=== PATIENT | male | born 1970 | race African-American/Black ===

== ENCOUNTER 2017-06-23 01:40 | Inpatient (IN) | payer MEDICAID ==
[~2017-06-23] VITALS: Ht 193 cm; Wt 122.5 kg
[~2017-06-23 01:40] MED LIST: ASPI-1160 PO; COR3 PO; DILT240C91 PO; FERR-63 PO; FURO40TA5 PO; GLYB2.5T4 PO; HYDR100T26 PO; INSULIN; LIP40 PO; LOSA100T3 PO
[2017-06-23] MEDS ORDERED: ASPIRIN 81MG TABLET PO STA (02:54)
[2017-06-23] MEDS ORDERED: MORPHINE SULFATE 4 MG/ML CPJ (NOT FOR IM USE) IV STA (02:54)
[2017-06-23] MEDS ORDERED: FUROSEMIDE 40MG/4ML VIAL IV STA (02:54)
[2017-06-23 03:28] LABS: BASOPHILS % 1.3 % (0.0-2.0); HEMATOCRIT. 25.1 % (42.0-52.0); LYMPHOCYTES % 25.7 % (20.0-50.0); MEAN CORPUSCULAR HEMOGLOBIN 28.1 pg (28.0-32.0); MEAN PLATELET VOLUME 7.7 fl (7.4-10.4); MONOCYTES % 7.6 % (2.0-8.0); NEUTROPHILS % 62.4 % (40.0-76.0); PLATELET 372 x1000/uL (130-400); RED BLOOD CELL COUNT 2.85 mill/uL (4.7-6.1); RED CELL DISTRIBUTION WIDTH 14.3 % (11.6-14.6)
[2017-06-23 03:33] LABS: PARTIAL THROMBOPLASTIN TIME 31.3 sec (23.4-31.0); PROTHROMBIN TIME 10.1 sec (9.4-11.6)
[2017-06-23 03:43] LABS: CARBON DIOXIDE 23 mEq/L (21-32); CHLORIDE 111 mEq/L (98-107); TROPONIN I 0.04 ng/mL (0.00-0.04)
[2017-06-23 08:59] VITALS: BP 164/90
[2017-06-23 11:24] VITALS: BP 179/109
[2017-06-23 12:36] VITALS: BP 164/90
[2017-06-23] MEDS ORDERED: DEXTROSE 50% WATER 50ML SYRINGE IV PRN (13:15)
[2017-06-23] MEDS ORDERED: CLONIDINE 0.1MG TABLET PO PRN (13:15)
[2017-06-23] MEDS ORDERED: ASPIRIN 81MG TABLET PO SCH (13:15)
[2017-06-23] MEDS ORDERED: LORAZEPAM 1MG TABLET PO PRN (13:15)
[2017-06-23] MEDS ORDERED: HYDROCODONE/ACETAMINOPHEN 10/325MG TABLET PO PRN (13:15)
[2017-06-23] MEDS ORDERED: FUROSEMIDE 40MG TABLET PO SCH (13:15)
[2017-06-23] MEDS: FERROUS SULFATE 325MG TABLET PO SCH (14:49)
[2017-06-23] MEDS: LOSARTAN POTASSIUM 100 MG TABLET PO SCH (14:49)
[2017-06-23] MEDS: GLYBURIDE 5MG TABLET PO SCH (14:50)
[2017-06-23] MEDS: ENOXAPARIN 40MG/0.4ML SYR SUBCUT SCH (14:52)
[2017-06-23] MEDS ORDERED: FUROSEMIDE 40MG/4ML VIAL IVP SCH ×2 (15:30→21:00)
[2017-06-23 15:35] VITALS: BP 174/95
[2017-06-23 16:28] LABS: TROPONIN I 0.04 ng/mL (0.00-0.04)
[2017-06-23] MEDS: BLOOD SUGAR DIAGNOSTIC STRIP TEST SCH ×2 (17:20→21:00)
[2017-06-23] MEDS: INSULIN LISPRO 100 UNITS/ML SUBCUT SCH ×2 (18:41→21:00)
[2017-06-23 20:00] VITALS: BP 173/89
[2017-06-23] MEDS: FUROSEMIDE 40MG/4ML VIAL IVP SCH (20:52)
[2017-06-23] MEDS: CARVEDILOL 6.25 MG TABLET PO SCH (20:59)
[2017-06-23] MEDS ORDERED: CARVEDILOL 3.125 MG TABLET PO SCH (21:00)
[2017-06-23] MEDS: ATORVASTATIN CALCIUM 40MG TABLET PO SCH (21:00)
[2017-06-23] MEDS: HYDRALAZINE HCL 100MG TABLET PO SCH (21:00)
[2017-06-23] MEDS: DILTIAZEM HCL 240MG ER (24HR) PO SCH (21:00)
[2017-06-23 22:48] LABS: CLARITY URINE CLEAR (CLEAR); COLOR URINE YELLOW (YELLOW); KETONES URINE NEGATIVE (NEGATIVE); LEUKOCYTE ESTERASE URINE NEGATIVE (NEGATIVE); NITRITE URINE NEGATIVE (NEGATIVE); OCCULT BLOOD URINE TRACE (NEGATIVE); PROTEIN URINE 3+ (NEGATIVE); SPECIFIC GRAVITY URINE 1.014 (1.005-1.030); UROBILINOGEN URINE 0.2 E.U./dL (0.2-1.0)
[2017-06-23 23:00] LABS: *AMPHETAMINES SCREEN URINE NEGATIVE (NEGATIVE); *BARBITURATES SCREEN URINE NEGATIVE (NEGATIVE); *BENZODIAZEPINES SCREEN URINE NEGATIVE (NEGATIVE); *COCAINE SCREEN URINE NEGATIVE (NEGATIVE); CANNABINOID URINE SCREEN NEGATIVE (NEGATIVE); METHADONE URINE SCREEN NEGATIVE (NEGATIVE); OPIATES URINE SCREEN NEGATIVE (NEGATIVE); PHENCYCLIDINE URINE SCREEN NEGATIVE (NEGATIVE)
[2017-06-23 23:50] LABS: TROPONIN I 0.04 ng/mL (0.00-0.04)
[2017-06-24] VITALS: BP 170/106
[2017-06-24] MEDS: IPRATROPIUM/ALBUTEROL 0.5-3(2.5)MG/3ML NEB INH PRN ×2 (01:54→17:49)
[2017-06-24 04:00] VITALS: BP 134/83
[2017-06-24] MEDS: BLOOD SUGAR DIAGNOSTIC STRIP TEST SCH ×4 (06:14→21:07)
[2017-06-24] MEDS: FUROSEMIDE 40MG/4ML VIAL IVP SCH ×2 (06:14→17:48)
[2017-06-24] MEDS: INSULIN LISPRO 100 UNITS/ML SUBCUT SCH ×4 (07:50→21:00)
[2017-06-24 07:59] LABS: BASOPHILS % 1.6 % (0.0-2.0); EOSINOPHILS % 4.1 % (0.0-5.0); HEMATOCRIT. 22.8 % (42.0-52.0); HEMOGLOBIN. 7.5 g/dL (14.0-18.0); LYMPHOCYTES % 32.5 % (20.0-50.0); MEAN CORPUSCULAR HEMOGLOBIN 29.1 pg (28.0-32.0); MEAN CORPUSCULAR VOLUME 88.2 fL (80.0-94.0); MEAN PLATELET VOLUME 7.8 fl (7.4-10.4); MONOCYTES % 10.1 % (2.0-8.0); NEUTROPHILS % 51.7 % (40.0-76.0); PLATELET 328 x1000/uL (130-400); RED BLOOD CELL COUNT 2.58 mill/uL (4.7-6.1); RED CELL DISTRIBUTION WIDTH 14.6 % (11.6-14.6)
[2017-06-24 08:00] VITALS: BP 140/80
[2017-06-24 08:26] LABS: CARBON DIOXIDE 24 mEq/L (21-32); CHLORIDE 109 mEq/L (98-107); HDL CHOLESTEROL 44 mg/dL (40-59); LDL CHOLESTEROL 114 mg/dL (5-100)
[2017-06-24 08:53] LABS: PHOSPHORUS 5.4 mg/dL (2.5-4.9)
[2017-06-24] MEDS ORDERED: METOLAZONE 5MG TABLET PO SCH (09:00)
[2017-06-24] MEDS: FERROUS SULFATE 325MG TABLET PO SCH (09:31)
[2017-06-24] MEDS: LOSARTAN POTASSIUM 100 MG TABLET PO SCH (09:32)
[2017-06-24] MEDS: GLYBURIDE 5MG TABLET PO SCH (09:32)
[2017-06-24] MEDS: CARVEDILOL 6.25 MG TABLET PO SCH ×2 (09:34→21:02)
[2017-06-24] MEDS: DILTIAZEM HCL 240MG ER (24HR) PO SCH ×2 (09:40→21:02)
[2017-06-24] MEDS: ASPIRIN 81MG TABLET PO SCH (09:41)
[2017-06-24] MEDS: HYDRALAZINE HCL 100MG TABLET PO SCH ×2 (09:48→21:03)
[2017-06-24 10:19] LABS: BG BASE EXCESS -1.5 mmol/L (-2.0-2.0); BG CARBOXYHEMOGLOBIN 0.7 % (0.5-1.5); BG DEOXYHEMOGLOBIN 3.7 % (0.0-5.0); BG FRACTION INSPIRED OXYGEN 21; BG HCO3 ACT 22.6 mmol/L (22.0-26.0); BG METHEMOGLOBIN 0.1 % (0.0-1.5); BG OXYGEN SATURATION 96.3 % (92.0-98.5); BG OXYHEMOGLOBIN 95.5 % (94.0-97.0); BG PH 7.428 (7.350-7.450); BG PO2 90.2 mmHg (75.0-100.0); BG SAMPLE SITE LEFT RADIAL; BG TOTAL HEMOGLOBIN 7.4 g/dL (12.0-18.0); BG VENT MODE ROOM AIR
[2017-06-24 11:03] VITALS: BP 126/71
[2017-06-24] MEDS: ENOXAPARIN 40MG/0.4ML SYR SUBCUT SCH (15:23)
[2017-06-24 15:42] VITALS: BP 122/77
[2017-06-24] MEDS: SEVELAMER CARBONATE 800 MG TABLET PO SCH (18:26)
[2017-06-24 18:47] LABS: HEPATITIS B SURFACE ANTIGEN NEGATIVE
[2017-06-24 19:15] LABS: HEPATITIS B CORE AB IGM NEGATIVE
[2017-06-24 20:00] VITALS: BP 128/80
[2017-06-24] MEDS: EPOETIN ALFA 10000UNITS/ML VIAL SUBCUT SCH (21:03)
[2017-06-24] MEDS: ATORVASTATIN CALCIUM 40MG TABLET PO SCH (21:03)
[2017-06-25 00:10] VITALS: BP 141/77
[2017-06-25 04:00] VITALS: BP 151/80
[2017-06-25] MEDS: BLOOD SUGAR DIAGNOSTIC STRIP TEST SCH ×4 (06:44→21:05)
[2017-06-25 07:18] LABS: BASOPHILS % 1.1 % (0.0-2.0); HEMATOCRIT. 22.1 % (42.0-52.0); HEMOGLOBIN. 7.4 g/dL (14.0-18.0); LYMPHOCYTES % 25.5 % (20.0-50.0); MEAN CORPUSCULAR HEMOGLOBIN 29.3 pg (28.0-32.0); MEAN CORPUSCULAR VOLUME 87.6 fL (80.0-94.0); MEAN PLATELET VOLUME 7.9 fl (7.4-10.4); MONOCYTES % 9.6 % (2.0-8.0); NEUTROPHILS % 60.8 % (40.0-76.0); PLATELET 330 x1000/uL (130-400); RED BLOOD CELL COUNT 2.53 mill/uL (4.7-6.1); RED CELL DISTRIBUTION WIDTH 14.3 % (11.6-14.6)
[2017-06-25] MEDS: INSULIN LISPRO 100 UNITS/ML SUBCUT SCH ×4 (07:50→21:00)
[2017-06-25 08:05] VITALS: BP 140/84
[2017-06-25] MEDS: FUROSEMIDE 40MG/4ML VIAL IVP SCH ×2 (09:13→17:15)
[2017-06-25] MEDS: SEVELAMER CARBONATE 800 MG TABLET PO SCH ×3 (09:13→17:21)
[2017-06-25] MEDS: GLYBURIDE 5MG TABLET PO SCH (09:14)
[2017-06-25] MEDS: LOSARTAN POTASSIUM 100 MG TABLET PO SCH (09:16)
[2017-06-25] MEDS: DILTIAZEM HCL 240MG ER (24HR) PO SCH ×2 (09:16→21:02)
[2017-06-25] MEDS: FERROUS SULFATE 325MG TABLET PO SCH (09:17)
[2017-06-25] MEDS: CALCITRIOL 0.25MCG CAPSULE PO SCH (09:17)
[2017-06-25] MEDS: HYDRALAZINE HCL 100MG TABLET PO SCH ×2 (09:17→21:03)
[2017-06-25] MEDS: ASPIRIN 81MG TABLET PO SCH (09:17)
[2017-06-25] MEDS: CARVEDILOL 6.25 MG TABLET PO SCH (09:17)
[2017-06-25] MEDS: METOLAZONE 5MG TABLET PO SCH (09:23)
[2017-06-25] MEDS: FOLIC ACID/VITAMIN B COMP W-C TABLET PO SCH (12:45)
[2017-06-25] MEDS ORDERED: SODIUM BICARBONATE 4% (2.4MEQ) 5ML VIAL IV ONE (13:18)
[2017-06-25] MEDS ORDERED: LIDOCAINE HCL 1% 20ML VIAL (Pyxis) INJ ONE (13:18)
[2017-06-25] MEDS: ENOXAPARIN 40MG/0.4ML SYR SUBCUT SCH (14:00)
[2017-06-25 16:46] VITALS: BP 160/85
[2017-06-25 20:27] VITALS: BP 165/87
[2017-06-25] MEDS: ATORVASTATIN CALCIUM 40MG TABLET PO SCH (21:03)
[2017-06-25] MEDS: CARVEDILOL 12.5MG TABLET PO SCH (21:04)
[2017-06-26 00:49] VITALS: BP 155/83
[2017-06-26 05:49] VITALS: BP 142/75
[2017-06-26] MEDS: FUROSEMIDE 40MG/4ML VIAL IVP SCH ×2 (06:15→17:59)
[2017-06-26] MEDS: BLOOD SUGAR DIAGNOSTIC STRIP TEST SCH ×4 (06:27→21:00)
[2017-06-26] MEDS: INSULIN LISPRO 100 UNITS/ML SUBCUT SCH ×4 (07:39→23:06)
[2017-06-26 07:55] LABS: HEMOGLOBIN 7.8 g/dL (14.0-18.0); MEAN CORPUSCULAR HEMOGLOBIN 29.6 pg (28.0-32.0); MEAN CORPUSCULAR VOLUME 87.1 fL (80.0-94.0); PLATELET 330 x1000/uL (130-400); RED BLOOD CELL COUNT 2.64 mill/uL (4.7-6.1); RED CELL DISTRIBUTION WIDTH 14.5 % (11.6-14.6)
[2017-06-26 08:00] VITALS: BP 156/84
[2017-06-26] MEDS: HYDRALAZINE HCL 100MG TABLET PO SCH ×2 (09:29→23:01)
[2017-06-26] MEDS: FERROUS SULFATE 325MG TABLET PO SCH (09:29)
[2017-06-26] MEDS: ASPIRIN 81MG TABLET PO SCH (09:30)
[2017-06-26] MEDS: CALCITRIOL 0.25MCG CAPSULE PO SCH (09:30)
[2017-06-26] MEDS: SEVELAMER CARBONATE 800 MG TABLET PO SCH ×3 (09:30→19:01)
[2017-06-26] MEDS: CARVEDILOL 12.5MG TABLET PO SCH ×2 (09:30→22:55)
[2017-06-26] MEDS: DILTIAZEM HCL 240MG ER (24HR) PO SCH ×2 (09:30→23:04)
[2017-06-26] MEDS: FOLIC ACID/VITAMIN B COMP W-C TABLET PO SCH (09:30)
[2017-06-26] MEDS: GLYBURIDE 5MG TABLET PO SCH (09:30)
[2017-06-26] MEDS: METOLAZONE 5MG TABLET PO SCH (09:30)
[2017-06-26] MEDS: LOSARTAN POTASSIUM 100 MG TABLET PO SCH (10:04)
[2017-06-26] MEDS: ENOXAPARIN 40MG/0.4ML SYR SUBCUT SCH (14:00)
[2017-06-26] MEDS ORDERED: HEPARIN SODIUM 1,000 UNIT/1ML VIAL IV NR (15:15)
[2017-06-26 17:00] VITALS: BP 142/74
[2017-06-26 20:00] VITALS: BP 115/98
[2017-06-26 20:13] VITALS: BP 115/98
[2017-06-26] MEDS: EPOETIN ALFA 10000UNITS/ML VIAL SUBCUT SCH (21:00)
[2017-06-26] MEDS: ATORVASTATIN CALCIUM 40MG TABLET PO SCH (22:56)
[2017-06-27] VITALS: BP 172/94
[2017-06-27 04:00] VITALS: BP 135/84
[2017-06-27] MEDS: FUROSEMIDE 40MG/4ML VIAL IVP SCH ×3 (07:04→22:41)
[2017-06-27] MEDS: BLOOD SUGAR DIAGNOSTIC STRIP TEST SCH ×4 (07:20→21:49)
[2017-06-27 08:00] VITALS: BP 145/85
[2017-06-27] MEDS: DILTIAZEM HCL 240MG ER (24HR) PO SCH ×2 (09:00→20:10)
[2017-06-27] MEDS: LOSARTAN POTASSIUM 100 MG TABLET PO SCH (09:37)
[2017-06-27] MEDS: METOLAZONE 5MG TABLET PO SCH (09:37)
[2017-06-27] MEDS: SEVELAMER CARBONATE 800 MG TABLET PO SCH ×3 (09:38→18:37)
[2017-06-27] MEDS: FOLIC ACID/VITAMIN B COMP W-C TABLET PO SCH (09:38)
[2017-06-27] MEDS: ASPIRIN 81MG TABLET PO SCH (09:39)
[2017-06-27] MEDS: FERROUS SULFATE 325MG TABLET PO SCH (09:40)
[2017-06-27] MEDS: HYDRALAZINE HCL 100MG TABLET PO SCH ×2 (09:40→21:49)
[2017-06-27] MEDS: CARVEDILOL 12.5MG TABLET PO SCH ×2 (09:41→21:49)
[2017-06-27] MEDS: GLYBURIDE 5MG TABLET PO SCH (09:41)
[2017-06-27] MEDS: CALCITRIOL 0.25MCG CAPSULE PO SCH (09:42)
[2017-06-27 12:00] VITALS: BP 149/87
[2017-06-27] MEDS: INSULIN LISPRO 100 UNITS/ML SUBCUT SCH ×3 (13:06→21:00)
[2017-06-27] MEDS: ENOXAPARIN 40MG/0.4ML SYR SUBCUT SCH (14:41)
[2017-06-27 16:00] VITALS: BP 155/86
[2017-06-27 20:03] VITALS: BP 144/77
[2017-06-27] MEDS: ATORVASTATIN CALCIUM 40MG TABLET PO SCH (20:10)
[2017-06-27] MEDS: ACETAMINOPHEN 325MG TABLET PO PRN (20:11)
[2017-06-28] VITALS: BP 129/70
[2017-06-28 04:00] VITALS: BP 144/77
[2017-06-28 05:56] LABS: HEMOGLOBIN 7.4 g/dL (14.0-18.0); MEAN CORPUSCULAR HEMOGLOBIN 29.4 pg (28.0-32.0); MEAN CORPUSCULAR VOLUME 87.6 fL (80.0-94.0); PLATELET 300 x1000/uL (130-400); RED BLOOD CELL COUNT 2.52 mill/uL (4.7-6.1); RED CELL DISTRIBUTION WIDTH 14.2 % (11.6-14.6)
[2017-06-28] MEDS: BLOOD SUGAR DIAGNOSTIC STRIP TEST SCH ×4 (06:26→21:00)
[2017-06-28] MEDS: FUROSEMIDE 40MG/4ML VIAL IVP SCH ×2 (06:38→17:29)
[2017-06-28] MEDS: INSULIN LISPRO 100 UNITS/ML SUBCUT SCH ×4 (07:50→21:00)
[2017-06-28 08:20] VITALS: BP 155/73
[2017-06-28] MEDS: LOSARTAN POTASSIUM 100 MG TABLET PO SCH (08:28)
[2017-06-28] MEDS: GLYBURIDE 5MG TABLET PO SCH (08:28)
[2017-06-28] MEDS: FERROUS SULFATE 325MG TABLET PO SCH (08:28)
[2017-06-28] MEDS: SEVELAMER CARBONATE 800 MG TABLET PO SCH ×3 (08:28→17:29)
[2017-06-28] MEDS: DILTIAZEM HCL 240MG ER (24HR) PO SCH ×2 (08:28→22:24)
[2017-06-28] MEDS: METOLAZONE 5MG TABLET PO SCH (08:29)
[2017-06-28] MEDS: ASPIRIN 81MG TABLET PO SCH (08:29)
[2017-06-28] MEDS: CALCITRIOL 0.25MCG CAPSULE PO SCH (08:29)
[2017-06-28] MEDS: FOLIC ACID/VITAMIN B COMP W-C TABLET PO SCH (08:29)
[2017-06-28] MEDS: HYDRALAZINE HCL 100MG TABLET PO SCH ×2 (08:29→22:24)
[2017-06-28] MEDS: CARVEDILOL 12.5MG TABLET PO SCH ×2 (08:36→22:24)
[2017-06-28 12:28] VITALS: BP 115/63
[2017-06-28] MEDS: ENOXAPARIN 40MG/0.4ML SYR SUBCUT SCH (13:00)
[2017-06-28 16:00] VITALS: BP 100/70
[2017-06-28 20:00] VITALS: BP 139/74
[2017-06-28] MEDS: ATORVASTATIN CALCIUM 40MG TABLET PO SCH (22:24)
[2017-06-29] VITALS: BP 135/72
[2017-06-29 04:00] VITALS: BP 137/73
[2017-06-29] MEDS: BLOOD SUGAR DIAGNOSTIC STRIP TEST SCH ×4 (06:40→21:42)
[2017-06-29] MEDS: FUROSEMIDE 40MG/4ML VIAL IVP SCH ×2 (06:40→19:57)
[2017-06-29] MEDS: INSULIN LISPRO 100 UNITS/ML SUBCUT SCH ×5 (07:50→22:00)
[2017-06-29 07:54] VITALS: BP 140/77
[2017-06-29] MEDS: CARVEDILOL 12.5MG TABLET PO SCH ×2 (10:20→21:44)
[2017-06-29] MEDS: FOLIC ACID/VITAMIN B COMP W-C TABLET PO SCH (10:20)
[2017-06-29] MEDS: METOLAZONE 5MG TABLET PO SCH (10:20)
[2017-06-29] MEDS: FERROUS SULFATE 325MG TABLET PO SCH (10:20)
[2017-06-29] MEDS: SEVELAMER CARBONATE 800 MG TABLET PO SCH ×3 (10:21→19:56)
[2017-06-29] MEDS: DILTIAZEM HCL 240MG ER (24HR) PO SCH ×2 (10:21→21:42)
[2017-06-29] MEDS: CALCITRIOL 0.25MCG CAPSULE PO SCH (10:21)
[2017-06-29] MEDS: HYDRALAZINE HCL 100MG TABLET PO SCH ×2 (10:21→21:43)
[2017-06-29] MEDS: GLYBURIDE 5MG TABLET PO SCH (10:22)
[2017-06-29 12:22] VITALS: BP 135/69
[2017-06-29 13:28] LABS: HEMATOCRIT. 22.1 % (42.0-52.0); HEMOGLOBIN. 7.2 g/dL (14.0-18.0); MEAN CORPUSCULAR HEMOGLOBIN 28.5 pg (28.0-32.0); MEAN CORPUSCULAR VOLUME 87.4 fL (80.0-94.0); MEAN PLATELET VOLUME 7.9 fl (7.4-10.4); PLATELET 315 x1000/uL (130-400); RED BLOOD CELL COUNT 2.53 mill/uL (4.7-6.1); RED CELL DISTRIBUTION WIDTH 14.5 % (11.6-14.6)
[2017-06-29 13:54] LABS: PLATELET ESTIMATE NORMAL
[2017-06-29] MEDS: LOSARTAN POTASSIUM 100 MG TABLET PO SCH (13:56)
[2017-06-29] MEDS: ASPIRIN 81MG TABLET PO SCH (13:56)
[2017-06-29 16:17] VITALS: BP 120/61
[2017-06-29] MEDS: ENOXAPARIN 40MG/0.4ML SYR SUBCUT SCH (19:56)
[2017-06-29 20:00] VITALS: BP 133/71
[2017-06-29] MEDS: ATORVASTATIN CALCIUM 40MG TABLET PO SCH (21:43)
[2017-06-29] MEDS: EPOETIN ALFA 10000UNITS/ML VIAL SUBCUT SCH (21:47)
[2017-06-30] VITALS: BP 108/70
[2017-06-30 03:48] VITALS: BP 140/67
[2017-06-30] MEDS: INSULIN LISPRO 100 UNITS/ML SUBCUT SCH ×4 (06:27→21:00)
[2017-06-30] MEDS: BLOOD SUGAR DIAGNOSTIC STRIP TEST SCH ×4 (06:27→21:26)
[2017-06-30] MEDS: FUROSEMIDE 40MG/4ML VIAL IVP SCH ×2 (06:29→17:39)
[2017-06-30 08:00] VITALS: BP 142/69
[2017-06-30] MEDS: SEVELAMER CARBONATE 800 MG TABLET PO SCH ×4 (09:24→17:45)
[2017-06-30] MEDS: GLYBURIDE 5MG TABLET PO SCH (09:24)
[2017-06-30] MEDS: CALCITRIOL 0.25MCG CAPSULE PO SCH (09:24)
[2017-06-30] MEDS: FERROUS SULFATE 325MG TABLET PO SCH (09:24)
[2017-06-30] MEDS: ASPIRIN 81MG TABLET PO SCH (09:25)
[2017-06-30] MEDS: LOSARTAN POTASSIUM 100 MG TABLET PO SCH (09:25)
[2017-06-30] MEDS: FOLIC ACID/VITAMIN B COMP W-C TABLET PO SCH (09:25)
[2017-06-30] MEDS: HYDRALAZINE HCL 100MG TABLET PO SCH ×2 (09:25→21:21)
[2017-06-30] MEDS: CARVEDILOL 12.5MG TABLET PO SCH ×2 (09:25→21:20)
[2017-06-30] MEDS: METOLAZONE 5MG TABLET PO SCH (09:26)
[2017-06-30] MEDS: DILTIAZEM HCL 240MG ER (24HR) PO SCH ×2 (09:28→21:19)
[2017-06-30 13:00] VITALS: BP 114/54
[2017-06-30] MEDS ORDERED: FURO80TA87 PO (13:32)
[2017-06-30 17:00] VITALS: BP 124/61
[2017-06-30] MEDS: ENOXAPARIN 40MG/0.4ML SYR SUBCUT SCH (17:39)
[2017-06-30 20:00] VITALS: BP 134/76
[2017-06-30] MEDS: ATORVASTATIN CALCIUM 40MG TABLET PO SCH (21:21)
[2017-07-01] VITALS (11 sets, daily range): BP systolic 110–166; BP diastolic 56–87
[2017-07-01] MEDS: FUROSEMIDE 40MG/4ML VIAL IVP SCH ×2 (06:09→17:57)
[2017-07-01] MEDS: BLOOD SUGAR DIAGNOSTIC STRIP TEST SCH ×4 (06:10→21:00)
[2017-07-01] MEDS: INSULIN LISPRO 100 UNITS/ML SUBCUT SCH ×4 (06:12→21:00)
[2017-07-01 07:08] LABS: HEMATOCRIT 22.7 % (42.0-52.0); HEMOGLOBIN 7.6 g/dL (14.0-18.0); MEAN CORPUSCULAR HEMOGLOBIN 29.1 pg (28.0-32.0); MEAN CORPUSCULAR VOLUME 87.2 fL (80.0-94.0); PLATELET 332 x1000/uL (130-400); RED CELL DISTRIBUTION WIDTH 14.1 % (11.6-14.6)
[2017-07-01] MEDS: SEVELAMER CARBONATE 800 MG TABLET PO SCH ×3 (07:50→18:00)
[2017-07-01] MEDS: LOSARTAN POTASSIUM 100 MG TABLET PO SCH (09:00)
[2017-07-01] MEDS: METOLAZONE 5MG TABLET PO SCH (09:00)
[2017-07-01] MEDS: FOLIC ACID/VITAMIN B COMP W-C TABLET PO SCH (09:00)
[2017-07-01] MEDS: HYDRALAZINE HCL 100MG TABLET PO SCH ×3 (09:00→21:19)
[2017-07-01] MEDS: DILTIAZEM HCL 240MG ER (24HR) PO SCH ×3 (10:49→21:19)
[2017-07-01] MEDS: GLYBURIDE 5MG TABLET PO SCH (10:50)
[2017-07-01] MEDS: ASPIRIN 81MG TABLET PO SCH (10:50)
[2017-07-01] MEDS: CALCITRIOL 0.25MCG CAPSULE PO SCH (10:50)
[2017-07-01] MEDS: CARVEDILOL 12.5MG TABLET PO SCH ×2 (10:50→21:19)
[2017-07-01] MEDS: FERROUS SULFATE 325MG TABLET PO SCH (10:51)
[2017-07-01] MEDS: ENOXAPARIN 40MG/0.4ML SYR SUBCUT SCH (16:15)
[2017-07-01] MEDS: ATORVASTATIN CALCIUM 40MG TABLET PO SCH (21:19)
[2017-07-02] VITALS (14 sets, daily range): BP systolic 119–151; BP diastolic 63–85
[2017-07-02] MEDS: BLOOD SUGAR DIAGNOSTIC STRIP TEST SCH ×4 (06:35→21:00)
[2017-07-02] MEDS: INSULIN LISPRO 100 UNITS/ML SUBCUT SCH ×4 (06:36→21:00)
[2017-07-02] MEDS: FUROSEMIDE 40MG/4ML VIAL IVP SCH ×2 (07:04→17:51)
[2017-07-02] MEDS ORDERED: LIDOCAINE HCL 1% 20ML VIAL (Pyxis) INJ ONE (09:34)
[2017-07-02] MEDS ORDERED: SODIUM BICARBONATE 4% (2.4MEQ) 5ML VIAL IV ONE (09:34)
[2017-07-02] MEDS ORDERED: CEFAZOLIN 1000MG PREMIX 50 ML IV SCH (10:20)
[2017-07-02] MEDS ORDERED: FENTANYL CITRATE/PF 50MCG/ML 2ML VIAL ONE (10:20)
[2017-07-02] MEDS ORDERED: CEFAZOLIN 1000MG PREMIX 50 ML IV ONE (10:20)
[2017-07-02] MEDS ORDERED: FENTANYL CITRATE/PF 50MCG/ML 2ML VIAL IV ONE (10:30)
[2017-07-02] MEDS: CALCITRIOL 0.25MCG CAPSULE PO SCH (14:02)
[2017-07-02] MEDS: FOLIC ACID/VITAMIN B COMP W-C TABLET PO SCH (14:02)
[2017-07-02] MEDS: SEVELAMER CARBONATE 800 MG TABLET PO SCH ×2 (14:02→17:50)
[2017-07-02] MEDS: GLYBURIDE 5MG TABLET PO SCH (14:03)
[2017-07-02] MEDS: LOSARTAN POTASSIUM 100 MG TABLET PO SCH (14:03)
[2017-07-02] MEDS: ASPIRIN 81MG TABLET PO SCH (14:03)
[2017-07-02] MEDS: CARVEDILOL 12.5MG TABLET PO SCH (14:03)
[2017-07-02] MEDS: FERROUS SULFATE 325MG TABLET PO SCH (14:04)
[2017-07-02] MEDS: HYDRALAZINE HCL 100MG TABLET PO SCH (14:04)
[2017-07-02] MEDS: METOLAZONE 10MG TABLET PO SCH (14:05)
[2017-07-02] MEDS: DILTIAZEM HCL 240MG ER (24HR) PO SCH (14:05)
[2017-07-02] MEDS: ENOXAPARIN 40MG/0.4ML SYR SUBCUT SCH (14:09)
[2017-07-02] MEDS: ACETAMINOPHEN 325MG TABLET PO PRN (17:50)
[2017-07-02] MEDS ORDERED: EPOETIN ALFA 10000UNITS/ML VIAL SUBCUT SCH (21:00)
[2017-07-02] MEDS: ATORVASTATIN CALCIUM 40MG TABLET PO SCH (21:05)
[2017-07-02] MEDS: CARVEDILOL 25MG TABLET PO SCH (21:05)
[2017-07-03] VITALS: BP 145/82
[2017-07-03] MEDS: ACETAMINOPHEN 325MG TABLET PO PRN ×2 (00:32→08:56)
[2017-07-03 04:00] VITALS: BP 135/75
[2017-07-03 06:37] LABS: BASOPHILS % 0.7 % (0.0-2.0); EOSINOPHILS % 2.6 % (0.0-5.0); HEMOGLOBIN. 9.5 g/dL (14.0-18.0); LYMPHOCYTES % 25.7 % (20.0-50.0); MEAN CORPUSCULAR HEMOGLOBIN 29.2 pg (28.0-32.0); MEAN CORPUSCULAR VOLUME 86.5 fL (80.0-94.0); MEAN PLATELET VOLUME 7.8 fl (7.4-10.4); MONOCYTES % 14.4 % (2.0-8.0); NEUTROPHILS % 56.6 % (40.0-76.0); PLATELET 354 x1000/uL (130-400); RED BLOOD CELL COUNT 3.24 mill/uL (4.7-6.1); RED CELL DISTRIBUTION WIDTH 14.2 % (11.6-14.6)
[2017-07-03] MEDS: FUROSEMIDE 40MG/4ML VIAL IVP SCH ×2 (07:01→18:28)
[2017-07-03] MEDS: BLOOD SUGAR DIAGNOSTIC STRIP TEST SCH ×3 (07:20→17:20)
[2017-07-03 07:46] VITALS: BP 138/65
[2017-07-03] MEDS: INSULIN LISPRO 100 UNITS/ML SUBCUT SCH ×3 (07:50→17:38)
[2017-07-03] MEDS: SEVELAMER CARBONATE 800 MG TABLET PO SCH ×3 (08:24→18:28)
[2017-07-03] MEDS: HYDRALAZINE HCL 100MG TABLET PO SCH (08:54)
[2017-07-03] MEDS: GLYBURIDE 5MG TABLET PO SCH (08:54)
[2017-07-03] MEDS: ASPIRIN 81MG TABLET PO SCH (08:54)
[2017-07-03] MEDS: FERROUS SULFATE 325MG TABLET PO SCH (08:55)
[2017-07-03] MEDS: LOSARTAN POTASSIUM 100 MG TABLET PO SCH (08:55)
[2017-07-03] MEDS: FOLIC ACID/VITAMIN B COMP W-C TABLET PO SCH (08:55)
[2017-07-03] MEDS: CARVEDILOL 25MG TABLET PO SCH (08:55)
[2017-07-03] MEDS: CALCITRIOL 0.25MCG CAPSULE PO SCH (08:55)
[2017-07-03] MEDS: METOLAZONE 10MG TABLET PO SCH (08:55)
[2017-07-03] MEDS: DILTIAZEM HCL 240MG ER (24HR) PO SCH (08:56)
[2017-07-03 11:44] VITALS: BP 125/70
[2017-07-03] MEDS: ENOXAPARIN 40MG/0.4ML SYR SUBCUT SCH (13:36)
[2017-07-03 16:00] VITALS: BP 116/64
[2017-07-03 17:58] VITALS: BP 126/65
== END 2017-07-03 19:10 | disposition home or self-care (01) | DRG 133 ==
LOC: ER 01:40 → 6WST 05:22 → EDBEDREQ 05:26 → EDBEDREQTM 05:26 → ENRESERV 07:13
PROVIDERS: ADMIT Internal Medicine; ATTEND Internal Medicine
PROC: 02HV33Z Insertion of Infusion Device into Superior Vena Cava, Percutaneous Approach (ICD-10-PCS; principal; 2017-06-25)
PROC: B548ZZA Ultrasonography of Superior Vena Cava, Guidance (ICD-10-PCS; 2017-06-25)
PROC: 5A1D70Z Performance of Urinary Filtration, Intermittent, Less than 6 Hours Per Day (ICD-10-PCS; 2017-06-26)
PROC: 5A1D70Z Performance of Urinary Filtration, Intermittent, Less than 6 Hours Per Day (ICD-10-PCS; 2017-06-29)
PROC: 30233N1 Transfusion of Nonautologous Red Blood Cells into Peripheral Vein, Percutaneous Approach (ICD-10-PCS; 2017-07-01)
PROC: 5A1D70Z Performance of Urinary Filtration, Intermittent, Less than 6 Hours Per Day (ICD-10-PCS; 2017-07-01)
PROC: 02PYX3Z Removal of Infusion Device from Great Vessel, External Approach (ICD-10-PCS; 2017-07-02)
PROC: 02HV33Z Insertion of Infusion Device into Superior Vena Cava, Percutaneous Approach (ICD-10-PCS; 2017-07-02)
PROC: B548ZZA Ultrasonography of Superior Vena Cava, Guidance (ICD-10-PCS; 2017-07-02)
PROC: 0JH63XZ Insertion of Tunneled Vascular Access Device into Chest Subcutaneous Tissue and Fascia, Percutaneous Approach (ICD-10-PCS; 2017-07-02)
PROC: 5A1D70Z Performance of Urinary Filtration, Intermittent, Less than 6 Hours Per Day (ICD-10-PCS; 2017-07-03)
DX: J96.00 Acute respiratory failure, unspecified whether with hypoxia or hypercapnia (principal); E43 Unspecified severe protein-calorie malnutrition; I50.43 Acute on chronic combined systolic (congestive) and diastolic (congestive) heart failure; N17.9 Acute kidney failure, unspecified; I43 Cardiomyopathy in diseases classified elsewhere; E11.22 Type 2 diabetes mellitus with diabetic chronic kidney disease; N18.6 End stage renal disease; E11.51 Type 2 diabetes mellitus with diabetic peripheral angiopathy without gangrene; I13.2 Hypertensive heart and chronic kidney disease with heart failure and with stage 5 chronic kidney disease, or end stage renal disease; E66.01 Morbid (severe) obesity due to excess calories; E11.319 Type 2 diabetes mellitus with unspecified diabetic retinopathy without macular edema; I16.0 Hypertensive urgency; D63.1 Anemia in chronic kidney disease; I89.0 Lymphedema, not elsewhere classified; D50.9 Iron deficiency anemia, unspecified; E11.622 Type 2 diabetes mellitus with other skin ulcer; E78.00 Pure hypercholesterolemia, unspecified; E78.5 Hyperlipidemia, unspecified; I83.019 Varicose veins of right lower extremity with ulcer of unspecified site; I83.029 Varicose veins of left lower extremity with ulcer of unspecified site; L97.919 Non-pressure chronic ulcer of unspecified part of right lower leg with unspecified severity; L97.929 Non-pressure chronic ulcer of unspecified part of left lower leg with unspecified severity; N04.9 Nephrotic syndrome with unspecified morphologic changes; Z91.018 Allergy to other foods; Z79.84 Long term (current) use of oral hypoglycemic drugs; Z79.899 Other long term (current) drug therapy; Z79.82 Long term (current) use of aspirin; Z68.32 Body mass index [BMI] 32.0-32.9, adult
CPT/HCPCS: 36415; 36556; 36558; 36589; 36600; 71010; 76937; 77001; 80048; 80053; 80061; 80305; 81001; 82270; 82375; 82550; 82575; 82728; 82805; 82962; 83540; 83550; 83690; 83735; 83880; 83970; 84100; 84156; 84443; 84484; 85025; 85027; 85610; 85730; 86705; 86803; 86850; 86900; 86920; 87040; 87340; 93005; 93306; 93970; 94640; 94664; 96374; 96375; 97162; 99285; C1750; C1752; C1769; J0690; J0885; J1642; J1644; J1650; J1815; J1940; J2270; J3010; J3490; J7030; J7620; P9016

== ENCOUNTER 2017-10-03 13:23 | Emergency (ER) | payer MEDICAID ==
[~2017-10-03] VITALS: Ht 180.3 cm; Wt 123.6 kg
[~2017-10-03 13:23] MED LIST changes: -FURO40TA5 PO; -INSULIN
[2017-10-03] MEDS ORDERED: LABETALOL 5MG/ML SYR 20 MG/4 ML SYRINGE IV ONE ×2 (14:00)
[2017-10-03 14:10] LABS: BASOPHILS % 0.6 % (0.0-2.0); EOSINOPHILS % 0.9 % (0.0-5.0); HEMATOCRIT. 36.5 % (42.0-52.0); HEMOGLOBIN. 12.6 g/dL (14.0-18.0); LYMPHOCYTES % 19.5 % (20.0-50.0); MEAN CORPUSCULAR VOLUME 84.1 fL (80.0-94.0); MONOCYTES % 9.7 % (2.0-8.0); NEUTROPHILS % 69.3 % (40.0-76.0); PLATELET 287 x1000/uL (130-400); RED BLOOD CELL COUNT 4.34 mill/uL (4.7-6.1); RED CELL DISTRIBUTION WIDTH 14.9 % (11.6-14.6)
[2017-10-03 14:19] LABS: PARTIAL THROMBOPLASTIN TIME 29.6 sec (23.4-31.0)
[2017-10-03 14:20] LABS: CHLORIDE 97 mEq/L (98-107); ETHANOL BLOOD < 10 mg/dL
[2017-10-03] MEDS ORDERED: ALTEPLASE 100MG/VIAL IV STA (14:25)
[2017-10-03] MEDS ORDERED: ALTEPLASE 81 MG in BAG 1 EACH IV STA (14:25)
[2017-10-03 14:26] LABS: CREATINE KINASE 457 IU/L (39-308); LDL CHOLESTEROL 122 mg/dL (5-100)
[2017-10-03 14:30] LABS: CREATINE KINASE MB FRACTION 5.1 ng/mL (0.5-3.6)
[2017-10-03] MEDS ORDERED: NICARDIPINE 40MG/200ML PREMIX 200 ML IV SCH (14:30)
[2017-10-03] MEDS ORDERED: HYDRALAZINE 20MG/ML VIAL IV ONE (14:30)
[2017-10-03] MEDS ORDERED: MORPHINE SULFATE 10 MG/ML CPJ IV ONE (14:30)
[2017-10-03] MEDS ORDERED: ONDANSETRON HCL 4MG/2ML VIAL IV ONE (14:30)
[2017-10-03] MEDS ORDERED: NICARDIPINE 50 MG in SODIUM CHLORIDE 0.9% 230 ML IV PRN (14:30)
[2017-10-03 16:00] VITALS: BP 132/77
== END 2017-10-03 16:59 | disposition short-term general hospital (02) ==
LOC: ER 13:36
DX: I63.9 Cerebral infarction, unspecified (principal); N17.9 Acute kidney failure, unspecified; R26.89 Other abnormalities of gait and mobility; E11.22 Type 2 diabetes mellitus with diabetic chronic kidney disease; I12.0 Hypertensive chronic kidney disease with stage 5 chronic kidney disease or end stage renal disease; N18.6 End stage renal disease; W01.0XXA Fall on same level from slipping, tripping and stumbling without subsequent striking against object, initial encounter; Y93.89 Activity, other specified; Y99.8 Other external cause status; Y92.89 Other specified places as the place of occurrence of the external cause; Z79.82 Long term (current) use of aspirin; Z99.2 Dependence on renal dialysis; Z91.018 Allergy to other foods
CPT/HCPCS: 36415; 37195; 70450; 71045; 80053; 82550; 82553; 83721; 83880; 84484; 85025; 85610; 85730; 93005; 96365; 96375; 99291; G0482; J0360; J2270; J2405; J2997; J3490; J7050

== ENCOUNTER 2017-11-09 18:24 | Emergency (ER) | payer MEDICAID ==
[~2017-11-09] VITALS: Ht 172.7 cm; Wt 120.0 kg
[2017-11-09] MEDS ORDERED: CLONIDINE 0.1MG TABLET PO ONE (19:00)
[2017-11-09 19:11] LABS: BASOPHILS % 1.2 % (0.0-2.0); EOSINOPHILS % 0.6 % (0.0-5.0); HEMATOCRIT. 32.8 % (42.0-52.0); HEMOGLOBIN. 10.8 g/dL (14.0-18.0); LYMPHOCYTES % 15.3 % (20.0-50.0); MEAN CORPUSCULAR HEMOGLOBIN 29.8 pg (28.0-32.0); MEAN PLATELET VOLUME 6.9 fl (7.4-10.4); MONOCYTES % 9.5 % (2.0-8.0); NEUTROPHILS % 73.4 % (40.0-76.0); PLATELET 391 x1000/uL (130-400); RED BLOOD CELL COUNT 3.64 mill/uL (4.7-6.1); RED CELL DISTRIBUTION WIDTH 15.6 % (11.6-14.6)
[2017-11-09 19:16] LABS: CHLORIDE 111 mEq/L (98-107)
[2017-11-09 19:18] LABS: PROTHROMBIN TIME 10.2 sec (9.4-11.6)
[2017-11-09 20:54] VITALS: BP 165/88
== END 2017-11-09 20:56 | disposition home or self-care (01) ==
LOC: ER 18:24
DX: T82.49XA Other complication of vascular dialysis catheter, initial encounter (principal); I13.2 Hypertensive heart and chronic kidney disease with heart failure and with stage 5 chronic kidney disease, or end stage renal disease; E11.22 Type 2 diabetes mellitus with diabetic chronic kidney disease; N18.6 End stage renal disease; I50.9 Heart failure, unspecified; Z99.2 Dependence on renal dialysis; Y84.1 Kidney dialysis as the cause of abnormal reaction of the patient, or of later complication, without mention of misadventure at the time of the procedure; Y92.018 Other place in single-family (private) house as the place of occurrence of the external cause
CPT/HCPCS: 36415; 80053; 85025; 85610; 99284

== ENCOUNTER 2017-11-10 08:36 | Emergency (ER) | payer MEDICAID ==
[~2017-11-10] VITALS: Ht 172.7 cm; Wt 120.0 kg
[2017-11-10 09:37] LABS: BASOPHILS % 1.2 % (0.0-2.0); EOSINOPHILS % 1.6 % (0.0-5.0); HEMATOCRIT. 30.7 % (42.0-52.0); HEMOGLOBIN. 10.1 g/dL (14.0-18.0); LYMPHOCYTES % 20.9 % (20.0-50.0); MEAN CORPUSCULAR HEMOGLOBIN 29.5 pg (28.0-32.0); MEAN CORPUSCULAR VOLUME 89.6 fL (80.0-94.0); MEAN PLATELET VOLUME 6.8 fl (7.4-10.4); NEUTROPHILS % 62.3 % (40.0-76.0); PLATELET 344 x1000/uL (130-400); RED BLOOD CELL COUNT 3.42 mill/uL (4.7-6.1); RED CELL DISTRIBUTION WIDTH 15.5 % (11.6-14.6)
[2017-11-10 09:46] LABS: CHLORIDE 111 mEq/L (98-107)
[2017-11-10 09:49] LABS: PROTHROMBIN TIME 10.2 sec (9.4-11.6)
[2017-11-10] MEDS ORDERED: LIDOCAINE HCL/PF 1% 10 MG/ML 5ML VIAL ONE (10:32)
[2017-11-10] MEDS ORDERED: SODIUM BICARBONATE 4% (2.4MEQ) 5ML VIAL IV ONE (10:32)
[2017-11-10] MEDS ORDERED: IOHEXOL-300 50 ML BOTTLE IV ONE (10:57)
[2017-11-10 11:54] VITALS: BP 185/96
== END 2017-11-10 12:03 | disposition home or self-care (01) ==
LOC: ER 09:13
DX: T82.41XA Breakdown (mechanical) of vascular dialysis catheter, initial encounter (principal); Y84.1 Kidney dialysis as the cause of abnormal reaction of the patient, or of later complication, without mention of misadventure at the time of the procedure; Y92.9 Unspecified place or not applicable; I12.0 Hypertensive chronic kidney disease with stage 5 chronic kidney disease or end stage renal disease; E11.22 Type 2 diabetes mellitus with diabetic chronic kidney disease; N18.6 End stage renal disease; D64.9 Anemia, unspecified; Z99.2 Dependence on renal dialysis; Z79.82 Long term (current) use of aspirin
CPT/HCPCS: 36415; 36581; 75827; 77001; 80053; 85025; 85610; 99285; C1725; C1750; C1769; J1642; J3490; Q9967

== ENCOUNTER 2018-08-13 05:30 | Inpatient (IN) | payer MEDICAID ==
[~2018-08-13] VITALS: Ht 193 cm; Wt 121.1 kg
[2018-08-13] VITALS (8 sets, daily range): BP systolic 136–153; BP diastolic 65–80
[~2018-08-13 05:30] MED LIST changes: -FERR-63 PO; +FERR325T23 PO; +INSLIS SUBCUT; +LANTUSUD SUBCUT; +LISI-604 PO; +MULT-1204 PO
[2018-08-13] MEDS ORDERED: ONDANSETRON HCL 4MG/2ML INJ IV STA (07:45)
[2018-08-13 08:42] LABS: BASOPHILS % 0.7 % (0.0-2.0); LYMPHOCYTES % 19.9 % (20.0-50.0); MEAN CORPUSCULAR HEMOGLOBIN 29.6 pg (28.0-32.0); MEAN CORPUSCULAR VOLUME 90.5 fL (80.0-94.0); MEAN PLATELET VOLUME 7.5 fl (7.4-10.4); MONOCYTES % 7.5 % (2.0-8.0); NEUTROPHILS % 70.9 % (40.0-76.0); PLATELET 391 x1000/uL (130-400); RED BLOOD CELL COUNT 1.76 mill/uL (4.7-6.1)
[2018-08-13 08:43] LABS: CHLORIDE 99 mEq/L (98-107)
[2018-08-13 08:44] LABS: PROTHROMBIN TIME 9.8 sec (9.1-11.1)
[2018-08-13 08:49] LABS: ETHANOL BLOOD < 10 mg/dL
[2018-08-13 08:54] LABS: HEMATOCRIT. 15.9 % (42.0-52.0); HEMOGLOBIN. 5.2 g/dL (14.0-18.0)
[2018-08-13] MEDS ORDERED: ACETAMINOPHEN 325MG TABLET PO PRN ×2 (11:15→14:00)
[2018-08-13] MEDS ORDERED: SODIUM CHLORIDE 0.9% 1,000 ML IV SCH (13:47)
[2018-08-13] MEDS ORDERED: LORAZEPAM 0.5MG TABLET PO PRN (14:00)
[2018-08-13] MEDS ORDERED: DIPHENHYDRAMINE 50MG/ML VIAL IV PRN (14:00)
[2018-08-13] MEDS ORDERED: ONDANSETRON HCL 4MG/2ML INJ IV PRN (14:00)
[2018-08-13] MEDS ORDERED: CALCIUM ACETATE 667MG CAPSULE PO NR (14:30)
[2018-08-13] MEDS ORDERED: DEXTROSE 50% WATER 50ML SYRINGE IV PRN (17:15)
[2018-08-13] MEDS: BLOOD SUGAR DIAGNOSTIC STRIP TEST SCH ×2 (17:20→21:00)
[2018-08-13] MEDS: SEVELAMER CARBONATE 800 MG TABLET PO SCH (18:20)
[2018-08-13] MEDS: FERROUS SULFATE 325MG TABLET PO SCH (18:20)
[2018-08-13] MEDS: INSULIN LISPRO 100 UNITS/ML SUBCUT SCH ×2 (18:25→21:28)
[2018-08-13] MEDS: CARVEDILOL 3.125 MG TABLET PO SCH (21:26)
[2018-08-13] MEDS: ATORVASTATIN CALCIUM 40MG TABLET PO SCH (21:26)
[2018-08-13] MEDS: INSULIN GLARGINE UD 100 UNITS/ML SYR SUBCUT SCH (21:28)
[2018-08-13] MEDS: HYDRALAZINE HCL 50MG TABLET PO SCH (21:28)
[2018-08-13 22:52] LABS: CLARITY URINE CLEAR (CLEAR); COLOR URINE YELLOW (YELLOW); KETONES URINE NEGATIVE (NEGATIVE); LEUKOCYTE ESTERASE URINE NEGATIVE (NEGATIVE); NITRITE URINE NEGATIVE (NEGATIVE); OCCULT BLOOD URINE NEGATIVE (NEGATIVE); PROTEIN URINE 3+ (NEGATIVE); SPECIFIC GRAVITY URINE 1.017 (1.005-1.030); UROBILINOGEN URINE 0.2 E.U./dL (0.2-1.0)
[2018-08-14] VITALS (16 sets, daily range): BP systolic 137–188; BP diastolic 68–93
[2018-08-14] MEDS: HYDRALAZINE HCL 50MG TABLET PO SCH ×3 (06:04→20:32)
[2018-08-14] MEDS: BLOOD SUGAR DIAGNOSTIC STRIP TEST SCH ×4 (06:04→20:33)
[2018-08-14 07:11] LABS: BASOPHILS % 0.6 % (0.0-2.0); LYMPHOCYTES % 27.4 % (20.0-50.0); MEAN CORPUSCULAR HEMOGLOBIN 29.8 pg (28.0-32.0); MEAN CORPUSCULAR VOLUME 88.6 fL (80.0-94.0); MEAN PLATELET VOLUME 7.4 fl (7.4-10.4); MONOCYTES % 9.8 % (2.0-8.0); NEUTROPHILS % 60.2 % (40.0-76.0); PLATELET 305 x1000/uL (130-400); RED BLOOD CELL COUNT 2.14 mill/uL (4.7-6.1); RED CELL DISTRIBUTION WIDTH 14.6 % (11.6-14.6)
[2018-08-14] MEDS: INSULIN LISPRO 100 UNITS/ML SUBCUT SCH ×4 (07:50→21:00)
[2018-08-14 08:16] LABS: HEMOGLOBIN. 6.4 g/dL (14.0-18.0)
[2018-08-14] MEDS: SEVELAMER CARBONATE 800 MG TABLET PO SCH ×3 (08:19→18:25)
[2018-08-14] MEDS: FOLIC ACID/VITAMIN B COMP W-C TABLET PO SCH (08:19)
[2018-08-14] MEDS: DILTIAZEM HCL 120MG CAPSULE CD 24HR PO SCH (08:20)
[2018-08-14] MEDS: CARVEDILOL 3.125 MG TABLET PO SCH ×2 (08:21→20:32)
[2018-08-14] MEDS: FERROUS SULFATE 325MG TABLET PO SCH ×3 (08:21→18:24)
[2018-08-14] MEDS ORDERED: ASPIRIN 81MG TABLET PO SCH (09:00)
[2018-08-14] MEDS ORDERED: GLYBURIDE 2.5MG TABLET PO SCH (09:00)
[2018-08-14] MEDS ORDERED: POTASSIUM CHLORIDE 20MEQ TABLET SR PO NR (11:15)
[2018-08-14 12:30] LABS: TOTAL IRON BINDING CAPACITY 217 ug/dL (250-450)
[2018-08-14] MEDS: OMEPRAZOLE 20MG CAPSULE EXTENDED RELEASE PO SCH (13:19)
[2018-08-14] MEDS: ATORVASTATIN CALCIUM 40MG TABLET PO SCH (20:32)
[2018-08-14] MEDS ORDERED: EPOETIN ALFA 10000UNITS/ML VIAL SUBCUT SCH (21:00)
[2018-08-14] MEDS: INSULIN GLARGINE UD 100 UNITS/ML SYR SUBCUT SCH (22:28)
[2018-08-14] MEDS: CLONIDINE 0.1MG TABLET PO PRN (23:49)
[2018-08-15 00:43] LABS: HEMATOCRIT 25.2 % (42.0-52.0); HEMOGLOBIN 8.6 g/dL (14.0-18.0)
[2018-08-15 01:07] VITALS: BP 180/90
[2018-08-15 01:20] LABS: PROTHROMBIN TIME 9.7 sec (9.1-11.1)
[2018-08-15 04:00] VITALS: BP 161/85
[2018-08-15] MEDS: HYDRALAZINE HCL 50MG TABLET PO SCH ×3 (06:21→22:02)
[2018-08-15] MEDS: CLONIDINE 0.1MG TABLET PO PRN (06:21)
[2018-08-15 06:27] LABS: BASOPHILS % 0.4 % (0.0-2.0); EOSINOPHILS % 2.1 % (0.0-5.0); HEMOGLOBIN. 8.2 g/dL (14.0-18.0); LYMPHOCYTES % 19.9 % (20.0-50.0); MEAN CORPUSCULAR HEMOGLOBIN 30.3 pg (28.0-32.0); MEAN CORPUSCULAR VOLUME 88.2 fL (80.0-94.0); MEAN PLATELET VOLUME 7.4 fl (7.4-10.4); NEUTROPHILS % 68.6 % (40.0-76.0); PLATELET 330 x1000/uL (130-400); RED BLOOD CELL COUNT 2.72 mill/uL (4.7-6.1); RED CELL DISTRIBUTION WIDTH 14.5 % (11.6-14.6)
[2018-08-15 06:51] LABS: PHOSPHORUS 4.4 mg/dL (2.5-4.9)
[2018-08-15] MEDS: BLOOD SUGAR DIAGNOSTIC STRIP TEST SCH ×4 (07:20→20:13)
[2018-08-15 08:00] VITALS: BP 143/65
[2018-08-15] MEDS: INSULIN LISPRO 100 UNITS/ML SUBCUT SCH ×4 (08:01→20:34)
[2018-08-15] MEDS: OMEPRAZOLE 20MG CAPSULE EXTENDED RELEASE PO SCH (09:11)
[2018-08-15] MEDS: SEVELAMER CARBONATE 800 MG TABLET PO SCH ×3 (09:11→18:25)
[2018-08-15] MEDS: CARVEDILOL 3.125 MG TABLET PO SCH ×2 (09:11→20:32)
[2018-08-15] MEDS: FOLIC ACID/VITAMIN B COMP W-C TABLET PO SCH (09:11)
[2018-08-15] MEDS: FERROUS SULFATE 325MG TABLET PO SCH ×3 (09:12→18:25)
[2018-08-15] MEDS: DILTIAZEM HCL 120MG CAPSULE CD 24HR PO SCH (09:12)
[2018-08-15 12:00] VITALS: BP 148/81
[2018-08-15 16:00] VITALS: BP 139/66
[2018-08-15] MEDS ORDERED: METOCLOPRAMIDE HCL 10MG/2ML VIAL IV NR (19:29)
[2018-08-15] MEDS ORDERED: BISACODYL 5MG TABLET PO NR (19:34)
[2018-08-15 20:00] VITALS: BP 144/76
[2018-08-15] MEDS ORDERED: SORBITOL 70% SOLN 30ML PO SCH (20:00)
[2018-08-15] MEDS: ATORVASTATIN CALCIUM 40MG TABLET PO SCH (20:33)
[2018-08-15] MEDS: INSULIN GLARGINE UD 100 UNITS/ML SYR SUBCUT SCH (22:03)
[2018-08-15] MEDS ORDERED: METOCLOPRAMIDE HCL 10MG/2ML VIAL IV SCH (23:00)
[2018-08-15] MEDS ORDERED: BISACODYL 5MG TABLET PO SCH (23:00)
[2018-08-15] MEDS: DOCUSATE SODIUM 100MG CAPSULE PO PRN ×2 (23:01→23:02)
[2018-08-16 01:21] LABS: HEMATOCRIT 28.5 % (42.0-52.0); HEMOGLOBIN 9.5 g/dL (14.0-18.0)
[2018-08-16 01:38] LABS: FOLIC ACID (FOLATE) SERUM 13.5 ng/mL (>5.38)
[2018-08-16 04:00] VITALS: BP 164/83
[2018-08-16] MEDS ORDERED: BISACODYL 5MG TABLET PO SCH (04:00)
[2018-08-16] MEDS ORDERED: METOCLOPRAMIDE HCL 10MG/2ML VIAL IV SCH (04:00)
[2018-08-16] MEDS ORDERED: SORBITOL 70% SOLN 30ML PO SCH ×2 (05:00)
[2018-08-16] MEDS: BLOOD SUGAR DIAGNOSTIC STRIP TEST SCH ×4 (06:22→21:00)
[2018-08-16] MEDS: HYDRALAZINE HCL 50MG TABLET PO SCH ×3 (06:34→23:07)
[2018-08-16] MEDS: OMEPRAZOLE 20MG CAPSULE EXTENDED RELEASE PO SCH (06:34)
[2018-08-16] MEDS: INSULIN LISPRO 100 UNITS/ML SUBCUT SCH ×4 (07:36→21:00)
[2018-08-16] MEDS: SEVELAMER CARBONATE 800 MG TABLET PO SCH ×3 (07:50→17:50)
[2018-08-16 08:16] VITALS: BP 157/83
[2018-08-16] MEDS: CARVEDILOL 3.125 MG TABLET PO SCH ×2 (09:00→23:06)
[2018-08-16] MEDS: DILTIAZEM HCL 120MG CAPSULE CD 24HR PO SCH (09:00)
[2018-08-16 09:31] LABS: BASOPHILS % 0.5 % (0.0-2.0); EOSINOPHILS % 2.1 % (0.0-5.0); HEMATOCRIT. 26.5 % (42.0-52.0); HEMOGLOBIN. 9.1 g/dL (14.0-18.0); LYMPHOCYTES % 16.5 % (20.0-50.0); MEAN CORPUSCULAR HEMOGLOBIN 30.6 pg (28.0-32.0); MEAN PLATELET VOLUME 6.7 fl (7.4-10.4); MONOCYTES % 8.5 % (2.0-8.0); NEUTROPHILS % 72.4 % (40.0-76.0); PLATELET 380 x1000/uL (130-400); RED BLOOD CELL COUNT 2.98 mill/uL (4.7-6.1); RED CELL DISTRIBUTION WIDTH 14.8 % (11.6-14.6)
[2018-08-16 09:39] LABS: PARTIAL THROMBOPLASTIN TIME 28.2 sec (23.4-31.0); PROTHROMBIN TIME 9.9 sec (9.1-11.1)
[2018-08-16 09:42] LABS: CHLORIDE 108 mEq/L (98-107)
[2018-08-16] MEDS: FOLIC ACID/VITAMIN B COMP W-C TABLET PO SCH (10:35)
[2018-08-16] MEDS: FERROUS SULFATE 325MG TABLET PO SCH ×3 (10:48→17:50)
[2018-08-16] MEDS ORDERED: METOCLOPRAMIDE HCL 10MG/2ML VIAL IV NR (11:00)
[2018-08-16] MEDS ORDERED: SORBITOL 70% SOLN 30ML PO NR (11:00)
[2018-08-16] MEDS ORDERED: BISACODYL 5MG TABLET PO NR (11:00)
[2018-08-16 12:18] VITALS: BP 145/91
[2018-08-16] MEDS ORDERED: SIMETHICONE 40 MG/0.6 ML 30ML ONE (15:49)
[2018-08-16] MEDS ORDERED: MIDAZOLAM HCL 5 MG/5 ML VIAL ONE ×2 (15:49→17:33)
[2018-08-16] MEDS ORDERED: FENTANYL CITRATE/PF 50MCG/ML 2ML VIAL ONE (15:49)
[2018-08-16] MEDS ORDERED: DIPHENHYDRAMINE 50MG/ML VIAL ONE (15:50)
[2018-08-16] MEDS ORDERED: HYDRALAZINE 20MG/ML VIAL IV NR (16:00)
[2018-08-16] MEDS ORDERED: DIAZEPAM 5 MG/ML 2ML CPJ IV NR (16:00)
[2018-08-16] MEDS ORDERED: HYDRALAZINE 20MG/ML VIAL ONE (16:01)
[2018-08-16] MEDS ORDERED: MIDAZOLAM HCL 5 MG/5 ML VIAL IV PRN (16:06)
[2018-08-16] MEDS ORDERED: FENTANYL CITRATE/PF 50MCG/ML 2ML VIAL IV PRN (16:07)
[2018-08-16 20:00] VITALS: BP 161/87
[2018-08-16] MEDS: ATORVASTATIN CALCIUM 40MG TABLET PO SCH (23:06)
[2018-08-16] MEDS: INSULIN GLARGINE UD 100 UNITS/ML SYR SUBCUT SCH (23:08)
[2018-08-17] VITALS: BP 181/93
[2018-08-17 04:00] VITALS: BP 133/79
[2018-08-17] MEDS: HYDRALAZINE HCL 50MG TABLET PO SCH (06:26)
[2018-08-17] MEDS: OMEPRAZOLE 20MG CAPSULE EXTENDED RELEASE PO SCH (06:26)
[2018-08-17] MEDS: BLOOD SUGAR DIAGNOSTIC STRIP TEST SCH ×2 (06:26→12:39)
[2018-08-17] MEDS: INSULIN LISPRO 100 UNITS/ML SUBCUT SCH ×2 (07:50→12:50)
[2018-08-17 08:00] VITALS: BP 128/60
[2018-08-17] MEDS: CARVEDILOL 3.125 MG TABLET PO SCH (08:36)
[2018-08-17] MEDS: SEVELAMER CARBONATE 800 MG TABLET PO SCH ×2 (08:36→13:04)
[2018-08-17] MEDS: DILTIAZEM HCL 120MG CAPSULE CD 24HR PO SCH (08:36)
[2018-08-17] MEDS: FOLIC ACID/VITAMIN B COMP W-C TABLET PO SCH (08:37)
[2018-08-17] MEDS: FERROUS SULFATE 325MG TABLET PO SCH ×2 (08:37→13:04)
[2018-08-17 12:00] VITALS: BP 128/60
[2018-08-17] MEDS ORDERED: PROT40 MT (12:01)
[2018-08-17 12:32] VITALS: BP 151/87
[2018-08-17] MEDS ORDERED: SODIUM CHLORIDE 0.9% 10ML VIAL ONE (13:00)
[2018-08-17 13:47] VITALS: BP 151/87
[2018-08-17] MEDS ORDERED: EPINEPHRINE 0.1MG/ML (1:10,000) 10ML SYR ONE (15:39)
== END 2018-08-17 14:40 | disposition home or self-care (01) | DRG 241 ==
LOC: ER 05:30 → 6WST 11:07 → ENRESERV 11:49
PROVIDERS: ADMIT Family Medicine; ATTEND Family Medicine
PROC: 30233N1 Transfusion of Nonautologous Red Blood Cells into Peripheral Vein, Percutaneous Approach (ICD-10-PCS; principal; 2018-08-13)
PROC: 5A1D70Z Performance of Urinary Filtration, Intermittent, Less than 6 Hours Per Day (ICD-10-PCS; 2018-08-13)
PROC: 0DBM8ZZ Excision of Descending Colon, Via Natural or Artificial Opening Endoscopic (ICD-10-PCS; 2018-08-16)
PROC: 0DBL8ZZ Excision of Transverse Colon, Via Natural or Artificial Opening Endoscopic (ICD-10-PCS; 2018-08-16)
PROC: 0DBN8ZZ Excision of Sigmoid Colon, Via Natural or Artificial Opening Endoscopic (ICD-10-PCS; 2018-08-16)
PROC: 0DB98ZX Excision of Duodenum, Via Natural or Artificial Opening Endoscopic, Diagnostic (ICD-10-PCS; 2018-08-16)
PROC: 0DB78ZX Excision of Stomach, Pylorus, Via Natural or Artificial Opening Endoscopic, Diagnostic (ICD-10-PCS; 2018-08-16)
PROC: 0DB68ZX Excision of Stomach, Via Natural or Artificial Opening Endoscopic, Diagnostic (ICD-10-PCS; 2018-08-16)
DX: K29.71 Gastritis, unspecified, with bleeding (principal); I13.2 Hypertensive heart and chronic kidney disease with heart failure and with stage 5 chronic kidney disease, or end stage renal disease; E11.40 Type 2 diabetes mellitus with diabetic neuropathy, unspecified; E11.21 Type 2 diabetes mellitus with diabetic nephropathy; E46 Unspecified protein-calorie malnutrition; E11.22 Type 2 diabetes mellitus with diabetic chronic kidney disease; D62 Acute posthemorrhagic anemia; E66.01 Morbid (severe) obesity due to excess calories; I43 Cardiomyopathy in diseases classified elsewhere; N18.6 End stage renal disease; K25.4 Chronic or unspecified gastric ulcer with hemorrhage; I50.42 Chronic combined systolic (congestive) and diastolic (congestive) heart failure; D12.3 Benign neoplasm of transverse colon; D12.5 Benign neoplasm of sigmoid colon; D12.4 Benign neoplasm of descending colon; F17.200 Nicotine dependence, unspecified, uncomplicated; I87.8 Other specified disorders of veins; N25.81 Secondary hyperparathyroidism of renal origin; E78.5 Hyperlipidemia, unspecified; E87.6 Hypokalemia; I89.0 Lymphedema, not elsewhere classified; Z68.32 Body mass index [BMI] 32.0-32.9, adult; Z96.659 Presence of unspecified artificial knee joint; Z87.441 Personal history of nephrotic syndrome; Z99.2 Dependence on renal dialysis; Z82.49 Family history of ischemic heart disease and other diseases of the circulatory system; Z91.018 Allergy to other foods; Z79.899 Other long term (current) drug therapy; Z79.84 Long term (current) use of oral hypoglycemic drugs; Z79.82 Long term (current) use of aspirin
CPT/HCPCS: 36415; 36430; 71045; 76700; 78278; 80048; 80076; 82248; 82270; 82607; 82728; 82746; 82962; 83540; 83550; 83735; 84100; 84484; 85014; 85018; 85044; 85049; 85384; 86850; 86900; 86920; 88305; 88313; 93005; 96374; 99152; 99153; 99285; A9560; J0360; J0885; J1200; J1815; J2250; J2405; J2765; J3010; J3490; J7030; J7040; J7050; P9016; G0500

== ENCOUNTER 2019-08-17 11:42 | Emergency (ER) | payer MEDICAID ==
[~2019-08-17] VITALS: Ht 193 cm; Wt 119.6 kg
[~2019-08-17 11:42] MED LIST changes: +PROT40 MT
[2019-08-17] MEDS ORDERED: MORPHINE SULFATE 10 MG/ML CPJ IM ONE (13:15)
[2019-08-17 15:55] VITALS: BP 210/111
== END 2019-08-17 15:59 | disposition home or self-care (01) ==
LOC: ER 11:42
DX: M25.551 Pain in right hip (principal); E11.22 Type 2 diabetes mellitus with diabetic chronic kidney disease; N18.6 End stage renal disease; R03.0 Elevated blood-pressure reading, without diagnosis of hypertension; Z99.2 Dependence on renal dialysis; Z79.4 Long term (current) use of insulin; Z79.84 Long term (current) use of oral hypoglycemic drugs
CPT/HCPCS: 73502; 96372; 99283; J2270

== ENCOUNTER 2020-07-26 10:49 | Emergency (ER) | payer MEDICAID ==
[~2020-07-26] VITALS: Ht 193 cm; Wt 117.0 kg
[2020-07-26 13:03] VITALS: BP 153/81
== END 2020-07-26 13:30 | disposition home or self-care (01) ==
LOC: ER 10:49
DX: S89.82XA Other specified injuries of left lower leg, initial encounter (principal); W01.0XXA Fall on same level from slipping, tripping and stumbling without subsequent striking against object, initial encounter; Y93.01 Activity, walking, marching and hiking; I11.0 Hypertensive heart disease with heart failure; Y92.89 Other specified places as the place of occurrence of the external cause; E11.9 Type 2 diabetes mellitus without complications; I50.9 Heart failure, unspecified; Z79.899 Other long term (current) drug therapy; Z79.4 Long term (current) use of insulin
CPT/HCPCS: 73562; 99283; L1830; Z7610

== ENCOUNTER 2020-10-19 07:33 | Inpatient (IN) | payer MEDICAID ==
[~2020-10-19] VITALS: Ht 193 cm; Wt 110.0 kg
[2020-10-19] VITALS (7 sets, daily range): BP systolic 129–159; BP diastolic 56–77
[~2020-10-19 07:33] MED LIST changes: -LISI-604 PO; +LISI20TA31 PO
[2020-10-19 08:52] LABS: HEMATOCRIT. 23.9 % (42.0-52.0); HEMOGLOBIN. 7.8 g/dL (14.0-18.0); MEAN CORPUSCULAR HEMOGLOBIN 29.8 pg (28.0-32.0); MEAN CORPUSCULAR VOLUME 90.7 fL (80.0-94.0); MEAN PLATELET VOLUME 6.7 fl (7.4-10.4); PLATELET 519 x1000/uL (130-400); RED BLOOD CELL COUNT 2.63 mill/uL (4.7-6.1); RED CELL DISTRIBUTION WIDTH 14.7 % (11.6-14.6)
[2020-10-19 09:00] LABS: CHLORIDE 99 mEq/L (98-107)
[2020-10-19 09:03] LABS: INR 1.2; PARTIAL THROMBOPLASTIN TIME 39.6 sec (23.4-31.0); PROTHROMBIN TIME 12.4 sec (9.6-11.0)
[2020-10-19 09:04] LABS: ETHANOL BLOOD < 10 mg/dL
[2020-10-19 09:07] LABS: LDL CHOLESTEROL 77 mg/dL (5-100)
[2020-10-19] MEDS ORDERED: IOHEXOL-350 100 ML BOTTLE ONE (09:47)
[2020-10-19 12:23] LABS: PLATELET ESTIMATE INCREASED
[2020-10-19] MEDS ORDERED: IPRATROPIUM/ALBUTEROL 0.5-3(2.5)MG/3ML NEB HHN PRN (13:45)
[2020-10-19] MEDS ORDERED: DOCUSATE SODIUM 100MG CAPSULE PO PRN (13:45)
[2020-10-19] MEDS ORDERED: HYDROCODONE/ACETAMINOPHEN 5/325MG TABLET PO PRN (13:45)
[2020-10-19] MEDS ORDERED: ONDANSETRON HCL 4MG/2ML INJ IV PRN (13:45)
[2020-10-19] MEDS ORDERED: ACETAMINOPHEN 325MG TABLET PO PRN ×2 (13:45)
[2020-10-19] MEDS: MORPHINE SULFATE 2 MG/ML CPJ (NOT FOR IM USE) IV PRN (15:01)
[2020-10-19] MEDS ORDERED: CEFTRIAXONE 2 G PREMIX 50 ML IV SCH (17:30)
[2020-10-19] MEDS: CEFTRIAXONE 2 G in DEXTROSE 5% WATER 50 ML IV SCH (17:36)
[2020-10-19] MEDS ORDERED: VANCOMYCIN 1500MG in DEXTROSE 5% WATER 250ML IV NR (18:00)
[2020-10-19] MEDS: MULTIVITAMINS,THER W-MINERALS TABLET PO SCH (18:27)
[2020-10-19] MEDS: ASPIRIN 81MG TABLET PO SCH (18:27)
[2020-10-19] MEDS: DILTIAZEM HCL 60MG TABLET PO SCH (18:27)
[2020-10-19] MEDS: PANTOPRAZOLE 40MG DR TABLET PO SCH (18:27)
[2020-10-19] MEDS: CARVEDILOL 3.125 MG TABLET PO SCH (20:40)
[2020-10-19] MEDS: ATORVASTATIN CALCIUM 40MG TABLET PO SCH (20:40)
[2020-10-19] MEDS: DIPHENHYDRAMINE 25MG CAPSULE PO PRN (20:40)
[2020-10-19] MEDS: HYDRALAZINE HCL 100MG TABLET PO SCH (20:41)
[2020-10-19] MEDS: INSULIN GLARGINE UD 100 UNITS/ML SYR SUBCUT SCH (21:02)
[2020-10-20] VITALS (15 sets, daily range): BP systolic 104–147; BP diastolic 51–70
[2020-10-20] MEDS: MORPHINE SULFATE 2 MG/ML CPJ (NOT FOR IM USE) IV PRN ×2 (04:59→20:31)
[2020-10-20] MEDS: DILTIAZEM HCL 60MG TABLET PO SCH ×5 (05:31→23:42)
[2020-10-20 06:54] LABS: HEMATOCRIT. 23.2 % (42.0-52.0); HEMOGLOBIN. 7.6 g/dL (14.0-18.0); MEAN CORPUSCULAR HEMOGLOBIN 30.2 pg (28.0-32.0); MEAN CORPUSCULAR VOLUME 92.6 fL (80.0-94.0); MEAN PLATELET VOLUME 6.7 fl (7.4-10.4); PLATELET 510 x1000/uL (130-400); RED BLOOD CELL COUNT 2.51 mill/uL (4.7-6.1)
[2020-10-20 07:16] LABS: FOLIC ACID (FOLATE) SERUM 7.7 ng/mL (>5.38)
[2020-10-20] MEDS: CARVEDILOL 3.125 MG TABLET PO SCH ×2 (08:39→20:31)
[2020-10-20] MEDS: ASPIRIN 81MG TABLET PO SCH (08:39)
[2020-10-20] MEDS: HYDRALAZINE HCL 100MG TABLET PO SCH ×2 (08:39→20:31)
[2020-10-20] MEDS: PANTOPRAZOLE 40MG DR TABLET PO SCH (08:49)
[2020-10-20] MEDS: MULTIVITAMINS,THER W-MINERALS TABLET PO SCH (08:49)
[2020-10-20] MEDS ORDERED: DIPHENHYDRAMINE 50MG/ML VIAL IV SCH (10:00)
[2020-10-20] MEDS: SEVELAMER CARBONATE 800 MG TABLET PO SCH ×2 (12:15→17:34)
[2020-10-20 13:55] LABS: PLATELET ESTIMATE INCREASED
[2020-10-20] MEDS: DIPHENHYDRAMINE 25MG CAPSULE PO PRN (14:47)
[2020-10-20] MEDS: CEFTRIAXONE 2 G in DEXTROSE 5% WATER 50 ML IV SCH (17:34)
[2020-10-20] MEDS: ATORVASTATIN CALCIUM 40MG TABLET PO SCH (20:31)
[2020-10-20] MEDS: EPOETIN ALFA-EPBX 4,000 UNIT/ML VIAL SUBCUT SCH (20:46)
[2020-10-20] MEDS: INSULIN GLARGINE UD 100 UNITS/ML SYR SUBCUT SCH (21:44)
[2020-10-20] MEDS: LORAZEPAM 0.5MG TABLET PO PRN (23:43)
[2020-10-21] VITALS (13 sets, daily range): BP systolic 130–154; BP diastolic 56–86
[2020-10-21] MEDS: DILTIAZEM HCL 60MG TABLET PO SCH ×4 (05:06→23:04)
[2020-10-21 06:11] LABS: HEMATOCRIT. 22.8 % (42.0-52.0); HEMOGLOBIN. 7.5 g/dL (14.0-18.0); MEAN CORPUSCULAR VOLUME 91.4 fL (80.0-94.0); MEAN PLATELET VOLUME 6.6 fl (7.4-10.4); PLATELET 532 x1000/uL (130-400); RED BLOOD CELL COUNT 2.49 mill/uL (4.7-6.1)
[2020-10-21] MEDS: ASPIRIN 81MG TABLET PO SCH (09:02)
[2020-10-21] MEDS: LORAZEPAM 0.5MG TABLET PO PRN ×2 (09:02→23:04)
[2020-10-21] MEDS: PANTOPRAZOLE 40MG DR TABLET PO SCH (09:02)
[2020-10-21] MEDS: MULTIVITAMINS,THER W-MINERALS TABLET PO SCH (09:02)
[2020-10-21] MEDS: SEVELAMER CARBONATE 800 MG TABLET PO SCH ×3 (09:02→17:55)
[2020-10-21] MEDS: CARVEDILOL 3.125 MG TABLET PO SCH ×2 (09:03→20:27)
[2020-10-21] MEDS: HYDRALAZINE HCL 100MG TABLET PO SCH ×2 (09:04→20:27)
[2020-10-21 13:20] LABS: PLATELET ESTIMATE INCREASED
[2020-10-21] MEDS: CEFTRIAXONE 2 G in DEXTROSE 5% WATER 50 ML IV SCH (17:56)
[2020-10-21] MEDS: DIPHENHYDRAMINE 25MG CAPSULE PO PRN (18:21)
[2020-10-21] MEDS: ATORVASTATIN CALCIUM 40MG TABLET PO SCH (20:27)
[2020-10-21] MEDS: MORPHINE SULFATE 2 MG/ML CPJ (NOT FOR IM USE) IV PRN (20:28)
[2020-10-21] MEDS: INSULIN GLARGINE UD 100 UNITS/ML SYR SUBCUT SCH (21:30)
[2020-10-22] VITALS (15 sets, daily range): BP systolic 141–178; BP diastolic 64–84
[2020-10-22] MEDS: DILTIAZEM HCL 60MG TABLET PO SCH ×3 (05:07→17:59)
[2020-10-22] MEDS: DIPHENHYDRAMINE 25MG CAPSULE PO PRN ×2 (05:43→08:40)
[2020-10-22 06:21] LABS: HEMATOCRIT. 23.6 % (42.0-52.0); HEMOGLOBIN. 7.7 g/dL (14.0-18.0); MEAN CORPUSCULAR VOLUME 91.1 fL (80.0-94.0); MEAN PLATELET VOLUME 6.7 fl (7.4-10.4); PLATELET 551 x1000/uL (130-400); RED BLOOD CELL COUNT 2.58 mill/uL (4.7-6.1); RED CELL DISTRIBUTION WIDTH 14.9 % (11.6-14.6)
[2020-10-22] MEDS: SEVELAMER CARBONATE 800 MG TABLET PO SCH ×3 (08:04→17:57)
[2020-10-22 09:35] LABS: PLATELET ESTIMATE INCREASED
[2020-10-22] MEDS ORDERED: DIPHENHYDRAMINE 50MG CAPSULE PO PRN (09:45)
[2020-10-22] MEDS: ASPIRIN 81MG TABLET PO SCH (11:36)
[2020-10-22] MEDS: HYDRALAZINE HCL 100MG TABLET PO SCH ×2 (11:37→20:51)
[2020-10-22] MEDS: PANTOPRAZOLE 40MG DR TABLET PO SCH (11:38)
[2020-10-22] MEDS: MULTIVITAMINS,THER W-MINERALS TABLET PO SCH (11:38)
[2020-10-22] MEDS: CARVEDILOL 3.125 MG TABLET PO SCH ×2 (11:38→20:55)
[2020-10-22] MEDS: CEFTRIAXONE 2 G in DEXTROSE 5% WATER 50 ML IV SCH (17:57)
[2020-10-22] MEDS: DIPHENHYDRAMINE 50MG/ML VIAL IV PRN (17:59)
[2020-10-22] MEDS: ATORVASTATIN CALCIUM 40MG TABLET PO SCH (20:51)
[2020-10-22] MEDS: MORPHINE SULFATE 2 MG/ML CPJ (NOT FOR IM USE) IV PRN (20:52)
[2020-10-22] MEDS: INSULIN GLARGINE UD 100 UNITS/ML SYR SUBCUT SCH (22:21)
[2020-10-23] VITALS (13 sets, daily range): BP systolic 157–183; BP diastolic 69–122
[2020-10-23] MEDS: DILTIAZEM HCL 60MG TABLET PO SCH ×4 (00:23→17:56)
[2020-10-23] MEDS: DIPHENHYDRAMINE 50MG/ML VIAL IV PRN ×4 (00:23→22:11)
[2020-10-23] MEDS: LORAZEPAM 0.5MG TABLET PO PRN ×2 (00:34→13:15)
[2020-10-23 01:59] LABS: CLARITY URINE TURBID (CLEAR); COLOR URINE ORANGE (YELLOW); KETONES URINE NEGATIVE (NEGATIVE); LEUKOCYTE ESTERASE URINE 1+ (NEGATIVE); NITRITE URINE POSITIVE (NEGATIVE); OCCULT BLOOD URINE 2+ (NEGATIVE); PROTEIN URINE 2+ (NEGATIVE); SPECIFIC GRAVITY URINE 1.018 (1.005-1.030); UROBILINOGEN URINE 0.2 E.U./dL (0.2-1.0)
[2020-10-23 06:35] LABS: BASOPHILS % 1.1 % (0.0-2.0); EOSINOPHILS % 3.4 % (0.0-5.0); HEMOGLOBIN. 7.9 g/dL (14.0-18.0); LYMPHOCYTES % 15.6 % (20.0-50.0); MEAN CORPUSCULAR HEMOGLOBIN 29.6 pg (28.0-32.0); MEAN CORPUSCULAR VOLUME 90.6 fL (80.0-94.0); MEAN PLATELET VOLUME 6.8 fl (7.4-10.4); MONOCYTES % 14.4 % (2.0-8.0); NEUTROPHILS % 65.5 % (40.0-76.0); PLATELET 543 x1000/uL (130-400); RED BLOOD CELL COUNT 2.65 mill/uL (4.7-6.1); RED CELL DISTRIBUTION WIDTH 14.8 % (11.6-14.6)
[2020-10-23] MEDS: SEVELAMER CARBONATE 800 MG TABLET PO SCH ×3 (08:00→16:28)
[2020-10-23] MEDS: MULTIVITAMINS,THER W-MINERALS TABLET PO SCH (09:00)
[2020-10-23] MEDS: CARVEDILOL 3.125 MG TABLET PO SCH ×2 (09:00→22:07)
[2020-10-23] MEDS: HYDRALAZINE HCL 100MG TABLET PO SCH ×2 (09:00→22:12)
[2020-10-23] MEDS: ASPIRIN 81MG TABLET PO SCH (09:00)
[2020-10-23] MEDS: PANTOPRAZOLE 40MG DR TABLET PO SCH (12:54)
[2020-10-23] MEDS: CLONIDINE 0.1MG TABLET PO PRN (16:31)
[2020-10-23] MEDS: CEFTRIAXONE 2 G in DEXTROSE 5% WATER 50 ML IV SCH (16:38)
[2020-10-23] MEDS: ATORVASTATIN CALCIUM 40MG TABLET PO SCH (22:07)
[2020-10-23] MEDS: EPOETIN ALFA-EPBX 4,000 UNIT/ML VIAL SUBCUT SCH (22:08)
[2020-10-23] MEDS: INSULIN GLARGINE UD 100 UNITS/ML SYR SUBCUT SCH (22:08)
[2020-10-23 23:56] LABS: CLARITY URINE TURBID (CLEAR); COLOR URINE RED (YELLOW); KETONES URINE 2+ (NEGATIVE); LEUKOCYTE ESTERASE URINE 3+ (NEGATIVE); NITRITE URINE POSITIVE (NEGATIVE); OCCULT BLOOD URINE 3+ (NEGATIVE); PROTEIN URINE 3+ (NEGATIVE); SPECIFIC GRAVITY URINE 1.014 (1.005-1.030)
[2020-10-24] VITALS (11 sets, daily range): BP systolic 136–188; BP diastolic 60–84
[2020-10-24] MEDS: MORPHINE SULFATE 2 MG/ML CPJ (NOT FOR IM USE) IV PRN (00:08)
[2020-10-24] MEDS: DILTIAZEM HCL 60MG TABLET PO SCH ×5 (00:08→23:40)
[2020-10-24] MEDS: SEVELAMER CARBONATE 800 MG TABLET PO SCH ×3 (06:23→17:20)
[2020-10-24] MEDS ORDERED: IODIXANOL 320MG/ML 100 ML BOTTLE IV ONE (06:34)
[2020-10-24] MEDS ORDERED: LIDOCAINE HCL 1% 20ML VIAL (Pyxis) INJ ONE (06:34)
[2020-10-24] MEDS ORDERED: MIDAZOLAM HCL 2 MG/2 ML VIAL ONE (06:42)
[2020-10-24] MEDS ORDERED: FENTANYL CITRATE/PF 50MCG/ML 2ML VIAL ONE (06:43)
[2020-10-24] MEDS ORDERED: NITROGLYCERIN 50MCG/ML 10ML VIAL (CATH LAB) IV ONE (07:38)
[2020-10-24] MEDS ORDERED: NICARDIPINE 100MCG/ML 10ML VIAL (CATH LAB) IV ONE (07:38)
[2020-10-24] MEDS ORDERED: HEPARIN SODIUM 1,000 UNIT/1ML VIAL IV ONE (07:38)
[2020-10-24] MEDS ORDERED: ATROPINE SULFATE 1MG/10ML SYR IV PRN (08:30)
[2020-10-24] MEDS ORDERED: ACETAMINOPHEN 325MG TABLET PO PRN (08:30)
[2020-10-24] MEDS: MULTIVITAMINS,THER W-MINERALS TABLET PO SCH (09:00)
[2020-10-24] MEDS: CARVEDILOL 3.125 MG TABLET PO SCH ×2 (09:00→20:05)
[2020-10-24] MEDS: ASPIRIN 81MG TABLET PO SCH (09:00)
[2020-10-24] MEDS: HYDRALAZINE HCL 100MG TABLET PO SCH ×2 (09:00→20:05)
[2020-10-24 10:35] LABS: BASOPHILS % 1.2 % (0.0-2.0); EOSINOPHILS % 3.2 % (0.0-5.0); HEMATOCRIT. 22.4 % (42.0-52.0); HEMOGLOBIN. 7.5 g/dL (14.0-18.0); LYMPHOCYTES % 17.9 % (20.0-50.0); MEAN CORPUSCULAR HEMOGLOBIN 30.7 pg (28.0-32.0); MEAN CORPUSCULAR VOLUME 91.5 fL (80.0-94.0); MEAN PLATELET VOLUME 6.4 fl (7.4-10.4); MONOCYTES % 13.7 % (2.0-8.0); PLATELET 457 x1000/uL (130-400); RED BLOOD CELL COUNT 2.45 mill/uL (4.7-6.1); RED CELL DISTRIBUTION WIDTH 15.1 % (11.6-14.6)
[2020-10-24 11:19] LABS: PHOSPHORUS 5.9 mg/dL (2.5-4.9)
[2020-10-24] MEDS: DIPHENHYDRAMINE 50MG/ML VIAL IV PRN ×2 (13:17→20:05)
[2020-10-24] MEDS: CEFTRIAXONE 2 G in DEXTROSE 5% WATER 50 ML IV SCH (18:34)
[2020-10-24] MEDS: ATORVASTATIN CALCIUM 40MG TABLET PO SCH (20:05)
[2020-10-24] MEDS: CLONIDINE 0.1MG TABLET PO PRN (21:35)
[2020-10-24] MEDS: INSULIN GLARGINE UD 100 UNITS/ML SYR SUBCUT SCH (21:36)
[2020-10-25] VITALS (11 sets, daily range): BP systolic 147–166; BP diastolic 62–81
[2020-10-25] MEDS: DIPHENHYDRAMINE 50MG/ML VIAL IV PRN ×3 (02:13→20:56)
[2020-10-25] MEDS: HYDROCODONE/ACETAMINOPHEN 5/325MG TABLET PO PRN (02:14)
[2020-10-25] MEDS: DILTIAZEM HCL 60MG TABLET PO SCH ×3 (05:49→17:54)
[2020-10-25 06:42] LABS: HEMATOCRIT. 23.2 % (42.0-52.0); HEMOGLOBIN. 7.8 g/dL (14.0-18.0); MEAN CORPUSCULAR HEMOGLOBIN 30.6 pg (28.0-32.0); MEAN PLATELET VOLUME 6.7 fl (7.4-10.4); PLATELET 493 x1000/uL (130-400); RED BLOOD CELL COUNT 2.55 mill/uL (4.7-6.1); RED CELL DISTRIBUTION WIDTH 14.9 % (11.6-14.6)
[2020-10-25] MEDS ORDERED: FAMOTIDINE 20MG TABLET PO SCH (09:00)
[2020-10-25] MEDS: HYDRALAZINE HCL 100MG TABLET PO SCH ×2 (09:38→20:56)
[2020-10-25] MEDS: ASPIRIN 81MG TABLET PO SCH (09:38)
[2020-10-25] MEDS: MULTIVITAMINS,THER W-MINERALS TABLET PO SCH (09:39)
[2020-10-25] MEDS: CARVEDILOL 3.125 MG TABLET PO SCH ×2 (09:39→20:56)
[2020-10-25] MEDS: SEVELAMER CARBONATE 800 MG TABLET PO SCH ×3 (09:39→17:54)
[2020-10-25] MEDS ORDERED: VANCOMYCIN 500 MG PREMIX 100 ML IV NR (11:30)
[2020-10-25 16:55] LABS: PLATELET ESTIMATE SLIGHTLY INCREASED
[2020-10-25] MEDS: CEFTRIAXONE 2 G in DEXTROSE 5% WATER 50 ML IV SCH (17:54)
[2020-10-25] MEDS ORDERED: ACETAMINOPHEN 325MG TABLET PO PRN (18:00)
[2020-10-25] MEDS ORDERED: NITROGLYCERIN 0.4MG TABLET SL SL PRN (18:00)
[2020-10-25 20:47] LABS: INR 1.1; PROTHROMBIN TIME 11.5 sec (9.6-11.0)
[2020-10-25] MEDS: EPOETIN ALFA-EPBX 4,000 UNIT/ML VIAL SUBCUT SCH (20:55)
[2020-10-25] MEDS: SENNOSIDES/DOCUSATE SOD 8.6/50MG TABLET PO SCH (20:55)
[2020-10-25] MEDS: ATORVASTATIN CALCIUM 40MG TABLET PO SCH (20:56)
[2020-10-25] MEDS: INSULIN GLARGINE UD 100 UNITS/ML SYR SUBCUT SCH (21:10)
[2020-10-26] VITALS (20 sets, daily range): BP systolic 141–197; BP diastolic 65–87
[2020-10-26] MEDS: DILTIAZEM HCL 60MG TABLET PO SCH ×5 (00:01→23:45)
[2020-10-26] MEDS: CLONIDINE 0.1MG TABLET PO PRN ×2 (00:45→23:44)
[2020-10-26] MEDS: DIPHENHYDRAMINE 50MG/ML VIAL IV PRN ×3 (03:38→21:09)
[2020-10-26] MEDS: HYDRALAZINE 20MG/ML VIAL IV PRN ×2 (04:13→18:15)
[2020-10-26] MEDS: OMEPRAZOLE 20MG CAPSULE EXTENDED RELEASE PO SCH (06:12)
[2020-10-26 06:33] LABS: EOSINOPHILS % 2.2 % (0.0-5.0); HEMATOCRIT. 24.4 % (42.0-52.0); HEMOGLOBIN. 7.9 g/dL (14.0-18.0); MEAN CORPUSCULAR HEMOGLOBIN 29.4 pg (28.0-32.0); MEAN CORPUSCULAR VOLUME 90.5 fL (80.0-94.0); MEAN PLATELET VOLUME 6.6 fl (7.4-10.4); MONOCYTES % 14.7 % (2.0-8.0); NEUTROPHILS % 65.1 % (40.0-76.0); PLATELET 504 x1000/uL (130-400); RED CELL DISTRIBUTION WIDTH 14.9 % (11.6-14.6)
[2020-10-26 06:40] LABS: PHOSPHORUS 5.4 mg/dL (2.5-4.9)
[2020-10-26] MEDS: MULTIVITAMINS,THER W-MINERALS TABLET PO SCH (09:00)
[2020-10-26] MEDS: ASPIRIN 81MG TABLET PO SCH (09:39)
[2020-10-26] MEDS: SEVELAMER CARBONATE 800 MG TABLET PO SCH ×3 (09:39→17:55)
[2020-10-26] MEDS: DOCUSATE SODIUM 100MG CAPSULE PO SCH ×2 (09:39→17:00)
[2020-10-26] MEDS: CARVEDILOL 3.125 MG TABLET PO SCH ×2 (09:40→21:09)
[2020-10-26] MEDS: HYDRALAZINE HCL 100MG TABLET PO SCH ×2 (10:25→21:08)
[2020-10-26] MEDS ORDERED: EPOETIN ALFA-EPBX 10,000 UNIT/ML VIAL SUBCUT NR (12:00)
[2020-10-26] MEDS: CEFTRIAXONE 2 G in DEXTROSE 5% WATER 50 ML IV SCH (17:54)
[2020-10-26] MEDS: SENNOSIDES/DOCUSATE SOD 8.6/50MG TABLET PO SCH (21:08)
[2020-10-26] MEDS: ATORVASTATIN CALCIUM 40MG TABLET PO SCH (21:09)
[2020-10-26] MEDS: INSULIN GLARGINE UD 100 UNITS/ML SYR SUBCUT SCH (21:17)
[2020-10-26] MEDS: HYDROCODONE/ACETAMINOPHEN 5/325MG TABLET PO PRN (23:44)
[2020-10-27] VITALS (15 sets, daily range): BP systolic 129–187; BP diastolic 64–83
[2020-10-27] MEDS ORDERED: VANCOMYCIN 500 MG PREMIX 100 ML IV NR
[2020-10-27] MEDS: HYDRALAZINE 20MG/ML VIAL IV PRN (03:00)
[2020-10-27] MEDS: DIPHENHYDRAMINE 50MG/ML VIAL IV PRN ×4 (03:06→23:56)
[2020-10-27] MEDS: OMEPRAZOLE 20MG CAPSULE EXTENDED RELEASE PO SCH (06:40)
[2020-10-27] MEDS: DILTIAZEM HCL 60MG TABLET PO SCH ×4 (06:40→23:59)
[2020-10-27] MEDS: CLONIDINE 0.1MG TABLET PO PRN (06:40)
[2020-10-27] MEDS: ASPIRIN 81MG TABLET PO SCH (08:16)
[2020-10-27] MEDS: SEVELAMER CARBONATE 800 MG TABLET PO SCH ×3 (08:16→17:28)
[2020-10-27] MEDS: CARVEDILOL 3.125 MG TABLET PO SCH ×2 (08:17→21:09)
[2020-10-27] MEDS: HYDRALAZINE HCL 100MG TABLET PO SCH ×3 (08:17→22:21)
[2020-10-27] MEDS: MULTIVITAMINS,THER W-MINERALS TABLET PO SCH (08:17)
[2020-10-27] MEDS: DOCUSATE SODIUM 100MG CAPSULE PO SCH ×2 (08:18→17:29)
[2020-10-27 08:24] LABS: BASOPHILS % 0.9 % (0.0-2.0); EOSINOPHILS % 1.4 % (0.0-5.0); HEMATOCRIT. 27.9 % (42.0-52.0); HEMOGLOBIN. 9.2 g/dL (14.0-18.0); LYMPHOCYTES % 13.5 % (20.0-50.0); MEAN CORPUSCULAR HEMOGLOBIN 29.5 pg (28.0-32.0); MEAN CORPUSCULAR VOLUME 89.6 fL (80.0-94.0); MEAN PLATELET VOLUME 6.7 fl (7.4-10.4); MONOCYTES % 14.8 % (2.0-8.0); NEUTROPHILS % 69.4 % (40.0-76.0); PLATELET 457 x1000/uL (130-400); RED BLOOD CELL COUNT 3.11 mill/uL (4.7-6.1)
[2020-10-27] MEDS ORDERED: LORAZEPAM 2MG/ML CPJ IV NR (10:00)
[2020-10-27] MEDS ORDERED: CLONIDINE 0.1MG TABLET PO NR (10:00)
[2020-10-27] MEDS: CEFTRIAXONE 2 G in DEXTROSE 5% WATER 50 ML IV SCH (17:27)
[2020-10-27] MEDS: ATORVASTATIN CALCIUM 40MG TABLET PO SCH (21:09)
[2020-10-27] MEDS: CLONIDINE 0.1MG TABLET PO SCH (21:09)
[2020-10-27] MEDS: SENNOSIDES/DOCUSATE SOD 8.6/50MG TABLET PO SCH (21:09)
[2020-10-27] MEDS: ZOLPIDEM TARTRATE 5MG TABLET PO PRN (21:35)
[2020-10-27] MEDS: INSULIN GLARGINE UD 100 UNITS/ML SYR SUBCUT SCH (22:00)
[2020-10-28] VITALS (14 sets, daily range): BP systolic 131–177; BP diastolic 54–78
[2020-10-28] MEDS: HYDRALAZINE 20MG/ML VIAL IV PRN (02:20)
[2020-10-28] MEDS: HYDRALAZINE HCL 100MG TABLET PO SCH ×3 (05:57→21:03)
[2020-10-28] MEDS: OMEPRAZOLE 20MG CAPSULE EXTENDED RELEASE PO SCH (05:57)
[2020-10-28] MEDS: DIPHENHYDRAMINE 50MG/ML VIAL IV PRN ×3 (05:57→20:45)
[2020-10-28] MEDS: DILTIAZEM HCL 60MG TABLET PO SCH ×4 (05:57→23:10)
[2020-10-28 06:06] LABS: HEMATOCRIT. 28.1 % (42.0-52.0); HEMOGLOBIN. 9.2 g/dL (14.0-18.0); MEAN CORPUSCULAR HEMOGLOBIN 29.3 pg (28.0-32.0); MEAN CORPUSCULAR VOLUME 89.3 fL (80.0-94.0); MEAN PLATELET VOLUME 6.9 fl (7.4-10.4); PLATELET 448 x1000/uL (130-400); RED BLOOD CELL COUNT 3.14 mill/uL (4.7-6.1); RED CELL DISTRIBUTION WIDTH 14.8 % (11.6-14.6)
[2020-10-28] MEDS: SEVELAMER CARBONATE 800 MG TABLET PO SCH ×3 (07:44→17:20)
[2020-10-28] MEDS: DOCUSATE SODIUM 100MG CAPSULE PO SCH (07:54)
[2020-10-28] MEDS: MULTIVITAMINS,THER W-MINERALS TABLET PO SCH (07:54)
[2020-10-28] MEDS: ASPIRIN 81MG TABLET PO SCH (07:54)
[2020-10-28] MEDS: CARVEDILOL 3.125 MG TABLET PO SCH ×2 (07:54→20:45)
[2020-10-28] MEDS: CLONIDINE 0.1MG TABLET PO SCH ×2 (07:55→20:46)
[2020-10-28] MEDS: ALPRAZOLAM 0.25 MG TABLET PO PRN (08:06)
[2020-10-28 15:15] LABS: PLATELET ESTIMATE SLIGHTLY INCREASED
[2020-10-28] MEDS: CEFTRIAXONE 2 G in DEXTROSE 5% WATER 50 ML IV SCH (17:20)
[2020-10-28] MEDS: ALLOPURINOL 300 MG TABLET PO SCH (20:45)
[2020-10-28] MEDS: SENNOSIDES/DOCUSATE SOD 8.6/50MG TABLET PO SCH (20:45)
[2020-10-28] MEDS: ATORVASTATIN CALCIUM 40MG TABLET PO SCH (20:45)
[2020-10-28] MEDS ORDERED: ASCORBIC ACID 500 MG TABLET PO SCH (21:00)
[2020-10-28] MEDS ORDERED: CHLORHEXIDINE GLUCONATE 4% EXTERNAL USE TOP SCH (21:00)
[2020-10-28] MEDS ORDERED: DIPHENHYDRAMINE 25MG CAPSULE PO PRN (21:00)
[2020-10-28] MEDS ORDERED: DOCUSATE SODIUM 100MG CAPSULE PO SCH (21:00)
[2020-10-28] MEDS: INSULIN GLARGINE UD 100 UNITS/ML SYR SUBCUT SCH (22:00)
[2020-10-28] MEDS: LORAZEPAM 2MG/ML CPJ IV PRN (23:39)
[2020-10-29] VITALS (18 sets, daily range): BP systolic 83–168; BP diastolic 35–78
[2020-10-29] MEDS ORDERED: BLOOD SUGAR DIAGNOSTIC STRIP TEST NR (04:00)
[2020-10-29] MEDS: ALPRAZOLAM 0.25 MG TABLET PO PRN ×2 (04:00→08:41)
[2020-10-29] MEDS ORDERED: SKIN ADHESIVE 0.7 GM EA TOP ONE (05:24)
[2020-10-29] MEDS ORDERED: THROMBIN (BOVINE) 5000 UNITS/VIAL TOP ONE (05:25)
[2020-10-29] MEDS ORDERED: POLYMYXIN B SULFATE 500000 UNITS/VIAL ONE (05:25)
[2020-10-29] MEDS: CHLORHEXIDINE GLUCONATE 4% EXTERNAL USE TOP SCH ×2 (05:26→09:15)
[2020-10-29] MEDS: HYDRALAZINE HCL 100MG TABLET PO SCH ×3 (05:26→22:00)
[2020-10-29] MEDS: ALLOPURINOL 300 MG TABLET PO SCH (05:27)
[2020-10-29] MEDS: DILTIAZEM HCL 60MG TABLET PO SCH ×3 (05:27→20:00)
[2020-10-29] MEDS ORDERED: ACETAMINOPHEN 500MG TABLET ONE (05:39)
[2020-10-29] MEDS ORDERED: HEPARIN 1000 UNITS/ML 10ML ONE ×2 (05:51→17:28)
[2020-10-29] MEDS ORDERED: VANCOMYCIN 1G PREMIX 200ML IV SCH (06:00)
[2020-10-29] MEDS ORDERED: NOREPINEPHRINE 8 MG in DEXT 5% WATER 242 ML IV SCH (06:00)
[2020-10-29] MEDS ORDERED: DEL NIDO ELECTROLYTE-S(PH 7.4) 1,000 ML IV SCH ×3 (06:00→19:15)
[2020-10-29] MEDS ORDERED: NICARDIPINE 50 MG in NS 230 ML IV SCH (06:00)
[2020-10-29] MEDS ORDERED: EPINEPHRINE 5 MG in DEXT 5% WATER 245 ML IV SCH (06:00)
[2020-10-29] MEDS ORDERED: VANCOMYCIN 1 G PREMIX 200 ML IV NR (06:00)
[2020-10-29] MEDS ORDERED: AMINOCAPROIC ACID 5,000 MG in SODIUM CHLORIDE 0.9% 230 ML IV SCH (06:00)
[2020-10-29] MEDS ORDERED: INSULIN REGULAR (DRIP) 100 UNITS in SODIUM CHLORIDE 0.9% 99 ML IV SCH ×2 (06:00→11:30)
[2020-10-29] MEDS: OMEPRAZOLE 20MG CAPSULE EXTENDED RELEASE PO SCH (06:06)
[2020-10-29] MEDS ORDERED: DOPAMINE 400MG/250ML PREMIX 250 ML IV ONE (06:12)
[2020-10-29] MEDS: DIPHENHYDRAMINE 50MG/ML VIAL IV PRN ×2 (06:35→12:26)
[2020-10-29 06:38] LABS: HEMATOCRIT. 30.4 % (42.0-52.0); HEMOGLOBIN. 10.1 g/dL (14.0-18.0); MEAN CORPUSCULAR HEMOGLOBIN 29.8 pg (28.0-32.0); MEAN CORPUSCULAR VOLUME 89.4 fL (80.0-94.0); MEAN PLATELET VOLUME 6.8 fl (7.4-10.4); PLATELET 449 x1000/uL (130-400); RED BLOOD CELL COUNT 3.39 mill/uL (4.7-6.1); RED CELL DISTRIBUTION WIDTH 15.5 % (11.6-14.6)
[2020-10-29] MEDS: SEVELAMER CARBONATE 800 MG TABLET PO SCH ×3 (07:20→21:00)
[2020-10-29] MEDS: ASPIRIN 81MG TABLET PO SCH (08:41)
[2020-10-29] MEDS: CARVEDILOL 3.125 MG TABLET PO SCH ×2 (08:41→21:00)
[2020-10-29] MEDS: MULTIVITAMINS,THER W-MINERALS TABLET PO SCH (08:42)
[2020-10-29] MEDS: CLONIDINE 0.1MG TABLET PO SCH ×2 (08:42→21:00)
[2020-10-29] MEDS ORDERED: KCL 10MEQ/50ML PREMIX 150 ML IV PRN (11:30)
[2020-10-29] MEDS ORDERED: KCL 10MEQ/50ML PREMIX 200 ML IV PRN (11:30)
[2020-10-29] MEDS ORDERED: KCL 10MEQ/50ML PREMIX 100 ML IV PRN (11:30)
[2020-10-29] MEDS ORDERED: DEXTROSE 50% WATER 50ML SYRINGE IV PRN ×2 (11:30)
[2020-10-29 14:03] LABS: PLATELET ESTIMATE INCREASED
[2020-10-29] MEDS ORDERED: ROCURONIUM BROMIDE 10MG/ML VIAL 5ML IV ONE ×2 (16:02→17:39)
[2020-10-29] MEDS ORDERED: HYDROMORPHONE HCL/PF 2MG/ML (OR) ONE (16:02)
[2020-10-29] MEDS ORDERED: DEXAMETHASONE 4MG/ML 1ML VIAL ONE (16:03)
[2020-10-29] MEDS ORDERED: AMINOCAPROIC ACID 250 MG/ML 20ML VIAL ONE (16:49)
[2020-10-29] MEDS ORDERED: PROPOFOL 200MG/20ML VIAL IV ONE (17:28)
[2020-10-29] MEDS ORDERED: VECURONIUM BROMIDE 10 MG/VIAL IV ONE (18:24)
[2020-10-29] MEDS: CEFTRIAXONE 2 G in DEXTROSE 5% WATER 50 ML IV SCH (20:00)
[2020-10-29] MEDS ORDERED: CALCIUM CHLORIDE 1GM/10ML SYR IV ONE (20:29)
[2020-10-29] MEDS ORDERED: PROTAMINE SULFATE 10MG/ML VIAL 25ML IV ONE (20:29)
[2020-10-29] MEDS: SENNOSIDES/DOCUSATE SOD 8.6/50MG TABLET PO SCH (21:00)
[2020-10-29] MEDS ORDERED: KETOROLAC 30MG/ML VIAL ONE (21:17)
[2020-10-29] MEDS ORDERED: NEOSTIGMINE METHYLSULFATE 1MG/ML 10 ML VIAL ONE (21:18)
[2020-10-29] MEDS ORDERED: MORPHINE SULFATE 2 MG/ML CPJ (NOT FOR IM USE) IV PRN (21:30)
[2020-10-29] MEDS ORDERED: KETOROLAC 30MG/ML VIAL IV PRN (21:30)
[2020-10-29] MEDS ORDERED: ACETAMINOPHEN 325MG TABLET PO PRN (21:30)
[2020-10-29] MEDS ORDERED: SODIUM CHLORIDE 0.9% 500 ML IV PRN (21:30)
[2020-10-29] MEDS ORDERED: MAGNESIUM 1 G PREMIX 100 ML IV PRN (21:30)
[2020-10-29] MEDS ORDERED: ALBUMIN HUMAN 25GM/100ML (25%) IV PRN (21:30)
[2020-10-29] MEDS ORDERED: MAGNESIUM SULFATE 3 GM in DEXT 5% WATER 100 ML IV PRN (21:30)
[2020-10-29] MEDS ORDERED: OXYCODONE HCL/ACETAMINOPHEN 5/325MG TABLET PO PRN (21:30)
[2020-10-29] MEDS ORDERED: NALOXONE HCL 0.4 MG/ML 1ML VIAL ONE (21:32)
[2020-10-29] MEDS: BACITRACIN 15GM TUBE TOP SCH (22:00)
[2020-10-29] MEDS: INSULIN GLARGINE UD 100 UNITS/ML SYR SUBCUT SCH (22:00)
[2020-10-29] MEDS: ATORVASTATIN CALCIUM 40MG TABLET PO SCH (22:00)
[2020-10-29 22:16] LABS: BG CARBOXYHEMOGLOBIN 0.9 % (0.5-1.5); BG DEOXYHEMOGLOBIN 4.7 % (0.0-5.0); BG HCO3 ACT 23.8 mmol/L (22.0-26.0); BG METHEMOGLOBIN 0.3 % (0.0-1.5); BG OXYGEN SATURATION 95.2 % (92.0-98.5); BG OXYHEMOGLOBIN 94.1 % (94.0-97.0); BG PCO2 39.8 mmHg (35.0-45.0); BG PH 7.394 (7.350-7.450); BG SAMPLE SITE ALINE; BG TOTAL HEMOGLOBIN 10.2 g/dL (12.0-18.0); BG VENT MODE ROOM AIR
[2020-10-29 22:20] LABS: HEMATOCRIT. 27.3 % (42.0-52.0); HEMOGLOBIN. 8.9 g/dL (14.0-18.0); MEAN CORPUSCULAR HEMOGLOBIN 29.6 pg (28.0-32.0); MEAN CORPUSCULAR VOLUME 90.3 fL (80.0-94.0); MEAN PLATELET VOLUME 6.8 fl (7.4-10.4); PLATELET 323 x1000/uL (130-400); RED BLOOD CELL COUNT 3.03 mill/uL (4.7-6.1); RED CELL DISTRIBUTION WIDTH 14.8 % (11.6-14.6)
[2020-10-29 22:31] LABS: INR 1.2; PARTIAL THROMBOPLASTIN TIME 45.6 sec (23.4-31.0); PROTHROMBIN TIME 12.8 sec (9.6-11.0)
[2020-10-29 22:33] LABS: PHOSPHORUS 4.5 mg/dL (2.5-4.9)
[2020-10-29] MEDS: DOPAMINE 400MG/250ML PREMIX 250 ML IV SCH (22:49)
[2020-10-29 22:54] LABS: PLATELET ESTIMATE NORMAL
[2020-10-29] MEDS ORDERED: MAGNESIUM 2 G PREMIX 50 ML IV PRN (23:00)
[2020-10-29] MEDS: BLOOD SUGAR DIAGNOSTIC STRIP TEST SCH (23:00)
[2020-10-29] MEDS ORDERED: CALCIUM CHLORIDE 3,000 MG in DEXT 5% WATER 250 ML IV PRN (23:00)
[2020-10-29] MEDS: AMIODARONE HCL 900 MG in DEXT 5% WATER 482 ML IV PRN (23:53)
[2020-10-29] MEDS: IPRATROPIUM/ALBUTEROL 0.5-3(2.5)MG/3ML NEB HHN SCH (23:58)
[2020-10-30] VITALS (107 sets, daily range): BP systolic 0–156; BP diastolic -16–85
[2020-10-30] MEDS ORDERED: AMIODARONE HCL 150 MG in DEXT 5% WATER 100 ML IV SCH
[2020-10-30] MEDS ORDERED: ALBUMIN HUMAN 25GM/100ML (25%) IV SCH
[2020-10-30] MEDS: DEXT 5%/0.45% NACL 1000ML 1,000 ML IV SCH ×2 (00:03→23:03)
[2020-10-30] MEDS: INSULIN REGULAR (DRIP) 100 UNITS in SODIUM CHLORIDE 0.9% 99 ML IV PRN ×2 (00:24→23:01)
[2020-10-30] MEDS: OXYCODONE HCL/ACETAMINOPHEN 5/325MG TABLET PO PRN ×2 (01:11→12:19)
[2020-10-30] MEDS: BLOOD SUGAR DIAGNOSTIC STRIP TEST SCH ×23 (01:24→23:03)
[2020-10-30] MEDS: MAGNESIUM HYDROXIDE 400MG/5ML 30ML UDC PO SCH ×7 (04:00→23:03)
[2020-10-30 04:21] LABS: HEMATOCRIT. 25.8 % (42.0-52.0); HEMOGLOBIN. 8.2 g/dL (14.0-18.0); MEAN CORPUSCULAR VOLUME 91.3 fL (80.0-94.0); MEAN PLATELET VOLUME 7.5 fl (7.4-10.4); PLATELET 320 x1000/uL (130-400); RED BLOOD CELL COUNT 2.83 mill/uL (4.7-6.1); RED CELL DISTRIBUTION WIDTH 14.8 % (11.6-14.6)
[2020-10-30] MEDS: IPRATROPIUM/ALBUTEROL 0.5-3(2.5)MG/3ML NEB HHN SCH ×5 (04:23→20:12)
[2020-10-30] MEDS: DILTIAZEM HCL 60MG TABLET PO SCH ×5 (06:00→23:15)
[2020-10-30] MEDS: HYDRALAZINE HCL 100MG TABLET PO SCH ×3 (06:00→21:40)
[2020-10-30] MEDS: ONDANSETRON HCL 4MG/2ML INJ IV PRN ×4 (06:35→23:15)
[2020-10-30 07:22] LABS: NUCLEATED RED BLOOD CELLS 1 /100 WBC; PLATELET ESTIMATE NORMAL
[2020-10-30] MEDS ORDERED: EPINEPHRINE 10 MG in SODIUM CHLORIDE 0.9% 240 ML IV PRN (08:00)
[2020-10-30] MEDS: DIPHENHYDRAMINE 50MG/ML VIAL IV PRN ×3 (08:38→20:38)
[2020-10-30] MEDS: MULTIVITAMINS,THER W-MINERALS TABLET PO SCH (08:39)
[2020-10-30] MEDS: DOCUSATE SODIUM 100MG CAPSULE PO SCH ×2 (08:39→17:33)
[2020-10-30] MEDS: ASPIRIN 81MG TABLET PO SCH (08:39)
[2020-10-30] MEDS: FAMOTIDINE 20MG/2ML VIAL IV SCH (08:39)
[2020-10-30] MEDS: SEVELAMER CARBONATE 800 MG TABLET PO SCH ×3 (08:39→17:34)
[2020-10-30] MEDS: BACITRACIN 15GM TUBE TOP SCH ×4 (08:41→20:40)
[2020-10-30] MEDS: CARVEDILOL 3.125 MG TABLET PO SCH ×2 (08:42→20:39)
[2020-10-30] MEDS: CLONIDINE 0.1MG TABLET PO SCH ×2 (08:42→21:40)
[2020-10-30] MEDS: OMEPRAZOLE 20MG CAPSULE EXTENDED RELEASE PO SCH (08:44)
[2020-10-30] MEDS: DOPAMINE 400MG/250ML PREMIX 250 ML IV SCH ×2 (09:11→20:40)
[2020-10-30 12:38] LABS: CHLORIDE 101 mEq/L (98-107)
[2020-10-30 12:44] LABS: PHOSPHORUS 4.2 mg/dL (2.5-4.9)
[2020-10-30 12:46] LABS: HEMATOCRIT. 29.7 % (42.0-52.0); HEMOGLOBIN. 10.1 g/dL (14.0-18.0); MEAN CORPUSCULAR HEMOGLOBIN 30.1 pg (28.0-32.0); MEAN CORPUSCULAR VOLUME 88.6 fL (80.0-94.0); MEAN PLATELET VOLUME 7.7 fl (7.4-10.4); PLATELET 267 x1000/uL (130-400); RED BLOOD CELL COUNT 3.35 mill/uL (4.7-6.1); RED CELL DISTRIBUTION WIDTH 15.5 % (11.6-14.6)
[2020-10-30 13:34] LABS: PLATELET ESTIMATE NORMAL
[2020-10-30] MEDS ORDERED: MANNITOL 20% (20GM/100ML) BAG 500ML PREMIX IV ONE (14:30)
[2020-10-30] MEDS ORDERED: ALBUMIN HUMAN 25GM/100ML (25%) IV ONE (14:30)
[2020-10-30] MEDS ORDERED: HEPARIN 10,000 UNITS/ML VIAL ONE (14:30)
[2020-10-30] MEDS ORDERED: PHENYLEPHRINE HCL 10 MG/ML 1ML (IV VIAL) IV ONE (14:30)
[2020-10-30] MEDS ORDERED: SODIUM BICARBONATE 8.4% 1 MEQ/ML 50ML SYR IV ONE (14:30)
[2020-10-30] MEDS ORDERED: HEPARIN 1000 UNITS/ML 10ML ONE (14:30)
[2020-10-30] MEDS: CEFTRIAXONE 2 G in DEXTROSE 5% WATER 50 ML IV SCH (15:30)
[2020-10-30] MEDS: LORAZEPAM 2MG/ML CPJ IV PRN (16:04)
[2020-10-30] MEDS: SENNOSIDES/DOCUSATE SOD 8.6/50MG TABLET PO SCH (20:39)
[2020-10-30] MEDS: ATORVASTATIN CALCIUM 40MG TABLET PO SCH (20:39)
[2020-10-30] MEDS: INSULIN GLARGINE UD 100 UNITS/ML SYR SUBCUT SCH (21:11)
[2020-10-30] MEDS: ZOLPIDEM TARTRATE 5MG TABLET PO PRN (21:39)
[2020-10-31] VITALS (97 sets, daily range): BP systolic 80–155; BP diastolic 41–79
[2020-10-31] MEDS: IPRATROPIUM/ALBUTEROL 0.5-3(2.5)MG/3ML NEB HHN SCH ×7 (00:09→23:43)
[2020-10-31] MEDS: AMIODARONE HCL 900 MG in DEXT 5% WATER 482 ML IV PRN (00:24)
[2020-10-31] MEDS: BLOOD SUGAR DIAGNOSTIC STRIP TEST SCH ×8 (00:25→10:52)
[2020-10-31] MEDS: LORAZEPAM 2MG/ML CPJ IV PRN ×3 (00:57→17:43)
[2020-10-31] MEDS: MAGNESIUM HYDROXIDE 400MG/5ML 30ML UDC PO SCH ×5 (03:49→21:18)
[2020-10-31] MEDS: DIPHENHYDRAMINE 50MG/ML VIAL IV PRN ×2 (04:28→14:44)
[2020-10-31 04:31] LABS: HEMATOCRIT. 26.1 % (42.0-52.0); HEMOGLOBIN. 8.5 g/dL (14.0-18.0); MEAN CORPUSCULAR HEMOGLOBIN 29.2 pg (28.0-32.0); MEAN CORPUSCULAR VOLUME 89.3 fL (80.0-94.0); MEAN PLATELET VOLUME 7.7 fl (7.4-10.4); PLATELET 250 x1000/uL (130-400); RED BLOOD CELL COUNT 2.92 mill/uL (4.7-6.1); RED CELL DISTRIBUTION WIDTH 15.9 % (11.6-14.6)
[2020-10-31 04:47] LABS: PHOSPHORUS 5.5 mg/dL (2.5-4.9)
[2020-10-31] MEDS: HYDRALAZINE HCL 100MG TABLET PO SCH ×3 (05:46→21:21)
[2020-10-31] MEDS: DILTIAZEM HCL 60MG TABLET PO SCH ×3 (05:47→17:43)
[2020-10-31] MEDS ORDERED: WARFARIN SODIUM 2.5MG TABLET PO SCH (06:00)
[2020-10-31] MEDS: ALPRAZOLAM 0.25 MG TABLET PO PRN (07:45)
[2020-10-31] MEDS: CARVEDILOL 3.125 MG TABLET PO SCH ×2 (09:00→21:19)
[2020-10-31] MEDS: CLONIDINE 0.1MG TABLET PO SCH ×2 (09:00→21:00)
[2020-10-31] MEDS: SEVELAMER CARBONATE 800 MG TABLET PO SCH ×3 (09:35→17:43)
[2020-10-31] MEDS: ASPIRIN 81MG TABLET PO SCH (09:35)
[2020-10-31] MEDS: OMEPRAZOLE 20MG CAPSULE EXTENDED RELEASE PO SCH (09:35)
[2020-10-31] MEDS: DOCUSATE SODIUM 100MG CAPSULE PO SCH ×2 (09:35→17:42)
[2020-10-31] MEDS: AMIODARONE HCL 200 MG TABLET PO SCH ×2 (09:35→21:00)
[2020-10-31] MEDS: MULTIVITAMINS,THER W-MINERALS TABLET PO SCH (09:35)
[2020-10-31] MEDS: FAMOTIDINE 20MG/2ML VIAL IV SCH (09:36)
[2020-10-31] MEDS: BACITRACIN 15GM TUBE TOP SCH ×4 (09:37→21:21)
[2020-10-31 13:56] LABS: PLATELET ESTIMATE NORMAL
[2020-10-31] MEDS: CEFTRIAXONE 2 G in DEXTROSE 5% WATER 50 ML IV SCH (14:44)
[2020-10-31 17:06] LABS: INR 1.1; PROTHROMBIN TIME 11.7 sec (9.6-11.0)
[2020-10-31] MEDS ORDERED: VANCOMYCIN 500 MG PREMIX 100 ML IV SCH (20:00)
[2020-10-31] MEDS ORDERED: INSULIN GLARGINE UD 100 UNITS/ML SYR SUBCUT ONE (21:00)
[2020-10-31] MEDS: ATORVASTATIN CALCIUM 40MG TABLET PO SCH (21:20)
[2020-10-31] MEDS: SENNOSIDES/DOCUSATE SOD 8.6/50MG TABLET PO SCH (21:21)
[2020-10-31] MEDS ORDERED: DEXTROSE 50% WATER 50ML SYRINGE IV PRN (21:30)
[2020-10-31] MEDS: INSULIN GLARGINE UD 100 UNITS/ML SYR SUBCUT SCH (22:35)
[2020-11-01] VITALS (16 sets, daily range): BP systolic 102–134; BP diastolic 51–76
[2020-11-01] MEDS: DEXT 5%/0.45% NACL 1000ML 1,000 ML IV SCH (00:25)
[2020-11-01] MEDS: DILTIAZEM HCL 60MG TABLET PO SCH ×4 (00:26→17:09)
[2020-11-01] MEDS: MAGNESIUM HYDROXIDE 400MG/5ML 30ML UDC PO SCH ×6 (00:26→20:00)
[2020-11-01] MEDS: DIPHENHYDRAMINE 50MG/ML VIAL IV PRN ×4 (03:33→20:54)
[2020-11-01] MEDS: IPRATROPIUM/ALBUTEROL 0.5-3(2.5)MG/3ML NEB HHN SCH ×5 (04:44→20:24)
[2020-11-01 05:35] LABS: BASOPHILS % 0.5 % (0.0-2.0); EOSINOPHILS % 0.7 % (0.0-5.0); HEMATOCRIT. 25.4 % (42.0-52.0); HEMOGLOBIN. 8.2 g/dL (14.0-18.0); LYMPHOCYTES % 12.7 % (20.0-50.0); MEAN CORPUSCULAR HEMOGLOBIN 28.9 pg (28.0-32.0); MEAN CORPUSCULAR VOLUME 89.6 fL (80.0-94.0); MEAN PLATELET VOLUME 8.2 fl (7.4-10.4); MONOCYTES % 14.6 % (2.0-8.0); NEUTROPHILS % 71.5 % (40.0-76.0); PLATELET 236 x1000/uL (130-400); RED BLOOD CELL COUNT 2.83 mill/uL (4.7-6.1); RED CELL DISTRIBUTION WIDTH 15.9 % (11.6-14.6)
[2020-11-01 05:48] LABS: PHOSPHORUS 4.2 mg/dL (2.5-4.9)
[2020-11-01 05:51] LABS: INR 1.1; PROTHROMBIN TIME 11.5 sec (9.6-11.0)
[2020-11-01] MEDS ORDERED: BLOOD SUGAR DIAGNOSTIC STRIP TEST SCH ×2 (06:00→07:50)
[2020-11-01] MEDS ORDERED: INSULIN LISPRO 100 UNITS/ML SUBCUT SCH (06:00)
[2020-11-01] MEDS: HYDRALAZINE HCL 100MG TABLET PO SCH ×2 (06:00→14:00)
[2020-11-01] MEDS: BLOOD SUGAR DIAGNOSTIC STRIP TEST SCH ×4 (06:24→20:41)
[2020-11-01] MEDS ORDERED: KETOROLAC 30MG/ML VIAL ONE (07:55)
[2020-11-01] MEDS ORDERED: ONDANSETRON HCL 4MG/2ML INJ ONE (07:55)
[2020-11-01] MEDS ORDERED: MAGNESIUM SULFATE 1G IN DEXT 5% 100ML PREMIX IV ONE (07:55)
[2020-11-01] MEDS: CLONIDINE 0.1MG TABLET PO SCH ×2 (08:54→21:10)
[2020-11-01] MEDS: CARVEDILOL 3.125 MG TABLET PO SCH ×2 (08:54→20:54)
[2020-11-01] MEDS: FAMOTIDINE 20MG/2ML VIAL IV SCH (08:58)
[2020-11-01] MEDS: MULTIVITAMINS,THER W-MINERALS TABLET PO SCH (08:59)
[2020-11-01] MEDS: BACITRACIN 15GM TUBE TOP SCH ×4 (08:59→22:18)
[2020-11-01] MEDS: ASPIRIN 81MG TABLET PO SCH (08:59)
[2020-11-01] MEDS: SEVELAMER CARBONATE 800 MG TABLET PO SCH ×3 (08:59→17:09)
[2020-11-01] MEDS: INSULIN LISPRO 100 UNITS/ML SUBCUT SCH ×4 (08:59→20:53)
[2020-11-01] MEDS: DOCUSATE SODIUM 100MG CAPSULE PO SCH ×2 (08:59→17:09)
[2020-11-01] MEDS: AMIODARONE HCL 200 MG TABLET PO SCH ×2 (08:59→20:53)
[2020-11-01 09:02] LABS: HEMATOCRIT 24.3 % (42.0-52.0); MEAN CORPUSCULAR HEMOGLOBIN 29.7 pg (28.0-32.0); MEAN CORPUSCULAR VOLUME 89.7 fL (80.0-94.0); PLATELET 238 x1000/uL (130-400); RED BLOOD CELL COUNT 2.71 mill/uL (4.7-6.1); RED CELL DISTRIBUTION WIDTH 15.6 % (11.6-14.6)
[2020-11-01 09:13] LABS: INR 1.1; PROTHROMBIN TIME 11.5 sec (9.6-11.0)
[2020-11-01] MEDS ORDERED: WARFARIN SODIUM 5MG TABLET PO NR (14:00)
[2020-11-01] MEDS: CEFTRIAXONE 2 G in DEXTROSE 5% WATER 50 ML IV SCH (15:09)
[2020-11-01] MEDS: SENNOSIDES/DOCUSATE SOD 8.6/50MG TABLET PO SCH (20:53)
[2020-11-01] MEDS: ATORVASTATIN CALCIUM 40MG TABLET PO SCH (20:53)
[2020-11-01] MEDS: INSULIN GLARGINE UD 100 UNITS/ML SYR SUBCUT SCH (21:11)
[2020-11-02] VITALS (12 sets, daily range): BP systolic 105–129; BP diastolic 44–68
[2020-11-02] MEDS: IPRATROPIUM/ALBUTEROL 0.5-3(2.5)MG/3ML NEB HHN SCH ×6 (00:12→20:35)
[2020-11-02] MEDS: DILTIAZEM HCL 60MG TABLET PO SCH ×4 (00:14→17:12)
[2020-11-02] MEDS: DEXT 5%/0.45% NACL 1000ML 1,000 ML IV SCH (00:14)
[2020-11-02] MEDS: HYDRALAZINE HCL 100MG TABLET PO SCH ×3 (00:14→13:42)
[2020-11-02] MEDS: MAGNESIUM HYDROXIDE 400MG/5ML 30ML UDC PO SCH ×6 (04:00→20:00)
[2020-11-02] MEDS: DIPHENHYDRAMINE 50MG/ML VIAL IV PRN ×3 (04:12→17:44)
[2020-11-02] MEDS: BLOOD SUGAR DIAGNOSTIC STRIP TEST SCH ×4 (06:14→21:01)
[2020-11-02] MEDS: INSULIN LISPRO 100 UNITS/ML SUBCUT SCH ×4 (06:35→21:00)
[2020-11-02 07:27] LABS: BASOPHILS % 0.6 % (0.0-2.0); EOSINOPHILS % 1.1 % (0.0-5.0); HEMATOCRIT. 24.6 % (42.0-52.0); HEMOGLOBIN. 8.1 g/dL (14.0-18.0); LYMPHOCYTES % 11.6 % (20.0-50.0); MEAN CORPUSCULAR HEMOGLOBIN 29.9 pg (28.0-32.0); MEAN CORPUSCULAR VOLUME 90.7 fL (80.0-94.0); MONOCYTES % 13.5 % (2.0-8.0); NEUTROPHILS % 73.2 % (40.0-76.0); PLATELET 218 x1000/uL (130-400); RED BLOOD CELL COUNT 2.71 mill/uL (4.7-6.1); RED CELL DISTRIBUTION WIDTH 15.8 % (11.6-14.6)
[2020-11-02 07:42] LABS: INR 1.1; PROTHROMBIN TIME 11.4 sec (9.6-11.0)
[2020-11-02] MEDS: SEVELAMER CARBONATE 800 MG TABLET PO SCH ×3 (08:33→16:45)
[2020-11-02] MEDS: ASPIRIN 81MG TABLET PO SCH (08:33)
[2020-11-02] MEDS: DOCUSATE SODIUM 100MG CAPSULE PO SCH ×2 (08:34→16:45)
[2020-11-02] MEDS: BACITRACIN 15GM TUBE TOP SCH ×4 (08:34→21:09)
[2020-11-02] MEDS: CARVEDILOL 3.125 MG TABLET PO SCH ×2 (08:34→21:08)
[2020-11-02] MEDS: FAMOTIDINE 20MG TABLET PO SCH (08:34)
[2020-11-02] MEDS: AMIODARONE HCL 200 MG TABLET PO SCH ×2 (08:34→21:08)
[2020-11-02] MEDS: MULTIVITAMINS,THER W-MINERALS TABLET PO SCH (08:34)
[2020-11-02] MEDS: CLONIDINE 0.1MG TABLET PO SCH ×2 (08:39→21:08)
[2020-11-02] MEDS ORDERED: VANCOMYCIN 500 MG PREMIX 100 ML IV SCH ×2 (09:00→14:00)
[2020-11-02] MEDS: CEFTRIAXONE 2 G in DEXTROSE 5% WATER 50 ML IV SCH (15:16)
[2020-11-02] MEDS ORDERED: WARFARIN SODIUM 5MG TABLET PO SCH (18:00)
[2020-11-02] MEDS: INSULIN GLARGINE UD 100 UNITS/ML SYR SUBCUT SCH (21:07)
[2020-11-02] MEDS: ATORVASTATIN CALCIUM 40MG TABLET PO SCH (21:08)
[2020-11-02] MEDS: SENNOSIDES/DOCUSATE SOD 8.6/50MG TABLET PO SCH (21:08)
[2020-11-03] VITALS (12 sets, daily range): BP systolic 108–139; BP diastolic 47–69
[2020-11-03] MEDS: DILTIAZEM HCL 60MG TABLET PO SCH ×5 (00:26→23:51)
[2020-11-03] MEDS: DEXT 5%/0.45% NACL 1000ML 1,000 ML IV SCH ×2 (00:26→23:49)
[2020-11-03] MEDS: DIPHENHYDRAMINE 50MG/ML VIAL IV PRN ×4 (00:26→21:08)
[2020-11-03] MEDS: HYDRALAZINE HCL 100MG TABLET PO SCH ×4 (00:26→23:51)
[2020-11-03] MEDS: MAGNESIUM HYDROXIDE 400MG/5ML 30ML UDC PO SCH ×7 (03:37→23:53)
[2020-11-03] MEDS: IPRATROPIUM/ALBUTEROL 0.5-3(2.5)MG/3ML NEB HHN SCH ×5 (04:43→20:00)
[2020-11-03] MEDS: BLOOD SUGAR DIAGNOSTIC STRIP TEST SCH ×4 (06:03→21:08)
[2020-11-03] MEDS: INSULIN LISPRO 100 UNITS/ML SUBCUT SCH ×4 (06:14→21:00)
[2020-11-03] MEDS: SEVELAMER CARBONATE 800 MG TABLET PO SCH ×3 (06:29→18:06)
[2020-11-03 06:43] LABS: BASOPHILS % 0.5 % (0.0-2.0); EOSINOPHILS % 1.7 % (0.0-5.0); HEMATOCRIT. 24.8 % (42.0-52.0); HEMOGLOBIN. 8.2 g/dL (14.0-18.0); LYMPHOCYTES % 12.3 % (20.0-50.0); MEAN CORPUSCULAR HEMOGLOBIN 29.9 pg (28.0-32.0); MEAN CORPUSCULAR VOLUME 90.5 fL (80.0-94.0); MEAN PLATELET VOLUME 8.2 fl (7.4-10.4); MONOCYTES % 14.4 % (2.0-8.0); NEUTROPHILS % 71.1 % (40.0-76.0); PLATELET 247 x1000/uL (130-400); RED BLOOD CELL COUNT 2.74 mill/uL (4.7-6.1); RED CELL DISTRIBUTION WIDTH 15.8 % (11.6-14.6)
[2020-11-03 06:46] LABS: INR 1.1; PROTHROMBIN TIME 12.2 sec (9.6-11.0)
[2020-11-03 07:02] LABS: PHOSPHORUS 3.5 mg/dL (2.5-4.9)
[2020-11-03] MEDS: CLONIDINE 0.1MG TABLET PO SCH ×2 (08:10→21:07)
[2020-11-03] MEDS: MULTIVITAMINS,THER W-MINERALS TABLET PO SCH (08:10)
[2020-11-03] MEDS: ASPIRIN 81MG TABLET PO SCH (08:10)
[2020-11-03] MEDS: AMIODARONE HCL 200 MG TABLET PO SCH ×2 (08:10→21:07)
[2020-11-03] MEDS: FAMOTIDINE 20MG TABLET PO SCH (08:11)
[2020-11-03] MEDS: CARVEDILOL 3.125 MG TABLET PO SCH ×2 (08:11→21:07)
[2020-11-03] MEDS: DOCUSATE SODIUM 100MG CAPSULE PO SCH ×2 (08:11→18:06)
[2020-11-03] MEDS: BACITRACIN 15GM TUBE TOP SCH ×4 (08:13→21:06)
[2020-11-03] MEDS ORDERED: MAGNESIUM HYDROXIDE 400MG/5ML 30ML UDC PO PRN (11:15)
[2020-11-03] MEDS: CEFTRIAXONE 2 G in DEXTROSE 5% WATER 50 ML IV SCH (15:06)
[2020-11-03] MEDS ORDERED: WARFARIN SODIUM 5MG TABLET PO NR (18:00)
[2020-11-03] MEDS: BISACODYL 5MG TABLET PO SCH (18:06)
[2020-11-03] MEDS: ATORVASTATIN CALCIUM 40MG TABLET PO SCH (21:07)
[2020-11-03] MEDS: SENNOSIDES/DOCUSATE SOD 8.6/50MG TABLET PO SCH (21:07)
[2020-11-03] MEDS: INSULIN GLARGINE UD 100 UNITS/ML SYR SUBCUT SCH (21:21)
[2020-11-04] VITALS (10 sets, daily range): BP systolic 100–148; BP diastolic 55–75
[2020-11-04] MEDS: IPRATROPIUM/ALBUTEROL 0.5-3(2.5)MG/3ML NEB HHN SCH ×6 (00:09→21:06)
[2020-11-04] MEDS: DIPHENHYDRAMINE 50MG/ML VIAL IV PRN ×3 (03:15→17:55)
[2020-11-04] MEDS: MAGNESIUM HYDROXIDE 400MG/5ML 30ML UDC PO SCH ×6 (03:29→23:36)
[2020-11-04] MEDS: BLOOD SUGAR DIAGNOSTIC STRIP TEST SCH ×4 (06:17→21:48)
[2020-11-04] MEDS: INSULIN LISPRO 100 UNITS/ML SUBCUT SCH ×4 (06:17→21:00)
[2020-11-04] MEDS: HYDRALAZINE HCL 100MG TABLET PO SCH ×3 (06:17→21:48)
[2020-11-04] MEDS: DILTIAZEM HCL 60MG TABLET PO SCH ×4 (06:17→23:36)
[2020-11-04 06:57] LABS: INR 1.4; PROTHROMBIN TIME 15.1 sec (9.6-11.0)
[2020-11-04 07:48] LABS: HEMOGLOBIN 7.9 g/dL (14.0-18.0); MEAN CORPUSCULAR HEMOGLOBIN 29.7 pg (28.0-32.0); MEAN CORPUSCULAR VOLUME 90.4 fL (80.0-94.0); PLATELET 305 x1000/uL (130-400); RED BLOOD CELL COUNT 2.65 mill/uL (4.7-6.1); RED CELL DISTRIBUTION WIDTH 15.3 % (11.6-14.6)
[2020-11-04] MEDS: ASPIRIN 81MG TABLET PO SCH (08:03)
[2020-11-04] MEDS: FAMOTIDINE 20MG TABLET PO SCH (08:03)
[2020-11-04] MEDS: DOCUSATE SODIUM 100MG CAPSULE PO SCH ×2 (08:03→17:00)
[2020-11-04] MEDS: CARVEDILOL 3.125 MG TABLET PO SCH ×2 (08:03→21:47)
[2020-11-04] MEDS: FOLIC ACID/VITAMIN B COMP W-C TABLET PO SCH (08:04)
[2020-11-04] MEDS: SEVELAMER CARBONATE 800 MG TABLET PO SCH ×3 (08:04→17:49)
[2020-11-04] MEDS: AMIODARONE HCL 200 MG TABLET PO SCH ×2 (08:04→21:47)
[2020-11-04] MEDS: BISACODYL 5MG TABLET PO SCH (08:04)
[2020-11-04] MEDS: BACITRACIN 15GM TUBE TOP SCH ×4 (08:07→21:00)
[2020-11-04] MEDS: CLONIDINE 0.1MG TABLET PO SCH ×2 (08:07→21:48)
[2020-11-04] MEDS ORDERED: BISACODYL 5MG TABLET PO SCH (09:00)
[2020-11-04] MEDS: CEFTRIAXONE 2 G in DEXTROSE 5% WATER 50 ML IV SCH (14:07)
[2020-11-04] MEDS: LACTULOSE 20G/30ML UDC PO SCH ×2 (14:07→21:48)
[2020-11-04] MEDS ORDERED: BISACODYL 10MG SUPP PR NR (16:45)
[2020-11-04] MEDS ORDERED: WARFARIN SODIUM 7.5MG TABLET PO NR (18:00)
[2020-11-04] MEDS ORDERED: *PATIENT'S OWN MEDICATION STORAGE XX SCH (18:15)
[2020-11-04] MEDS: SENNOSIDES/DOCUSATE SOD 8.6/50MG TABLET PO SCH (21:46)
[2020-11-04] MEDS: ATORVASTATIN CALCIUM 40MG TABLET PO SCH (21:47)
[2020-11-04] MEDS: INSULIN GLARGINE UD 100 UNITS/ML SYR SUBCUT SCH (21:48)
[2020-11-04] MEDS: DEXT 5%/0.45% NACL 1000ML 1,000 ML IV SCH (23:36)
[2020-11-05] VITALS: BP 132/60
[2020-11-05] MEDS: DIPHENHYDRAMINE 50MG/ML VIAL IV PRN ×4 (00:12→19:46)
[2020-11-05] MEDS: IPRATROPIUM/ALBUTEROL 0.5-3(2.5)MG/3ML NEB HHN SCH ×5 (01:34→16:00)
[2020-11-05 04:00] VITALS: BP 111/67
[2020-11-05] MEDS: MAGNESIUM HYDROXIDE 400MG/5ML 30ML UDC PO SCH ×5 (04:00→20:00)
[2020-11-05 06:03] LABS: PROTHROMBIN TIME 20.3 sec (9.6-11.0)
[2020-11-05 06:05] LABS: BASOPHILS % 0.7 % (0.0-2.0); EOSINOPHILS % 2.6 % (0.0-5.0); HEMATOCRIT. 22.3 % (42.0-52.0); HEMOGLOBIN. 7.4 g/dL (14.0-18.0); MEAN CORPUSCULAR HEMOGLOBIN 29.6 pg (28.0-32.0); MEAN CORPUSCULAR VOLUME 89.9 fL (80.0-94.0); MEAN PLATELET VOLUME 8.2 fl (7.4-10.4); MONOCYTES % 13.8 % (2.0-8.0); NEUTROPHILS % 69.9 % (40.0-76.0); PLATELET 296 x1000/uL (130-400); RED BLOOD CELL COUNT 2.48 mill/uL (4.7-6.1); RED CELL DISTRIBUTION WIDTH 15.4 % (11.6-14.6)
[2020-11-05] MEDS: HYDRALAZINE 20MG/ML VIAL IV PRN (06:13)
[2020-11-05] MEDS: LACTULOSE 20G/30ML UDC PO SCH ×2 (06:14→12:56)
[2020-11-05] MEDS: DILTIAZEM HCL 60MG TABLET PO SCH ×3 (06:14→18:29)
[2020-11-05] MEDS: HYDRALAZINE HCL 100MG TABLET PO SCH ×2 (06:18→12:56)
[2020-11-05] MEDS: INSULIN LISPRO 100 UNITS/ML SUBCUT SCH ×4 (07:20→20:44)
[2020-11-05] MEDS: BLOOD SUGAR DIAGNOSTIC STRIP TEST SCH ×4 (07:20→20:37)
[2020-11-05 08:22] VITALS: BP 106/57
[2020-11-05] MEDS: DOCUSATE SODIUM 100MG CAPSULE PO SCH ×2 (09:00→15:35)
[2020-11-05] MEDS ORDERED: BISACODYL 10MG SUPP PR NR (09:00)
[2020-11-05] MEDS: CLONIDINE 0.1MG TABLET PO SCH ×2 (09:00→20:36)
[2020-11-05] MEDS: BISACODYL 5MG TABLET PO SCH (09:00)
[2020-11-05] MEDS: AMIODARONE HCL 200 MG TABLET PO SCH ×2 (09:00→20:36)
[2020-11-05] MEDS: CARVEDILOL 3.125 MG TABLET PO SCH ×2 (09:00→20:36)
[2020-11-05] MEDS: FOLIC ACID/VITAMIN B COMP W-C TABLET PO SCH (09:03)
[2020-11-05] MEDS: SEVELAMER CARBONATE 800 MG TABLET PO SCH ×3 (09:03→18:29)
[2020-11-05] MEDS: FAMOTIDINE 20MG TABLET PO SCH (09:03)
[2020-11-05] MEDS: ASPIRIN 81MG TABLET PO SCH (09:03)
[2020-11-05] MEDS: BACITRACIN 15GM TUBE TOP SCH ×3 (09:14→17:00)
[2020-11-05 12:07] VITALS: BP 91/42
[2020-11-05] MEDS: CEFTRIAXONE 2 G in DEXTROSE 5% WATER 50 ML IV SCH (15:12)
[2020-11-05 15:29] VITALS: BP 120/64
[2020-11-05] MEDS ORDERED: VANCOMYCIN 500 MG PREMIX 100 ML IV NR ×2 (16:00→20:00)
[2020-11-05] MEDS ORDERED: WARFARIN SODIUM 7.5MG TABLET PO SCH (18:00)
[2020-11-05] MEDS ORDERED: WARFARIN SODIUM 5MG TABLET PO NR (18:00)
[2020-11-05 20:00] VITALS: BP 129/69
[2020-11-05] MEDS: SENNOSIDES/DOCUSATE SOD 8.6/50MG TABLET PO SCH (20:36)
[2020-11-05] MEDS: ATORVASTATIN CALCIUM 40MG TABLET PO SCH (20:36)
[2020-11-05] MEDS: INSULIN GLARGINE UD 100 UNITS/ML SYR SUBCUT SCH (21:15)
== END 2020-11-05 21:30 | DRG 162 ==
LOC: ER 07:37 → EDBEDREQ 08:15 → 5EST 09:33 → EDBEDREQ 09:36 → EDBEDREQTM 09:36 → ENRESERV 10:38 → 5WST 10-23 15:04 → 3WST 10-24 09:07 → CVICU 10-29 10:19 → 3WST 10-29 11:59 → CVICU 10-29 16:12 → 3WST 11-01 01:28 → 6WST 11-05 00:58
PROVIDERS: ADMIT Internal Medicine; ATTEND Internal Medicine
PROC: 5A1D80Z Performance of Urinary Filtration, Prolonged Intermittent, 6-18 hours Per Day (ICD-10-PCS; 2020-10-20)
PROC: 5A1D70Z Performance of Urinary Filtration, Intermittent, Less than 6 Hours Per Day (ICD-10-PCS; 2020-10-22)
PROC: 4A023N7 Measurement of Cardiac Sampling and Pressure, Left Heart, Percutaneous Approach (ICD-10-PCS; principal; 2020-10-24)
PROC: B2111ZZ Fluoroscopy of Multiple Coronary Arteries using Low Osmolar Contrast (ICD-10-PCS; 2020-10-24)
PROC: 5A1D70Z Performance of Urinary Filtration, Intermittent, Less than 6 Hours Per Day (ICD-10-PCS; 2020-10-24)
PROC: 5A1D70Z Performance of Urinary Filtration, Intermittent, Less than 6 Hours Per Day (ICD-10-PCS; 2020-10-26)
PROC: 30233N1 Transfusion of Nonautologous Red Blood Cells into Peripheral Vein, Percutaneous Approach (ICD-10-PCS; 2020-10-28)
PROC: 5A1D70Z Performance of Urinary Filtration, Intermittent, Less than 6 Hours Per Day (ICD-10-PCS; 2020-10-28)
PROC: 02RG08Z Replacement of Mitral Valve with Zooplastic Tissue, Open Approach (ICD-10-PCS; 2020-10-29)
PROC: 5A1221Z Performance of Cardiac Output, Continuous (ICD-10-PCS; 2020-10-29)
PROC: B24BZZ4 Ultrasonography of Heart with Aorta, Transesophageal (ICD-10-PCS; 2020-10-29)
PROC: 5A1D70Z Performance of Urinary Filtration, Intermittent, Less than 6 Hours Per Day (ICD-10-PCS; 2020-10-30)
PROC: 5A1D70Z Performance of Urinary Filtration, Intermittent, Less than 6 Hours Per Day (ICD-10-PCS; 2020-10-31)
PROC: 5A1D70Z Performance of Urinary Filtration, Intermittent, Less than 6 Hours Per Day (ICD-10-PCS; 2020-11-03)
PROC: 5A1D70Z Performance of Urinary Filtration, Intermittent, Less than 6 Hours Per Day (ICD-10-PCS; 2020-11-05)
DX: I33.0 Acute and subacute infective endocarditis (principal); I63.9 Cerebral infarction, unspecified; G93.40 Encephalopathy, unspecified; I13.2 Hypertensive heart and chronic kidney disease with heart failure and with stage 5 chronic kidney disease, or end stage renal disease; E46 Unspecified protein-calorie malnutrition; E11.22 Type 2 diabetes mellitus with diabetic chronic kidney disease; E83.39 Other disorders of phosphorus metabolism; N18.6 End stage renal disease; I36.1 Nonrheumatic tricuspid (valve) insufficiency; N25.81 Secondary hyperparathyroidism of renal origin; G81.94 Hemiplegia, unspecified affecting left nondominant side; I48.91 Unspecified atrial fibrillation; D64.9 Anemia, unspecified; S76.119A Strain of unspecified quadriceps muscle, fascia and tendon, initial encounter; D72.821 Monocytosis (symptomatic); E78.5 Hyperlipidemia, unspecified; G51.0 Bell's palsy; I25.10 Atherosclerotic heart disease of native coronary artery without angina pectoris; R47.01 Aphasia; F32.9 Major depressive disorder, single episode, unspecified; I34.0 Nonrheumatic mitral (valve) insufficiency; I50.42 Chronic combined systolic (congestive) and diastolic (congestive) heart failure; M19.90 Unspecified osteoarthritis, unspecified site; Z96.659 Presence of unspecified artificial knee joint; E87.1 Hypo-osmolality and hyponatremia; K29.50 Unspecified chronic gastritis without bleeding; S90.522A Blister (nonthermal), left ankle, initial encounter; X58.XXXA Exposure to other specified factors, initial encounter; K59.00 Constipation, unspecified; N40.0 Benign prostatic hyperplasia without lower urinary tract symptoms; Z20.822 Contact with and (suspected) exposure to COVID-19; Z53.20 Procedure and treatment not carried out because of patient's decision for unspecified reasons; Z79.4 Long term (current) use of insulin; I25.2 Old myocardial infarction; Z82.49 Family history of ischemic heart disease and other diseases of the circulatory system; Z86.73 Personal history of transient ischemic attack (TIA), and cerebral infarction without residual deficits; Z95.2 Presence of prosthetic heart valve; Z99.2 Dependence on renal dialysis; Y93.89 Activity, other specified; Y92.89 Other specified places as the place of occurrence of the external cause; Y99.8 Other external cause status; Z79.01 Long term (current) use of anticoagulants; Z68.29 Body mass index [BMI] 29.0-29.9, adult
CPT/HCPCS: 36415; 36600; 70496; 70498; 70551; 71045; 74018; 76770; 80048; 80053; 80061; 80202; 80320; 81003; 82270; 82375; 82607; 82728; 82746; 82805; 82962; 83010; 83540; 83550; 83721; 83735; 84100; 84484; 85025; 85027; 85044; 86850; 86900; 86920; 87070; 87075; 87186; 87426; 88305; 88311; 92523; 93005; 93308; 93454; 93880; 93970; 94640; 97110; 97162; 97164; 97166; 97168; 97530; 97535; 97760; 99291; C1725; C1729; C1751; C1758; C1769; C1887; J0282; J0360; J0696; J0885; J1100; J1170; J1200; J1265; J1644; J1815; J1885; J2060; J2250; J2270; J2310; J2370; J2405; J2704; J2710; J2720; J3010; J3370; J3475; J3490; J7030; J7040; J7050; J7060; L3908; P9016; P9047; Q0163; Q9967; G0480

== ENCOUNTER 2020-11-05 21:25 | Inpatient (IN) | payer MEDICAID ==
[~2020-11-05] VITALS: Ht 193 cm; Wt 110.0 kg
[2020-11-05 21:20] VITALS: BP 122/65
[2020-11-05 21:25] VITALS: BP 122/65
[2020-11-05] MEDS ORDERED: DIPHENHYDRAMINE 50MG CAPSULE PO PRN (22:45)
[2020-11-05] MEDS ORDERED: DEXTROSE 50% WATER 50ML SYRINGE IV PRN (22:45)
[2020-11-05] MEDS ORDERED: ONDANSETRON HCL 4MG/2ML INJ IV PRN (22:45)
[2020-11-05] MEDS ORDERED: NITROGLYCERIN 0.4MG TABLET SL SL PRN (22:45)
[2020-11-05] MEDS ORDERED: CLONIDINE 0.1MG TABLET PO PRN (22:45)
[2020-11-05] MEDS ORDERED: IPRATROPIUM/ALBUTEROL 0.5-3(2.5)MG/3ML NEB HHN PRN (22:45)
[2020-11-05] MEDS ORDERED: MAGNESIUM HYDROXIDE 400MG/5ML 30ML UDC PO PRN (22:45)
[2020-11-05] MEDS: MAGNESIUM HYDROXIDE 400MG/5ML 30ML UDC PO SCH (23:37)
[2020-11-05] MEDS: HYDRALAZINE HCL 100MG TABLET PO SCH (23:50)
[2020-11-05] MEDS: DILTIAZEM HCL 60MG TABLET PO SCH (23:50)
[2020-11-06] MEDS ORDERED: *PATIENT'S OWN MEDICATION STORAGE XX SCH (00:15)
[2020-11-06] MEDS: IPRATROPIUM/ALBUTEROL 0.5-3(2.5)MG/3ML NEB HHN SCH ×6 (01:30→22:00)
[2020-11-06] MEDS: MAGNESIUM HYDROXIDE 400MG/5ML 30ML UDC PO SCH ×5 (04:00→21:29)
[2020-11-06] MEDS: LACTULOSE 20G/30ML UDC PO SCH ×3 (05:50→21:29)
[2020-11-06] MEDS: HYDRALAZINE HCL 100MG TABLET PO SCH ×3 (05:50→21:30)
[2020-11-06] MEDS: DILTIAZEM HCL 60MG TABLET PO SCH ×3 (05:50→18:07)
[2020-11-06] MEDS: BLOOD SUGAR DIAGNOSTIC STRIP TEST SCH ×4 (06:23→21:00)
[2020-11-06] MEDS: DIPHENHYDRAMINE 50MG/ML VIAL IV PRN ×3 (06:28→21:38)
[2020-11-06 07:28] LABS: INR 2.9; PROTHROMBIN TIME 28.5 sec (9.6-11.0)
[2020-11-06 08:26] VITALS: BP 125/66
[2020-11-06] MEDS: INSULIN LISPRO 100 UNITS/ML SUBCUT SCH ×4 (09:00→21:00)
[2020-11-06] MEDS: SEVELAMER CARBONATE 800 MG TABLET PO SCH ×3 (09:02→18:08)
[2020-11-06] MEDS: ASPIRIN 81MG TABLET PO SCH (09:02)
[2020-11-06] MEDS: DOCUSATE SODIUM 100MG CAPSULE PO SCH ×2 (09:02→18:08)
[2020-11-06] MEDS: CLONIDINE 0.1MG TABLET PO SCH ×2 (09:02→21:30)
[2020-11-06] MEDS: BISACODYL 5MG TABLET PO SCH (09:03)
[2020-11-06] MEDS: FAMOTIDINE 20MG TABLET PO SCH (09:03)
[2020-11-06] MEDS: AMIODARONE HCL 200 MG TABLET PO SCH ×2 (09:03→21:29)
[2020-11-06] MEDS: FOLIC ACID/VITAMIN B COMP W-C TABLET PO SCH (09:03)
[2020-11-06] MEDS: BACITRACIN 15GM TUBE TOP SCH ×4 (09:04→22:09)
[2020-11-06] MEDS: CARVEDILOL 3.125 MG TABLET PO SCH ×2 (09:04→21:29)
[2020-11-06 12:25] VITALS: BP 104/52
[2020-11-06] MEDS: CEFTRIAXONE 2 G in DEXTROSE 5% WATER 50 ML IV SCH (15:20)
[2020-11-06] MEDS ORDERED: WARFARIN SODIUM 5MG TABLET PO NR (18:00)
[2020-11-06] MEDS ORDERED: BENZONATATE 100MG CAPSULE PO PRN (18:15)
[2020-11-06] MEDS: PHENYLEPH/PRAMOXIN/GLYCR/PET RECTAL CREAM 26GM PR SCH (18:34)
[2020-11-06 20:00] VITALS: BP 119/60
[2020-11-06] MEDS: SENNOSIDES/DOCUSATE SOD 8.6/50MG TABLET PO SCH (21:29)
[2020-11-06] MEDS: ATORVASTATIN CALCIUM 40MG TABLET PO SCH (21:29)
[2020-11-06] MEDS: INSULIN GLARGINE UD 100 UNITS/ML SYR SUBCUT SCH (22:08)
[2020-11-07] MEDS: DILTIAZEM HCL 60MG TABLET PO SCH ×4 (00:46→17:46)
[2020-11-07] MEDS: PHENYLEPH/PRAMOXIN/GLYCR/PET RECTAL CREAM 26GM PR SCH ×4 (00:46→17:45)
[2020-11-07] MEDS: IPRATROPIUM/ALBUTEROL 0.5-3(2.5)MG/3ML NEB HHN SCH ×4 (04:10→16:00)
[2020-11-07] MEDS: DIPHENHYDRAMINE 50MG/ML VIAL IV PRN ×2 (05:48→11:54)
[2020-11-07] MEDS: HYDRALAZINE HCL 100MG TABLET PO SCH ×3 (05:49→22:00)
[2020-11-07] MEDS: LACTULOSE 20G/30ML UDC PO SCH ×3 (06:00→22:00)
[2020-11-07 06:43] LABS: BASOPHILS % 0.8 % (0.0-2.0); EOSINOPHILS % 2.2 % (0.0-5.0); HEMATOCRIT. 23.4 % (42.0-52.0); HEMOGLOBIN. 7.6 g/dL (14.0-18.0); LYMPHOCYTES % 13.5 % (20.0-50.0); MEAN PLATELET VOLUME 7.7 fl (7.4-10.4); MONOCYTES % 14.6 % (2.0-8.0); NEUTROPHILS % 68.9 % (40.0-76.0); PLATELET 415 x1000/uL (130-400); RED BLOOD CELL COUNT 2.63 mill/uL (4.7-6.1); RED CELL DISTRIBUTION WIDTH 15.6 % (11.6-14.6)
[2020-11-07] MEDS: BLOOD SUGAR DIAGNOSTIC STRIP TEST SCH ×4 (06:47→21:00)
[2020-11-07 06:48] LABS: PHOSPHORUS 3.9 mg/dL (2.5-4.9)
[2020-11-07] MEDS: INSULIN LISPRO 100 UNITS/ML SUBCUT SCH ×4 (07:09→21:00)
[2020-11-07 07:47] LABS: INR 4.2
[2020-11-07 08:22] VITALS: BP 141/61
[2020-11-07] MEDS: BACITRACIN 15GM TUBE TOP SCH ×4 (09:00→23:31)
[2020-11-07] MEDS: FOLIC ACID/VITAMIN B COMP W-C TABLET PO SCH (09:03)
[2020-11-07] MEDS: FAMOTIDINE 20MG TABLET PO SCH (09:04)
[2020-11-07] MEDS: ASPIRIN 81MG TABLET PO SCH (09:04)
[2020-11-07] MEDS: CLONIDINE 0.1MG TABLET PO SCH ×2 (09:04→21:00)
[2020-11-07] MEDS: DOCUSATE SODIUM 100MG CAPSULE PO SCH ×2 (09:04→17:42)
[2020-11-07] MEDS: AMIODARONE HCL 200 MG TABLET PO SCH (09:04)
[2020-11-07] MEDS: CARVEDILOL 3.125 MG TABLET PO SCH ×2 (09:04→21:00)
[2020-11-07] MEDS: SEVELAMER CARBONATE 800 MG TABLET PO SCH ×3 (09:05→17:42)
[2020-11-07] MEDS: BISACODYL 5MG TABLET PO SCH (13:40)
[2020-11-07] MEDS: CEFTRIAXONE 2 G in DEXTROSE 5% WATER 50 ML IV SCH (15:43)
[2020-11-07] MEDS ORDERED: VANCOMYCIN 500 MG PREMIX 100 ML IV NR (18:00)
[2020-11-07 20:00] VITALS: BP 100/45
[2020-11-07] MEDS: SENNOSIDES/DOCUSATE SOD 8.6/50MG TABLET PO SCH (21:00)
[2020-11-07] MEDS: ATORVASTATIN CALCIUM 40MG TABLET PO SCH (23:30)
[2020-11-07] MEDS: INSULIN GLARGINE UD 100 UNITS/ML SYR SUBCUT SCH (23:35)
[2020-11-08] MEDS: DIPHENHYDRAMINE 50MG/ML VIAL IV PRN ×3 (00:22→22:46)
[2020-11-08] MEDS: AMIODARONE HCL 200 MG TABLET PO SCH ×3 (01:47→22:00)
[2020-11-08] MEDS: DILTIAZEM HCL 60MG TABLET PO SCH ×4 (01:48→17:24)
[2020-11-08] MEDS: PHENYLEPH/PRAMOXIN/GLYCR/PET RECTAL CREAM 26GM PR SCH ×4 (01:48→17:24)
[2020-11-08] MEDS: HYDRALAZINE HCL 100MG TABLET PO SCH ×3 (05:36→22:50)
[2020-11-08] MEDS: LACTULOSE 20G/30ML UDC PO SCH ×3 (05:47→22:44)
[2020-11-08] MEDS: BLOOD SUGAR DIAGNOSTIC STRIP TEST SCH ×4 (05:47→21:00)
[2020-11-08 07:00] LABS: INR 3.3; PROTHROMBIN TIME 32.3 sec (9.6-11.0)
[2020-11-08] MEDS: IPRATROPIUM/ALBUTEROL 0.5-3(2.5)MG/3ML NEB HHN SCH (07:34)
[2020-11-08 08:00] VITALS: BP 130/66
[2020-11-08] MEDS: INSULIN LISPRO 100 UNITS/ML SUBCUT SCH ×4 (09:00→21:00)
[2020-11-08] MEDS: CARVEDILOL 3.125 MG TABLET PO SCH ×2 (09:32→21:59)
[2020-11-08] MEDS: SEVELAMER CARBONATE 800 MG TABLET PO SCH ×3 (09:32→17:24)
[2020-11-08] MEDS: BISACODYL 5MG TABLET PO SCH (09:32)
[2020-11-08] MEDS: DOCUSATE SODIUM 100MG CAPSULE PO SCH ×2 (09:32→17:24)
[2020-11-08] MEDS: ASPIRIN 81MG TABLET PO SCH (09:32)
[2020-11-08] MEDS: FAMOTIDINE 20MG TABLET PO SCH (09:33)
[2020-11-08] MEDS: ACETAMINOPHEN 325MG TABLET PO PRN (09:33)
[2020-11-08] MEDS: CLONIDINE 0.1MG TABLET PO SCH ×2 (09:33→21:59)
[2020-11-08] MEDS: FOLIC ACID/VITAMIN B COMP W-C TABLET PO SCH (09:33)
[2020-11-08] MEDS: BACITRACIN 15GM TUBE TOP SCH ×6 (09:34→22:03)
[2020-11-08] MEDS: CEFTRIAXONE 2 G in DEXTROSE 5% WATER 50 ML IV SCH (14:24)
[2020-11-08] MEDS: FERROUS SULFATE 325MG TABLET PO SCH (17:24)
[2020-11-08] MEDS ORDERED: WARFARIN SODIUM 1MG TABLET PO NR (18:00)
[2020-11-08 20:00] VITALS: BP 156/72
[2020-11-08] MEDS: ATORVASTATIN CALCIUM 40MG TABLET PO SCH (21:58)
[2020-11-08] MEDS: SENNOSIDES/DOCUSATE SOD 8.6/50MG TABLET PO SCH (22:05)
[2020-11-08] MEDS: INSULIN GLARGINE UD 100 UNITS/ML SYR SUBCUT SCH (23:10)
[2020-11-09] MEDS: DILTIAZEM HCL 60MG TABLET PO SCH ×5 (00:23→23:40)
[2020-11-09] MEDS: LACTULOSE 20G/30ML UDC PO SCH ×3 (06:00→22:00)
[2020-11-09] MEDS: PHENYLEPH/PRAMOXIN/GLYCR/PET RECTAL CREAM 26GM PR SCH ×5 (06:00→23:46)
[2020-11-09] MEDS: HYDRALAZINE HCL 100MG TABLET PO SCH ×3 (06:16→23:40)
[2020-11-09] MEDS: BLOOD SUGAR DIAGNOSTIC STRIP TEST SCH ×4 (06:20→21:00)
[2020-11-09] MEDS ORDERED: NA PHOS,M-B/NA PHOS,DI-BA ENEMA 118ML PR NR (07:07)
[2020-11-09 07:08] LABS: INR 3.4; PROTHROMBIN TIME 32.9 sec (9.6-11.0)
[2020-11-09 07:29] LABS: EOSINOPHILS % 1.3 % (0.0-5.0); HEMOGLOBIN. 8.2 g/dL (14.0-18.0); LYMPHOCYTES % 9.2 % (20.0-50.0); MEAN CORPUSCULAR HEMOGLOBIN 30.6 pg (28.0-32.0); NEUTROPHILS % 76.5 % (40.0-76.0); PLATELET 505 x1000/uL (130-400); RED BLOOD CELL COUNT 2.69 mill/uL (4.7-6.1); RED CELL DISTRIBUTION WIDTH 15.4 % (11.6-14.6)
[2020-11-09 08:00] VITALS: BP 141/73
[2020-11-09] MEDS: FOLIC ACID/VITAMIN B COMP W-C TABLET PO SCH (08:33)
[2020-11-09] MEDS: BISACODYL 5MG TABLET PO SCH (08:33)
[2020-11-09] MEDS: AMIODARONE HCL 200 MG TABLET PO SCH ×2 (08:33→21:59)
[2020-11-09] MEDS: CLONIDINE 0.1MG TABLET PO SCH ×2 (08:33→21:59)
[2020-11-09] MEDS: SEVELAMER CARBONATE 800 MG TABLET PO SCH ×3 (08:33→19:04)
[2020-11-09] MEDS: ASPIRIN 81MG TABLET PO SCH (08:33)
[2020-11-09] MEDS: FERROUS SULFATE 325MG TABLET PO SCH ×2 (08:34→17:00)
[2020-11-09] MEDS: CARVEDILOL 3.125 MG TABLET PO SCH ×2 (08:34→22:00)
[2020-11-09] MEDS: DOCUSATE SODIUM 100MG CAPSULE PO SCH ×2 (08:34→17:00)
[2020-11-09] MEDS: FAMOTIDINE 20MG TABLET PO SCH (08:34)
[2020-11-09] MEDS: BACITRACIN 15GM TUBE TOP SCH ×3 (08:35→22:05)
[2020-11-09] MEDS: INSULIN LISPRO 100 UNITS/ML SUBCUT SCH ×4 (09:00→21:00)
[2020-11-09] MEDS: CEFTRIAXONE 2 G in DEXTROSE 5% WATER 50 ML IV SCH ×2 (15:48→19:05)
[2020-11-09] MEDS: DIPHENHYDRAMINE 50MG/ML VIAL IV PRN ×2 (16:07→23:41)
[2020-11-09 20:00] VITALS: BP 144/60
[2020-11-09] MEDS ORDERED: VANCOMYCIN 500 MG PREMIX 100 ML IV NR (21:00)
[2020-11-09] MEDS: ATORVASTATIN CALCIUM 40MG TABLET PO SCH (21:59)
[2020-11-09] MEDS: SENNOSIDES/DOCUSATE SOD 8.6/50MG TABLET PO SCH (21:59)
[2020-11-09] MEDS: ZOLPIDEM TARTRATE 5MG TABLET PO PRN (22:00)
[2020-11-09] MEDS: INSULIN GLARGINE UD 100 UNITS/ML SYR SUBCUT SCH (22:04)
[2020-11-09] MEDS: EPOETIN ALFA-EPBX 10,000 UNIT/ML VIAL SUBCUT SCH (22:06)
[2020-11-10] MEDS: LACTULOSE 20G/30ML UDC PO SCH ×3 (06:00→21:31)
[2020-11-10] MEDS: PHENYLEPH/PRAMOXIN/GLYCR/PET RECTAL CREAM 26GM PR SCH ×3 (06:00→18:47)
[2020-11-10] MEDS: HYDRALAZINE HCL 100MG TABLET PO SCH ×3 (06:09→21:31)
[2020-11-10] MEDS: BLOOD SUGAR DIAGNOSTIC STRIP TEST SCH ×4 (06:10→21:30)
[2020-11-10] MEDS: DILTIAZEM HCL 60MG TABLET PO SCH ×3 (06:11→18:46)
[2020-11-10 06:55] LABS: PROTHROMBIN TIME 41.6 sec (9.6-11.0)
[2020-11-10 07:38] LABS: INR 4.4
[2020-11-10 08:00] VITALS: BP 97/53
[2020-11-10] MEDS: CARVEDILOL 3.125 MG TABLET PO SCH ×2 (09:00→21:00)
[2020-11-10] MEDS: ASPIRIN 81MG TABLET PO SCH (09:00)
[2020-11-10] MEDS: INSULIN LISPRO 100 UNITS/ML SUBCUT SCH ×4 (09:00→21:00)
[2020-11-10] MEDS: CLONIDINE 0.1MG TABLET PO SCH ×2 (10:28→21:00)
[2020-11-10] MEDS: BISACODYL 5MG TABLET PO SCH (10:29)
[2020-11-10] MEDS: FERROUS SULFATE 325MG TABLET PO SCH ×2 (10:29→17:09)
[2020-11-10] MEDS: DOCUSATE SODIUM 100MG CAPSULE PO SCH ×2 (10:29→17:09)
[2020-11-10] MEDS: FOLIC ACID/VITAMIN B COMP W-C TABLET PO SCH (10:30)
[2020-11-10] MEDS: FAMOTIDINE 20MG TABLET PO SCH (10:30)
[2020-11-10] MEDS: AMIODARONE HCL 200 MG TABLET PO SCH ×2 (10:30→21:57)
[2020-11-10] MEDS: BACITRACIN 15GM TUBE TOP SCH ×4 (10:31→21:57)
[2020-11-10] MEDS: SEVELAMER CARBONATE 800 MG TABLET PO SCH ×3 (10:31→17:10)
[2020-11-10] MEDS: DIPHENHYDRAMINE 50MG/ML VIAL IV PRN ×2 (12:56→21:57)
[2020-11-10] MEDS: CEFTRIAXONE 2 G in DEXTROSE 5% WATER 50 ML IV SCH (15:06)
[2020-11-10 20:00] VITALS: BP 105/66
[2020-11-10] MEDS: SENNOSIDES/DOCUSATE SOD 8.6/50MG TABLET PO SCH (21:00)
[2020-11-10] MEDS: INSULIN GLARGINE UD 100 UNITS/ML SYR SUBCUT SCH (21:39)
[2020-11-10] MEDS: ATORVASTATIN CALCIUM 40MG TABLET PO SCH (21:57)
[2020-11-11] MEDS: DILTIAZEM HCL 60MG TABLET PO SCH ×4 (00:12→17:38)
[2020-11-11] MEDS: PHENYLEPH/PRAMOXIN/GLYCR/PET RECTAL CREAM 26GM PR SCH ×3 (00:13→13:49)
[2020-11-11] MEDS: ZOLPIDEM TARTRATE 5MG TABLET PO PRN (00:13)
[2020-11-11] MEDS: LACTULOSE 20G/30ML UDC PO SCH ×2 (05:07→13:46)
[2020-11-11] MEDS: HYDRALAZINE HCL 100MG TABLET PO SCH ×3 (05:10→22:00)
[2020-11-11] MEDS: BLOOD SUGAR DIAGNOSTIC STRIP TEST SCH ×4 (06:37→21:00)
[2020-11-11 08:12] VITALS: BP 144/69
[2020-11-11 08:12] LABS: PROTHROMBIN TIME 43.3 sec (9.6-11.0)
[2020-11-11 08:34] LABS: INR 4.5
[2020-11-11] MEDS: INSULIN LISPRO 100 UNITS/ML SUBCUT SCH ×4 (09:00→21:00)
[2020-11-11] MEDS: DOCUSATE SODIUM 100MG CAPSULE PO SCH ×2 (09:00→16:37)
[2020-11-11] MEDS: BISACODYL 5MG TABLET PO SCH (09:00)
[2020-11-11] MEDS: SEVELAMER CARBONATE 800 MG TABLET PO SCH ×3 (09:28→16:23)
[2020-11-11] MEDS: FERROUS SULFATE 325MG TABLET PO SCH ×2 (09:29→16:23)
[2020-11-11] MEDS: ASPIRIN 81MG TABLET PO SCH (09:29)
[2020-11-11] MEDS: CARVEDILOL 3.125 MG TABLET PO SCH ×2 (09:29→22:34)
[2020-11-11] MEDS: AMIODARONE HCL 200 MG TABLET PO SCH ×2 (09:29→22:40)
[2020-11-11] MEDS: FOLIC ACID/VITAMIN B COMP W-C TABLET PO SCH (09:29)
[2020-11-11] MEDS: FAMOTIDINE 20MG TABLET PO SCH (09:29)
[2020-11-11] MEDS: CLONIDINE 0.1MG TABLET PO SCH ×2 (09:30→22:34)
[2020-11-11] MEDS: DIPHENHYDRAMINE 50MG/ML VIAL IV PRN ×3 (10:31→22:41)
[2020-11-11] MEDS: BACITRACIN 15GM TUBE TOP SCH ×4 (10:31→22:35)
[2020-11-11] MEDS: CEFTRIAXONE 2 G in DEXTROSE 5% WATER 50 ML IV SCH (16:22)
[2020-11-11] MEDS ORDERED: DOCUSATE SODIUM 100MG CAPSULE PO PRN (17:45)
[2020-11-11] MEDS ORDERED: LACTULOSE 20G/30ML UDC PO PRN (17:45)
[2020-11-11] MEDS ORDERED: SENNOSIDES/DOCUSATE SOD 8.6/50MG TABLET PO PRN (17:45)
[2020-11-11] MEDS ORDERED: BISACODYL 5MG TABLET PO PRN (17:45)
[2020-11-11] MEDS ORDERED: PHENYLEPH/PRAMOXIN/GLYCR/PET RECTAL CREAM 26GM PR PRN (19:00)
[2020-11-11 20:00] VITALS: BP 146/72
[2020-11-11] MEDS: INSULIN GLARGINE UD 100 UNITS/ML SYR SUBCUT SCH (22:00)
[2020-11-11] MEDS: ATORVASTATIN CALCIUM 40MG TABLET PO SCH (22:33)
[2020-11-12] MEDS: DILTIAZEM HCL 60MG TABLET PO SCH ×3 (00:42→12:27)
[2020-11-12] MEDS: HYDRALAZINE HCL 100MG TABLET PO SCH ×3 (06:00→22:00)
[2020-11-12 06:04] LABS: INR 3.6; PROTHROMBIN TIME 34.9 sec (9.6-11.0)
[2020-11-12] MEDS: BLOOD SUGAR DIAGNOSTIC STRIP TEST SCH ×4 (06:31→21:46)
[2020-11-12] MEDS: INSULIN LISPRO 100 UNITS/ML SUBCUT SCH ×4 (06:32→21:00)
[2020-11-12 08:17] VITALS: BP 129/69
[2020-11-12] MEDS: FOLIC ACID/VITAMIN B COMP W-C TABLET PO SCH (08:28)
[2020-11-12] MEDS: FAMOTIDINE 20MG TABLET PO SCH (08:28)
[2020-11-12] MEDS: ASPIRIN 81MG TABLET PO SCH (08:28)
[2020-11-12] MEDS: CLONIDINE 0.1MG TABLET PO SCH ×2 (08:30→21:00)
[2020-11-12] MEDS: CARVEDILOL 3.125 MG TABLET PO SCH ×2 (08:31→21:00)
[2020-11-12] MEDS: FERROUS SULFATE 325MG TABLET PO SCH ×2 (08:33→17:42)
[2020-11-12] MEDS: AMIODARONE HCL 200 MG TABLET PO SCH ×2 (08:33→22:13)
[2020-11-12] MEDS: SEVELAMER CARBONATE 800 MG TABLET PO SCH ×3 (08:37→17:41)
[2020-11-12] MEDS: BACITRACIN 15GM TUBE TOP SCH ×6 (09:00→22:18)
[2020-11-12 09:57] LABS: BASOPHILS % 1.3 % (0.0-2.0); EOSINOPHILS % 1.8 % (0.0-5.0); HEMATOCRIT. 23.3 % (42.0-52.0); HEMOGLOBIN. 7.6 g/dL (14.0-18.0); MEAN CORPUSCULAR VOLUME 88.7 fL (80.0-94.0); MEAN PLATELET VOLUME 7.3 fl (7.4-10.4); MONOCYTES % 10.7 % (2.0-8.0); NEUTROPHILS % 73.2 % (40.0-76.0); PLATELET 516 x1000/uL (130-400); RED BLOOD CELL COUNT 2.63 mill/uL (4.7-6.1); RED CELL DISTRIBUTION WIDTH 15.8 % (11.6-14.6)
[2020-11-12] MEDS ORDERED: VANCOMYCIN 500 MG PREMIX 100 ML IV NR (18:00)
[2020-11-12] MEDS: DIPHENHYDRAMINE 50MG/ML VIAL IV PRN (18:14)
[2020-11-12 20:00] VITALS: BP 129/65
[2020-11-12] MEDS: INSULIN GLARGINE UD 100 UNITS/ML SYR SUBCUT SCH (21:47)
[2020-11-12] MEDS: EPOETIN ALFA-EPBX 10,000 UNIT/ML VIAL SUBCUT SCH (22:13)
[2020-11-12] MEDS: ATORVASTATIN CALCIUM 40MG TABLET PO SCH (22:14)
[2020-11-12] MEDS: CEFTRIAXONE 2 G in DEXTROSE 5% WATER 50 ML IV SCH (22:15)
[2020-11-13] MEDS: DILTIAZEM HCL 60MG TABLET PO SCH ×6 (00:14→22:35)
[2020-11-13] MEDS: DIPHENHYDRAMINE 50MG/ML VIAL IV PRN ×2 (00:17→17:15)
[2020-11-13] MEDS: HYDRALAZINE HCL 100MG TABLET PO SCH ×3 (06:00→22:45)
[2020-11-13] MEDS: BLOOD SUGAR DIAGNOSTIC STRIP TEST SCH ×4 (06:35→21:00)
[2020-11-13] MEDS: INSULIN LISPRO 100 UNITS/ML SUBCUT SCH ×4 (06:36→21:00)
[2020-11-13 07:25] LABS: INR 2.5; PROTHROMBIN TIME 24.9 sec (9.6-11.0)
[2020-11-13 08:00] VITALS: BP 127/67
[2020-11-13] MEDS: FAMOTIDINE 20MG TABLET PO SCH (08:28)
[2020-11-13] MEDS: SEVELAMER CARBONATE 800 MG TABLET PO SCH ×3 (08:28→17:15)
[2020-11-13] MEDS: AMIODARONE HCL 200 MG TABLET PO SCH ×2 (08:30→21:00)
[2020-11-13] MEDS: FOLIC ACID/VITAMIN B COMP W-C TABLET PO SCH (08:30)
[2020-11-13] MEDS: ACETAMINOPHEN 325MG TABLET PO PRN (08:30)
[2020-11-13] MEDS: CLONIDINE 0.1MG TABLET PO SCH ×2 (08:30→22:37)
[2020-11-13] MEDS: ASPIRIN 81MG TABLET PO SCH (08:30)
[2020-11-13] MEDS: CARVEDILOL 3.125 MG TABLET PO SCH ×2 (08:31→22:38)
[2020-11-13] MEDS: FERROUS SULFATE 325MG TABLET PO SCH ×2 (08:31→17:15)
[2020-11-13] MEDS: BACITRACIN 15GM TUBE TOP SCH ×4 (08:31→22:44)
[2020-11-13] MEDS: CEFTRIAXONE 2 G in DEXTROSE 5% WATER 50 ML IV SCH (15:11)
[2020-11-13] MEDS ORDERED: WARFARIN SODIUM 1MG TABLET PO NR (18:00)
[2020-11-13 20:00] VITALS: BP 140/85
[2020-11-13] MEDS: INSULIN GLARGINE UD 100 UNITS/ML SYR SUBCUT SCH (22:33)
[2020-11-13] MEDS: ATORVASTATIN CALCIUM 40MG TABLET PO SCH (22:38)
[2020-11-13] MEDS: ZOLPIDEM TARTRATE 5MG TABLET PO PRN (22:45)
[2020-11-14] MEDS: HYDRALAZINE HCL 100MG TABLET PO SCH ×3 (06:07→23:11)
[2020-11-14] MEDS: DILTIAZEM HCL 60MG TABLET PO SCH ×3 (06:08→18:04)
[2020-11-14] MEDS: BLOOD SUGAR DIAGNOSTIC STRIP TEST SCH ×4 (06:08→21:00)
[2020-11-14 08:00] VITALS: BP 111/50
[2020-11-14 08:37] LABS: INR 2.3; PROTHROMBIN TIME 23.5 sec (9.6-11.0)
[2020-11-14 08:53] LABS: BASOPHILS % 0.7 % (0.0-2.0); EOSINOPHILS % 1.4 % (0.0-5.0); HEMATOCRIT. 22.9 % (42.0-52.0); HEMOGLOBIN. 7.6 g/dL (14.0-18.0); MEAN CORPUSCULAR HEMOGLOBIN 28.6 pg (28.0-32.0); MEAN PLATELET VOLUME 7.2 fl (7.4-10.4); MONOCYTES % 10.8 % (2.0-8.0); NEUTROPHILS % 77.1 % (40.0-76.0); PLATELET 508 x1000/uL (130-400); RED BLOOD CELL COUNT 2.66 mill/uL (4.7-6.1); RED CELL DISTRIBUTION WIDTH 15.7 % (11.6-14.6)
[2020-11-14] MEDS: INSULIN LISPRO 100 UNITS/ML SUBCUT SCH ×4 (09:00→21:00)
[2020-11-14] MEDS ORDERED: DOXERCALCIFEROL 0.5MCG CAPSULE PO SCH (09:00)
[2020-11-14] MEDS: SEVELAMER CARBONATE 800 MG TABLET PO SCH ×3 (09:01→16:08)
[2020-11-14] MEDS: ASPIRIN 81MG TABLET PO SCH (09:01)
[2020-11-14] MEDS: FOLIC ACID/VITAMIN B COMP W-C TABLET PO SCH (09:01)
[2020-11-14] MEDS: AMIODARONE HCL 200 MG TABLET PO SCH ×2 (09:01→23:10)
[2020-11-14] MEDS: CARVEDILOL 3.125 MG TABLET PO SCH (09:02)
[2020-11-14] MEDS: CLONIDINE 0.1MG TABLET PO SCH ×2 (09:02→23:10)
[2020-11-14] MEDS: CINACALCET HCL 60MG TABLET PO SCH (09:02)
[2020-11-14] MEDS: FAMOTIDINE 20MG TABLET PO SCH (09:02)
[2020-11-14] MEDS: FERROUS SULFATE 325MG TABLET PO SCH ×3 (09:03→16:08)
[2020-11-14] MEDS: BACITRACIN 15GM TUBE TOP SCH ×2 (09:03→21:00)
[2020-11-14] MEDS: DOXERCALCIFEROL 2.5 MCG CAPSULE PO SCH (13:40)
[2020-11-14] MEDS: CEFTRIAXONE 2 G in DEXTROSE 5% WATER 50 ML IV SCH (16:02)
[2020-11-14] MEDS ORDERED: WARFARIN SODIUM 1MG TABLET PO NR (18:00)
[2020-11-14] MEDS: DIPHENHYDRAMINE 50MG/ML VIAL IV PRN (19:42)
[2020-11-14 20:00] VITALS: BP 146/75
[2020-11-14] MEDS: INSULIN GLARGINE UD 100 UNITS/ML SYR SUBCUT SCH (22:00)
[2020-11-14] MEDS: ATORVASTATIN CALCIUM 40MG TABLET PO SCH (23:11)
[2020-11-14] MEDS: EPOETIN ALFA-EPBX 10,000 UNIT/ML VIAL SUBCUT SCH (23:12)
[2020-11-15] MEDS: DILTIAZEM HCL 60MG TABLET PO SCH ×5 (00:06→22:09)
[2020-11-15] MEDS: CARVEDILOL 3.125 MG TABLET PO SCH ×3 (00:09→20:53)
[2020-11-15] MEDS ORDERED: ZOLPIDEM TARTRATE 5MG TABLET PO PRN (00:45)
[2020-11-15] MEDS: BLOOD SUGAR DIAGNOSTIC STRIP TEST SCH ×4 (06:32→20:56)
[2020-11-15] MEDS: HYDRALAZINE HCL 100MG TABLET PO SCH ×3 (06:33→22:04)
[2020-11-15] MEDS: INSULIN LISPRO 100 UNITS/ML SUBCUT SCH ×4 (06:38→20:55)
[2020-11-15 06:47] LABS: INR 2.2; PROTHROMBIN TIME 22.6 sec (9.6-11.0)
[2020-11-15 08:17] VITALS: BP 106/58
[2020-11-15] MEDS: CLONIDINE 0.1MG TABLET PO SCH ×2 (09:00→20:52)
[2020-11-15] MEDS: SEVELAMER CARBONATE 800 MG TABLET PO SCH ×3 (09:29→16:29)
[2020-11-15] MEDS: ASPIRIN 81MG TABLET PO SCH (09:30)
[2020-11-15] MEDS: CINACALCET HCL 60MG TABLET PO SCH (09:30)
[2020-11-15] MEDS: AMIODARONE HCL 200 MG TABLET PO SCH ×2 (09:30→20:55)
[2020-11-15] MEDS: FERROUS SULFATE 325MG TABLET PO SCH ×2 (09:30→16:29)
[2020-11-15] MEDS: FOLIC ACID/VITAMIN B COMP W-C TABLET PO SCH (09:31)
[2020-11-15] MEDS: FAMOTIDINE 20MG TABLET PO SCH (09:31)
[2020-11-15] MEDS: BACITRACIN 15GM TUBE TOP SCH ×4 (09:37→21:00)
[2020-11-15] MEDS ORDERED: LOPERAMIDE HCL 2MG CAPSULE PO PRN (11:15)
[2020-11-15] MEDS ORDERED: VANCOMYCIN 500 MG PREMIX 100 ML IV NR (12:30)
[2020-11-15] MEDS ORDERED: LIDOCAINE HCL 1% 20ML VIAL (Pyxis) INJ ONE (13:56)
[2020-11-15] MEDS: DIPHENHYDRAMINE 50MG/ML VIAL IV PRN ×2 (16:34→21:14)
[2020-11-15] MEDS ORDERED: WARFARIN SODIUM 2MG TABLET PO NR (18:00)
[2020-11-15] MEDS: CEFTRIAXONE 2 G in DEXTROSE 5% WATER 50 ML IV SCH (18:13)
[2020-11-15 20:00] VITALS: BP 164/82
[2020-11-15] MEDS: ATORVASTATIN CALCIUM 40MG TABLET PO SCH (20:54)
[2020-11-15] MEDS: INSULIN GLARGINE UD 100 UNITS/ML SYR SUBCUT SCH (22:05)
[2020-11-16] MEDS: ZOLPIDEM TARTRATE 5MG TABLET PO PRN (01:03)
[2020-11-16] MEDS: HYDRALAZINE HCL 100MG TABLET PO SCH ×2 (06:28→13:38)
[2020-11-16] MEDS: DILTIAZEM HCL 60MG TABLET PO SCH ×3 (06:29→18:00)
[2020-11-16] MEDS: BLOOD SUGAR DIAGNOSTIC STRIP TEST SCH ×4 (06:34→20:44)
[2020-11-16 08:26] VITALS: BP 129/63
[2020-11-16] MEDS: INSULIN LISPRO 100 UNITS/ML SUBCUT SCH ×4 (09:00→20:44)
[2020-11-16] MEDS: ASPIRIN 81MG TABLET PO SCH (09:40)
[2020-11-16] MEDS: CARVEDILOL 3.125 MG TABLET PO SCH (09:40)
[2020-11-16] MEDS: SEVELAMER CARBONATE 800 MG TABLET PO SCH ×3 (09:40→17:09)
[2020-11-16] MEDS: FERROUS SULFATE 325MG TABLET PO SCH ×2 (09:40→17:09)
[2020-11-16] MEDS: BACITRACIN 15GM TUBE TOP SCH ×4 (09:40→21:00)
[2020-11-16] MEDS: DOXERCALCIFEROL 2.5 MCG CAPSULE PO SCH (09:40)
[2020-11-16] MEDS: CINACALCET HCL 60MG TABLET PO SCH (09:40)
[2020-11-16] MEDS: FAMOTIDINE 20MG TABLET PO SCH (09:40)
[2020-11-16] MEDS: AMIODARONE HCL 200 MG TABLET PO SCH (09:40)
[2020-11-16] MEDS: FOLIC ACID/VITAMIN B COMP W-C TABLET PO SCH (09:40)
[2020-11-16] MEDS: CLONIDINE 0.1MG TABLET PO SCH ×2 (10:00→21:00)
[2020-11-16 10:31] LABS: EOSINOPHILS % 0.8 % (0.0-5.0); HEMATOCRIT. 21.3 % (42.0-52.0); HEMOGLOBIN. 7.2 g/dL (14.0-18.0); LYMPHOCYTES % 9.8 % (20.0-50.0); MEAN CORPUSCULAR HEMOGLOBIN 29.3 pg (28.0-32.0); MEAN CORPUSCULAR VOLUME 86.5 fL (80.0-94.0); MEAN PLATELET VOLUME 7.2 fl (7.4-10.4); NEUTROPHILS % 78.4 % (40.0-76.0); PLATELET 474 x1000/uL (130-400); RED BLOOD CELL COUNT 2.47 mill/uL (4.7-6.1); RED CELL DISTRIBUTION WIDTH 15.5 % (11.6-14.6)
[2020-11-16 10:38] LABS: INR 2.1
[2020-11-16] MEDS: CEFTRIAXONE 2 G in DEXTROSE 5% WATER 50 ML IV SCH (16:55)
[2020-11-16] MEDS ORDERED: WARFARIN SODIUM 2.5MG TABLET PO NR (18:00)
[2020-11-16 20:00] VITALS: BP 131/68
[2020-11-16] MEDS: DIPHENHYDRAMINE 50MG/ML VIAL IV PRN (20:42)
[2020-11-16] MEDS: INSULIN GLARGINE UD 100 UNITS/ML SYR SUBCUT SCH (22:00)
[2020-11-17] VITALS (8 sets, daily range): BP systolic 118–147; BP diastolic 57–76
[2020-11-17] MEDS: AMIODARONE HCL 200 MG TABLET PO SCH ×3 (01:33→21:14)
[2020-11-17] MEDS: DILTIAZEM HCL 60MG TABLET PO SCH ×4 (01:34→18:00)
[2020-11-17] MEDS: CARVEDILOL 3.125 MG TABLET PO SCH ×3 (01:35→21:14)
[2020-11-17] MEDS: ATORVASTATIN CALCIUM 40MG TABLET PO SCH ×2 (01:35→21:14)
[2020-11-17] MEDS: HYDRALAZINE HCL 100MG TABLET PO SCH ×4 (01:37→21:14)
[2020-11-17] MEDS: DIPHENHYDRAMINE 50MG/ML VIAL IV PRN ×2 (02:48→22:06)
[2020-11-17] MEDS: BLOOD SUGAR DIAGNOSTIC STRIP TEST SCH ×4 (06:39→20:47)
[2020-11-17] MEDS: INSULIN LISPRO 100 UNITS/ML SUBCUT SCH ×4 (06:41→20:47)
[2020-11-17 07:09] LABS: INR 1.8; PROTHROMBIN TIME 18.3 sec (9.6-11.0)
[2020-11-17 07:51] LABS: HEMATOCRIT 21.2 % (42.0-52.0); MEAN CORPUSCULAR HEMOGLOBIN 28.8 pg (28.0-32.0); MEAN CORPUSCULAR VOLUME 88.4 fL (80.0-94.0); PLATELET 444 x1000/uL (130-400); RED CELL DISTRIBUTION WIDTH 15.4 % (11.6-14.6)
[2020-11-17 08:50] LABS: HEMOGLOBIN 6.9 g/dL (14.0-18.0)
[2020-11-17] MEDS: CLONIDINE 0.1MG TABLET PO SCH ×2 (09:00→21:14)
[2020-11-17] MEDS: SEVELAMER CARBONATE 800 MG TABLET PO SCH ×3 (09:12→19:25)
[2020-11-17] MEDS: ASPIRIN 81MG TABLET PO SCH (09:12)
[2020-11-17] MEDS: CINACALCET HCL 60MG TABLET PO SCH (09:13)
[2020-11-17] MEDS: FAMOTIDINE 20MG TABLET PO SCH (09:13)
[2020-11-17] MEDS: FOLIC ACID/VITAMIN B COMP W-C TABLET PO SCH (09:13)
[2020-11-17] MEDS: FERROUS SULFATE 325MG TABLET PO SCH ×2 (09:13→19:25)
[2020-11-17] MEDS: BACITRACIN 15GM TUBE TOP SCH ×4 (09:18→21:00)
[2020-11-17] MEDS: VANCOMYCIN 1 G PREMIX 200 ML IV SCH ×2 (15:05→19:25)
[2020-11-17] MEDS ORDERED: WARFARIN SODIUM 2.5MG TABLET PO SCH (18:00)
[2020-11-17] MEDS: CEFTRIAXONE 2 G in DEXTROSE 5% WATER 50 ML IV SCH (19:25)
[2020-11-17] MEDS: INSULIN GLARGINE UD 100 UNITS/ML SYR SUBCUT SCH (21:15)
[2020-11-18] MEDS: ZOLPIDEM TARTRATE 5MG TABLET PO PRN (01:36)
[2020-11-18] MEDS: DILTIAZEM HCL 60MG TABLET PO SCH ×5 (01:37→17:06)
[2020-11-18] MEDS: HYDRALAZINE HCL 100MG TABLET PO SCH ×3 (05:40→22:00)
[2020-11-18] MEDS: BLOOD SUGAR DIAGNOSTIC STRIP TEST SCH ×4 (05:40→21:00)
[2020-11-18 07:43] VITALS: BP 112/56
[2020-11-18] MEDS: SEVELAMER CARBONATE 800 MG TABLET PO SCH ×3 (08:58→17:06)
[2020-11-18] MEDS: FERROUS SULFATE 325MG TABLET PO SCH ×2 (08:58→17:06)
[2020-11-18] MEDS: FAMOTIDINE 20MG TABLET PO SCH (08:58)
[2020-11-18] MEDS: ASPIRIN 81MG TABLET PO SCH (08:58)
[2020-11-18] MEDS: BACITRACIN 15GM TUBE TOP SCH ×4 (08:59→22:41)
[2020-11-18] MEDS: AMIODARONE HCL 200 MG TABLET PO SCH ×2 (08:59→22:39)
[2020-11-18] MEDS: CARVEDILOL 3.125 MG TABLET PO SCH ×2 (08:59→21:00)
[2020-11-18] MEDS: CINACALCET HCL 60MG TABLET PO SCH (08:59)
[2020-11-18] MEDS: FOLIC ACID/VITAMIN B COMP W-C TABLET PO SCH (08:59)
[2020-11-18] MEDS: INSULIN LISPRO 100 UNITS/ML SUBCUT SCH ×4 (09:00→21:00)
[2020-11-18] MEDS: CLONIDINE 0.1MG TABLET PO SCH ×2 (09:03→22:40)
[2020-11-18 11:32] LABS: BASOPHILS % 1.3 % (0.0-2.0); EOSINOPHILS % 1.2 % (0.0-5.0); HEMATOCRIT. 23.9 % (42.0-52.0); LYMPHOCYTES % 12.7 % (20.0-50.0); MEAN CORPUSCULAR HEMOGLOBIN 29.3 pg (28.0-32.0); MEAN CORPUSCULAR VOLUME 87.5 fL (80.0-94.0); MEAN PLATELET VOLUME 7.4 fl (7.4-10.4); MONOCYTES % 11.3 % (2.0-8.0); NEUTROPHILS % 73.5 % (40.0-76.0); PLATELET 381 x1000/uL (130-400); RED BLOOD CELL COUNT 2.73 mill/uL (4.7-6.1); RED CELL DISTRIBUTION WIDTH 15.9 % (11.6-14.6)
[2020-11-18 11:42] LABS: INR 1.8; PROTHROMBIN TIME 18.1 sec (9.6-11.0)
[2020-11-18 12:12] VITALS: BP 113/62
[2020-11-18] MEDS: DIPHENHYDRAMINE 50MG/ML VIAL IV PRN ×2 (12:16→22:49)
[2020-11-18 14:37] VITALS: BP 115/69
[2020-11-18] MEDS: CEFTRIAXONE 2 G in DEXTROSE 5% WATER 50 ML IV SCH (15:25)
[2020-11-18 16:51] VITALS: BP 127/60
[2020-11-18] MEDS ORDERED: WARFARIN SODIUM 3MG TABLET PO SCH (18:00)
[2020-11-18 20:00] VITALS: BP 159/79
[2020-11-18 21:00] VITALS: BP 150/72
[2020-11-18] MEDS: INSULIN GLARGINE UD 100 UNITS/ML SYR SUBCUT SCH (22:00)
[2020-11-18] MEDS: ATORVASTATIN CALCIUM 40MG TABLET PO SCH (22:40)
[2020-11-19] MEDS: DILTIAZEM HCL 60MG TABLET PO SCH ×4 (01:11→18:00)
[2020-11-19] MEDS: BLOOD SUGAR DIAGNOSTIC STRIP TEST SCH ×4 (06:22→21:10)
[2020-11-19] MEDS: INSULIN LISPRO 100 UNITS/ML SUBCUT SCH ×4 (06:23→21:00)
[2020-11-19] MEDS: HYDRALAZINE HCL 100MG TABLET PO SCH ×3 (06:24→22:27)
[2020-11-19 08:00] VITALS: BP 140/73
[2020-11-19] MEDS: SEVELAMER CARBONATE 800 MG TABLET PO SCH ×3 (09:44→17:05)
[2020-11-19] MEDS: FERROUS SULFATE 325MG TABLET PO SCH ×2 (09:44→17:05)
[2020-11-19] MEDS: ASPIRIN 81MG TABLET PO SCH (09:44)
[2020-11-19] MEDS: CARVEDILOL 3.125 MG TABLET PO SCH ×2 (09:45→21:00)
[2020-11-19] MEDS: FAMOTIDINE 20MG TABLET PO SCH (09:45)
[2020-11-19] MEDS: DOXERCALCIFEROL 2.5 MCG CAPSULE PO SCH (09:45)
[2020-11-19] MEDS: AMIODARONE HCL 200 MG TABLET PO SCH ×2 (09:45→22:26)
[2020-11-19] MEDS: CINACALCET HCL 60MG TABLET PO SCH (09:46)
[2020-11-19] MEDS: FOLIC ACID/VITAMIN B COMP W-C TABLET PO SCH (09:46)
[2020-11-19] MEDS: CLONIDINE 0.1MG TABLET PO SCH ×2 (09:46→22:27)
[2020-11-19] MEDS: BACITRACIN 15GM TUBE TOP SCH ×6 (09:48→22:28)
[2020-11-19 11:26] LABS: EOSINOPHILS % 1.7 % (0.0-5.0); HEMATOCRIT. 26.5 % (42.0-52.0); HEMOGLOBIN. 8.7 g/dL (14.0-18.0); LYMPHOCYTES % 12.2 % (20.0-50.0); MEAN CORPUSCULAR HEMOGLOBIN 28.9 pg (28.0-32.0); MEAN CORPUSCULAR VOLUME 88.3 fL (80.0-94.0); MEAN PLATELET VOLUME 7.3 fl (7.4-10.4); NEUTROPHILS % 76.1 % (40.0-76.0); PLATELET 434 x1000/uL (130-400)
[2020-11-19 11:33] LABS: INR 1.8; PROTHROMBIN TIME 18.7 sec (9.6-11.0)
[2020-11-19] MEDS: CEFTRIAXONE 2 G in DEXTROSE 5% WATER 50 ML IV SCH (15:05)
[2020-11-19] MEDS ORDERED: WARFARIN SODIUM 3MG TABLET PO NR (18:00)
[2020-11-19] MEDS ORDERED: VANCOMYCIN 500 MG PREMIX 100 ML IV NR (18:00)
[2020-11-19] MEDS: DIPHENHYDRAMINE 50MG/ML VIAL IV PRN ×2 (18:19→23:48)
[2020-11-19 20:00] VITALS: BP 155/76
[2020-11-19] MEDS: INSULIN GLARGINE UD 100 UNITS/ML SYR SUBCUT SCH (22:00)
[2020-11-19] MEDS: ATORVASTATIN CALCIUM 40MG TABLET PO SCH (22:26)
[2020-11-20] MEDS: DILTIAZEM HCL 60MG TABLET PO SCH ×5 (05:31→23:53)
[2020-11-20] MEDS: HYDRALAZINE HCL 100MG TABLET PO SCH ×3 (05:32→22:30)
[2020-11-20] MEDS: BLOOD SUGAR DIAGNOSTIC STRIP TEST SCH ×4 (05:33→21:22)
[2020-11-20] MEDS: INSULIN LISPRO 100 UNITS/ML SUBCUT SCH ×4 (05:33→21:00)
[2020-11-20 07:25] LABS: BASOPHILS % 1.1 % (0.0-2.0); EOSINOPHILS % 1.4 % (0.0-5.0); HEMATOCRIT. 24.7 % (42.0-52.0); HEMOGLOBIN. 8.1 g/dL (14.0-18.0); LYMPHOCYTES % 12.9 % (20.0-50.0); MEAN CORPUSCULAR HEMOGLOBIN 29.2 pg (28.0-32.0); MEAN CORPUSCULAR VOLUME 88.6 fL (80.0-94.0); MEAN PLATELET VOLUME 7.5 fl (7.4-10.4); MONOCYTES % 10.7 % (2.0-8.0); NEUTROPHILS % 73.9 % (40.0-76.0); PLATELET 368 x1000/uL (130-400); RED BLOOD CELL COUNT 2.78 mill/uL (4.7-6.1); RED CELL DISTRIBUTION WIDTH 15.9 % (11.6-14.6)
[2020-11-20 07:28] LABS: INR 1.6; PROTHROMBIN TIME 16.9 sec (9.6-11.0)
[2020-11-20 08:00] VITALS: BP 134/76
[2020-11-20] MEDS: AMIODARONE HCL 200 MG TABLET PO SCH ×2 (08:20→21:21)
[2020-11-20] MEDS: FOLIC ACID/VITAMIN B COMP W-C TABLET PO SCH (08:22)
[2020-11-20] MEDS: FERROUS SULFATE 325MG TABLET PO SCH ×2 (08:22→16:19)
[2020-11-20] MEDS: CARVEDILOL 3.125 MG TABLET PO SCH ×2 (08:23→21:20)
[2020-11-20] MEDS: FAMOTIDINE 20MG TABLET PO SCH (08:23)
[2020-11-20] MEDS: CLONIDINE 0.1MG TABLET PO SCH ×2 (08:25→21:19)
[2020-11-20] MEDS: CINACALCET HCL 60MG TABLET PO SCH (08:26)
[2020-11-20] MEDS: SEVELAMER CARBONATE 800 MG TABLET PO SCH ×3 (08:27→16:19)
[2020-11-20] MEDS: ASPIRIN 81MG TABLET PO SCH (08:27)
[2020-11-20] MEDS: BACITRACIN 15GM TUBE TOP SCH ×2 (08:28→21:24)
[2020-11-20] MEDS: SERTRALINE HCL 25MG TABLET PO SCH (16:20)
[2020-11-20] MEDS: CEFTRIAXONE 2 G in DEXTROSE 5% WATER 50 ML IV SCH (16:26)
[2020-11-20] MEDS ORDERED: WARFARIN SODIUM 5MG TABLET PO NR (18:00)
[2020-11-20] MEDS: DIPHENHYDRAMINE 50MG/ML VIAL IV PRN ×2 (18:51→23:53)
[2020-11-20 20:00] VITALS: BP 156/78
[2020-11-20] MEDS: ATORVASTATIN CALCIUM 40MG TABLET PO SCH (21:20)
[2020-11-20] MEDS: INSULIN GLARGINE UD 100 UNITS/ML SYR SUBCUT SCH (22:32)
[2020-11-20 22:37] LABS: HEPATITIS B SURFACE AB > 1000.0 mIU/mL
[2020-11-20 22:48] LABS: HEPATITIS B SURFACE ANTIGEN NEGATIVE
[2020-11-21] MEDS: HYDRALAZINE HCL 100MG TABLET PO SCH ×3 (06:08→22:00)
[2020-11-21] MEDS: BLOOD SUGAR DIAGNOSTIC STRIP TEST SCH ×4 (06:09→21:00)
[2020-11-21] MEDS: DILTIAZEM HCL 60MG TABLET PO SCH ×4 (06:09→23:19)
[2020-11-21 07:09] LABS: INR 1.6; PROTHROMBIN TIME 16.7 sec (9.6-11.0)
[2020-11-21 08:20] VITALS: BP 180/85
[2020-11-21] MEDS: INSULIN LISPRO 100 UNITS/ML SUBCUT SCH ×4 (09:00→21:00)
[2020-11-21] MEDS: ASPIRIN 81MG TABLET PO SCH (10:13)
[2020-11-21] MEDS: AMIODARONE HCL 200 MG TABLET PO SCH ×2 (10:14→23:08)
[2020-11-21] MEDS: SEVELAMER CARBONATE 800 MG TABLET PO SCH ×3 (10:14→16:57)
[2020-11-21] MEDS: DOXERCALCIFEROL 2.5 MCG CAPSULE PO SCH (10:14)
[2020-11-21] MEDS: CINACALCET HCL 60MG TABLET PO SCH (10:14)
[2020-11-21] MEDS: FERROUS SULFATE 325MG TABLET PO SCH ×2 (10:14→16:57)
[2020-11-21] MEDS: CARVEDILOL 3.125 MG TABLET PO SCH ×2 (10:15→21:00)
[2020-11-21] MEDS: FOLIC ACID/VITAMIN B COMP W-C TABLET PO SCH (10:15)
[2020-11-21] MEDS: SERTRALINE HCL 25MG TABLET PO SCH (10:15)
[2020-11-21] MEDS: CLONIDINE 0.1MG TABLET PO SCH ×2 (10:15→21:00)
[2020-11-21] MEDS: FAMOTIDINE 20MG TABLET PO SCH (10:15)
[2020-11-21] MEDS: BACITRACIN 15GM TUBE TOP SCH ×4 (10:17→23:08)
[2020-11-21] MEDS: CEFTRIAXONE 2 G in DEXTROSE 5% WATER 50 ML IV SCH (16:57)
[2020-11-21] MEDS ORDERED: WARFARIN SODIUM 4MG TABLET PO NR (18:00)
[2020-11-21 20:00] VITALS: BP 132/66
[2020-11-21] MEDS: DIPHENHYDRAMINE 50MG/ML VIAL IV PRN (20:37)
[2020-11-21] MEDS: INSULIN GLARGINE UD 100 UNITS/ML SYR SUBCUT SCH (22:00)
[2020-11-21] MEDS: ATORVASTATIN CALCIUM 40MG TABLET PO SCH (23:07)
[2020-11-22] MEDS: DIPHENHYDRAMINE 50MG/ML VIAL IV PRN (03:13)
[2020-11-22] MEDS: HYDRALAZINE HCL 100MG TABLET PO SCH ×3 (06:39→22:00)
[2020-11-22] MEDS: BLOOD SUGAR DIAGNOSTIC STRIP TEST SCH ×4 (06:40→21:45)
[2020-11-22] MEDS: DILTIAZEM HCL 60MG TABLET PO SCH ×3 (06:40→17:44)
[2020-11-22] MEDS: AMIODARONE HCL 200 MG TABLET PO SCH ×2 (09:00→21:45)
[2020-11-22] MEDS: FAMOTIDINE 20MG TABLET PO SCH (09:00)
[2020-11-22] MEDS: CLONIDINE 0.1MG TABLET PO SCH ×2 (09:00→21:45)
[2020-11-22] MEDS: SERTRALINE HCL 25MG TABLET PO SCH (09:00)
[2020-11-22] MEDS: INSULIN LISPRO 100 UNITS/ML SUBCUT SCH ×4 (09:00→21:00)
[2020-11-22] MEDS: BACITRACIN 15GM TUBE TOP SCH ×4 (09:00→21:44)
[2020-11-22] MEDS: SEVELAMER CARBONATE 800 MG TABLET PO SCH ×3 (10:01→17:41)
[2020-11-22] MEDS: FOLIC ACID/VITAMIN B COMP W-C TABLET PO SCH (10:01)
[2020-11-22] MEDS: CINACALCET HCL 60MG TABLET PO SCH (10:02)
[2020-11-22] MEDS: FERROUS SULFATE 325MG TABLET PO SCH ×2 (10:02→17:44)
[2020-11-22] MEDS: CARVEDILOL 3.125 MG TABLET PO SCH ×2 (10:03→21:45)
[2020-11-22] MEDS: ASPIRIN 81MG TABLET PO SCH (10:03)
[2020-11-22 11:03] LABS: INR 1.7; PROTHROMBIN TIME 17.2 sec (9.6-11.0)
[2020-11-22] MEDS: CEFTRIAXONE 2 G in DEXTROSE 5% WATER 50 ML IV SCH (16:43)
[2020-11-22] MEDS ORDERED: WARFARIN SODIUM 2MG TABLET PO SCH (18:00)
[2020-11-22] MEDS ORDERED: WARFARIN SODIUM 4MG TABLET PO SCH (18:00)
[2020-11-22 20:00] VITALS: BP 129/74
[2020-11-22] MEDS: ATORVASTATIN CALCIUM 40MG TABLET PO SCH (21:44)
[2020-11-22] MEDS: INSULIN GLARGINE UD 100 UNITS/ML SYR SUBCUT SCH (22:00)
[2020-11-23] MEDS: DIPHENHYDRAMINE 50MG/ML VIAL IV PRN ×2 (00:42→21:34)
[2020-11-23] MEDS: CLONIDINE 0.1MG TABLET PO SCH ×2 (03:28→10:03)
[2020-11-23] MEDS: BACITRACIN 15GM TUBE TOP SCH ×3 (03:30→09:00)
[2020-11-23] MEDS: BLOOD SUGAR DIAGNOSTIC STRIP TEST SCH ×4 (06:38→21:00)
[2020-11-23] MEDS: DILTIAZEM HCL 60MG TABLET PO SCH ×3 (06:39→13:09)
[2020-11-23] MEDS: HYDRALAZINE HCL 100MG TABLET PO SCH ×2 (06:39→14:00)
[2020-11-23 08:00] VITALS: BP 126/61
[2020-11-23] MEDS: FAMOTIDINE 20MG TABLET PO SCH (09:00)
[2020-11-23] MEDS: INSULIN LISPRO 100 UNITS/ML SUBCUT SCH ×4 (09:00→21:00)
[2020-11-23] MEDS: SERTRALINE HCL 25MG TABLET PO SCH (09:00)
[2020-11-23 09:13] LABS: INR 1.9; PROTHROMBIN TIME 19.2 sec (9.6-11.0)
[2020-11-23] MEDS: SEVELAMER CARBONATE 800 MG TABLET PO SCH ×2 (09:58→13:07)
[2020-11-23] MEDS: ASPIRIN 81MG TABLET PO SCH (09:58)
[2020-11-23] MEDS: DOXERCALCIFEROL 2.5 MCG CAPSULE PO SCH (09:58)
[2020-11-23] MEDS: FERROUS SULFATE 325MG TABLET PO SCH ×2 (09:58→17:21)
[2020-11-23] MEDS: FOLIC ACID/VITAMIN B COMP W-C TABLET PO SCH (09:58)
[2020-11-23] MEDS: CINACALCET HCL 60MG TABLET PO SCH (09:59)
[2020-11-23] MEDS: CARVEDILOL 3.125 MG TABLET PO SCH (09:59)
[2020-11-23] MEDS: AMIODARONE HCL 200 MG TABLET PO SCH (10:00)
[2020-11-23 13:02] LABS: HEMATOCRIT 23.7 % (42.0-52.0); HEMOGLOBIN 7.9 g/dL (14.0-18.0); MEAN CORPUSCULAR VOLUME 87.2 fL (80.0-94.0); PLATELET 389 x1000/uL (130-400); RED BLOOD CELL COUNT 2.72 mill/uL (4.7-6.1); RED CELL DISTRIBUTION WIDTH 16.4 % (11.6-14.6)
[2020-11-23] MEDS: CEFTRIAXONE 2 G in DEXTROSE 5% WATER 50 ML IV SCH (17:00)
[2020-11-23 17:05] VITALS: BP 120/63
[2020-11-23] MEDS ORDERED: VANCOMYCIN 750 MG PREMIX 150 ML IV NR (18:00)
[2020-11-23] MEDS ORDERED: WARFARIN SODIUM 4MG TABLET PO SCH (18:00)
[2020-11-23 20:00] VITALS: BP 116/60
[2020-11-24] MEDS: ATORVASTATIN CALCIUM 40MG TABLET PO SCH ×2 (03:26→21:44)
[2020-11-24] MEDS: AMIODARONE HCL 200 MG TABLET PO SCH ×3 (03:26→21:45)
[2020-11-24] MEDS: WARFARIN SODIUM 4MG TABLET PO SCH (03:30)
[2020-11-24] MEDS: HYDRALAZINE HCL 100MG TABLET PO SCH ×4 (03:31→22:00)
[2020-11-24] MEDS: INSULIN GLARGINE UD 100 UNITS/ML SYR SUBCUT SCH ×2 (03:34→22:25)
[2020-11-24] MEDS: CARVEDILOL 3.125 MG TABLET PO SCH ×3 (03:41→21:00)
[2020-11-24] MEDS: DIPHENHYDRAMINE 50MG/ML VIAL IV PRN ×3 (03:45→22:13)
[2020-11-24] MEDS: DILTIAZEM HCL 60MG TABLET PO SCH ×4 (06:00→17:49)
[2020-11-24] MEDS: BLOOD SUGAR DIAGNOSTIC STRIP TEST SCH ×4 (06:53→21:45)
[2020-11-24 08:00] VITALS: BP 111/48
[2020-11-24] MEDS: BACITRACIN 15GM TUBE TOP SCH ×4 (09:00→21:00)
[2020-11-24] MEDS: INSULIN LISPRO 100 UNITS/ML SUBCUT SCH ×4 (09:00→21:00)
[2020-11-24] MEDS: SEVELAMER CARBONATE 800 MG TABLET PO SCH ×4 (09:07→17:48)
[2020-11-24] MEDS: SERTRALINE HCL 25MG TABLET PO SCH (09:08)
[2020-11-24] MEDS: ASPIRIN 81MG TABLET PO SCH (09:08)
[2020-11-24] MEDS: CLONIDINE 0.1MG TABLET PO SCH ×2 (09:08→21:00)
[2020-11-24] MEDS: FOLIC ACID/VITAMIN B COMP W-C TABLET PO SCH ×2 (09:08→09:11)
[2020-11-24] MEDS: FERROUS SULFATE 325MG TABLET PO SCH ×2 (09:09→17:51)
[2020-11-24] MEDS: FAMOTIDINE 20MG TABLET PO SCH (09:09)
[2020-11-24] MEDS: CINACALCET HCL 60MG TABLET PO SCH (09:20)
[2020-11-24 12:18] LABS: INR 2.1; PROTHROMBIN TIME 21.5 sec (9.6-11.0)
[2020-11-24 15:19] LABS: TOTAL IRON BINDING CAPACITY 124 ug/dL (250-450)
[2020-11-24] MEDS: CEFTRIAXONE 2 G in DEXTROSE 5% WATER 50 ML IV SCH (15:42)
[2020-11-24] MEDS: LIDOCAINE 5% PATCH TOP SCH (17:51)
[2020-11-24] MEDS ORDERED: WARFARIN SODIUM 4MG TABLET PO NR (18:00)
[2020-11-24 20:00] VITALS: BP 136/74
[2020-11-25] MEDS: HYDRALAZINE HCL 100MG TABLET PO SCH ×3 (06:00→22:00)
[2020-11-25] MEDS: DILTIAZEM HCL 60MG TABLET PO SCH ×4 (06:30→18:14)
[2020-11-25] MEDS: BLOOD SUGAR DIAGNOSTIC STRIP TEST SCH ×4 (06:42→21:37)
[2020-11-25 07:57] VITALS: BP 116/54
[2020-11-25] MEDS: INSULIN LISPRO 100 UNITS/ML SUBCUT SCH ×4 (08:31→21:00)
[2020-11-25 08:49] LABS: EOSINOPHILS % 1.1 % (0.0-5.0); HEMATOCRIT. 21.4 % (42.0-52.0); HEMOGLOBIN. 7.2 g/dL (14.0-18.0); LYMPHOCYTES % 9.9 % (20.0-50.0); MEAN CORPUSCULAR HEMOGLOBIN 29.9 pg (28.0-32.0); MEAN PLATELET VOLUME 7.6 fl (7.4-10.4); MONOCYTES % 14.4 % (2.0-8.0); NEUTROPHILS % 73.6 % (40.0-76.0); PLATELET 362 x1000/uL (130-400); RED BLOOD CELL COUNT 2.41 mill/uL (4.7-6.1); RED CELL DISTRIBUTION WIDTH 16.3 % (11.6-14.6)
[2020-11-25] MEDS: ASPIRIN 81MG TABLET PO SCH (08:52)
[2020-11-25] MEDS: CLONIDINE 0.1MG TABLET PO SCH ×2 (08:54→21:00)
[2020-11-25] MEDS: CARVEDILOL 3.125 MG TABLET PO SCH ×2 (08:54→21:00)
[2020-11-25 08:55] LABS: INR 2.3; PROTHROMBIN TIME 23.2 sec (9.6-11.0)
[2020-11-25] MEDS: AMIODARONE HCL 200 MG TABLET PO SCH ×2 (08:55→21:40)
[2020-11-25] MEDS: FERROUS SULFATE 325MG TABLET PO SCH ×2 (08:55→17:10)
[2020-11-25] MEDS: SEVELAMER CARBONATE 800 MG TABLET PO SCH ×3 (08:56→17:10)
[2020-11-25] MEDS: CINACALCET HCL 60MG TABLET PO SCH (08:56)
[2020-11-25] MEDS: SERTRALINE HCL 25MG TABLET PO SCH (08:56)
[2020-11-25] MEDS: FAMOTIDINE 20MG TABLET PO SCH (08:56)
[2020-11-25] MEDS: LIDOCAINE 5% PATCH TOP SCH (08:58)
[2020-11-25] MEDS: DIPHENHYDRAMINE 50MG/ML VIAL IV PRN ×2 (08:58→18:23)
[2020-11-25] MEDS: BACITRACIN 15GM TUBE TOP SCH ×5 (09:00→21:44)
[2020-11-25] MEDS: CEFTRIAXONE 2 G in DEXTROSE 5% WATER 50 ML IV SCH (17:10)
[2020-11-25] MEDS ORDERED: WARFARIN SODIUM 4MG TABLET PO NR (18:00)
[2020-11-25 20:00] VITALS: BP 127/62
[2020-11-25] MEDS: INSULIN GLARGINE UD 100 UNITS/ML SYR SUBCUT SCH (21:38)
[2020-11-25] MEDS: ATORVASTATIN CALCIUM 40MG TABLET PO SCH (21:39)
[2020-11-26] MEDS: DILTIAZEM HCL 60MG TABLET PO SCH ×5 (00:25→23:46)
[2020-11-26] MEDS: DIPHENHYDRAMINE 50MG/ML VIAL IV PRN ×2 (01:01→18:55)
[2020-11-26] MEDS: HYDRALAZINE HCL 100MG TABLET PO SCH ×3 (05:57→22:00)
[2020-11-26] MEDS: INSULIN LISPRO 100 UNITS/ML SUBCUT SCH ×4 (06:39→21:00)
[2020-11-26] MEDS: BLOOD SUGAR DIAGNOSTIC STRIP TEST SCH ×4 (06:39→21:00)
[2020-11-26 06:47] LABS: BASOPHILS % 0.8 % (0.0-2.0); EOSINOPHILS % 1.5 % (0.0-5.0); LYMPHOCYTES % 13.3 % (20.0-50.0); MEAN CORPUSCULAR HEMOGLOBIN 29.5 pg (28.0-32.0); MEAN CORPUSCULAR VOLUME 88.1 fL (80.0-94.0); MEAN PLATELET VOLUME 7.8 fl (7.4-10.4); MONOCYTES % 10.8 % (2.0-8.0); NEUTROPHILS % 73.6 % (40.0-76.0); PLATELET 370 x1000/uL (130-400); RED BLOOD CELL COUNT 2.31 mill/uL (4.7-6.1); RED CELL DISTRIBUTION WIDTH 16.5 % (11.6-14.6)
[2020-11-26 07:30] LABS: HEMOGLOBIN. 6.8 g/dL (14.0-18.0)
[2020-11-26 07:31] LABS: HEMATOCRIT. 20.4 % (42.0-52.0)
[2020-11-26 08:00] VITALS: BP 132/78
[2020-11-26] MEDS: SEVELAMER CARBONATE 800 MG TABLET PO SCH ×3 (08:36→18:57)
[2020-11-26] MEDS: CINACALCET HCL 60MG TABLET PO SCH (08:37)
[2020-11-26] MEDS: DOXERCALCIFEROL 2.5 MCG CAPSULE PO SCH (08:37)
[2020-11-26] MEDS: ASPIRIN 81MG TABLET PO SCH (08:38)
[2020-11-26] MEDS: AMIODARONE HCL 200 MG TABLET PO SCH ×2 (08:38→22:37)
[2020-11-26] MEDS: CARVEDILOL 3.125 MG TABLET PO SCH ×2 (08:39→21:00)
[2020-11-26] MEDS: FOLIC ACID/VITAMIN B COMP W-C TABLET PO SCH (08:39)
[2020-11-26] MEDS: FERROUS SULFATE 325MG TABLET PO SCH ×2 (08:39→18:57)
[2020-11-26] MEDS: CLONIDINE 0.1MG TABLET PO SCH ×2 (08:40→23:47)
[2020-11-26] MEDS: FAMOTIDINE 20MG TABLET PO SCH (08:40)
[2020-11-26] MEDS: SERTRALINE HCL 25MG TABLET PO SCH (08:40)
[2020-11-26] MEDS: LIDOCAINE 5% PATCH TOP SCH (08:42)
[2020-11-26] MEDS: BACITRACIN 15GM TUBE TOP SCH ×4 (08:46→22:33)
[2020-11-26 13:27] LABS: INR 3.6; PROTHROMBIN TIME 34.5 sec (9.6-11.0)
[2020-11-26] MEDS: CEFTRIAXONE 2 G in DEXTROSE 5% WATER 50 ML IV SCH (15:25)
[2020-11-26] MEDS ORDERED: VANCOMYCIN 500 MG PREMIX 100 ML IV SCH (18:00)
[2020-11-26 20:00] VITALS: BP 120/67
[2020-11-26 20:10] VITALS: BP 121/67
[2020-11-26 20:37] VITALS: BP 115/73
[2020-11-26 20:41] VITALS: BP 115/73
[2020-11-26 20:55] VITALS: BP 144/77
[2020-11-26] MEDS: INSULIN GLARGINE UD 100 UNITS/ML SYR SUBCUT SCH (22:36)
[2020-11-26] MEDS: ATORVASTATIN CALCIUM 40MG TABLET PO SCH (22:37)
[2020-11-27] MEDS: DIPHENHYDRAMINE 50MG/ML VIAL IV PRN ×2 (02:04→15:01)
[2020-11-27] MEDS: BLOOD SUGAR DIAGNOSTIC STRIP TEST SCH ×2 (05:58→11:50)
[2020-11-27] MEDS: DILTIAZEM HCL 60MG TABLET PO SCH ×2 (05:58→12:05)
[2020-11-27] MEDS: HYDRALAZINE HCL 100MG TABLET PO SCH ×2 (05:58→14:00)
[2020-11-27 06:43] LABS: BASOPHILS % 1.3 % (0.0-2.0); EOSINOPHILS % 2.1 % (0.0-5.0); HEMATOCRIT. 23.9 % (42.0-52.0); HEMOGLOBIN. 8.1 g/dL (14.0-18.0); LYMPHOCYTES % 13.9 % (20.0-50.0); MEAN CORPUSCULAR HEMOGLOBIN 29.5 pg (28.0-32.0); MEAN CORPUSCULAR VOLUME 87.3 fL (80.0-94.0); MEAN PLATELET VOLUME 7.4 fl (7.4-10.4); MONOCYTES % 11.8 % (2.0-8.0); NEUTROPHILS % 70.9 % (40.0-76.0); PLATELET 353 x1000/uL (130-400); RED BLOOD CELL COUNT 2.74 mill/uL (4.7-6.1); RED CELL DISTRIBUTION WIDTH 15.8 % (11.6-14.6)
[2020-11-27 06:47] LABS: INR 3.6; PROTHROMBIN TIME 34.5 sec (9.6-11.0)
[2020-11-27 08:30] VITALS: BP 111/63
[2020-11-27] MEDS: SERTRALINE HCL 25MG TABLET PO SCH (09:00)
[2020-11-27] MEDS: INSULIN LISPRO 100 UNITS/ML SUBCUT SCH ×2 (09:00→12:09)
[2020-11-27] MEDS: BACITRACIN 15GM TUBE TOP SCH (09:00)
[2020-11-27] MEDS: ASPIRIN 81MG TABLET PO SCH (09:59)
[2020-11-27] MEDS: AMIODARONE HCL 200 MG TABLET PO SCH (09:59)
[2020-11-27] MEDS: SEVELAMER CARBONATE 800 MG TABLET PO SCH ×2 (09:59→12:06)
[2020-11-27] MEDS: FAMOTIDINE 20MG TABLET PO SCH (10:01)
[2020-11-27] MEDS: FOLIC ACID/VITAMIN B COMP W-C TABLET PO SCH (10:02)
[2020-11-27] MEDS: CINACALCET HCL 60MG TABLET PO SCH (10:02)
[2020-11-27] MEDS: FERROUS SULFATE 325MG TABLET PO SCH (10:02)
[2020-11-27] MEDS: CARVEDILOL 3.125 MG TABLET PO SCH (10:03)
[2020-11-27] MEDS: CLONIDINE 0.1MG TABLET PO SCH (10:04)
[2020-11-27] MEDS: LIDOCAINE 5% PATCH TOP SCH (10:05)
[2020-11-27] MEDS: CEFTRIAXONE 2 G in DEXTROSE 5% WATER 50 ML IV SCH (15:28)
[2020-11-27 16:41] VITALS: BP 113/59
== END 2020-11-27 17:20 | DRG 58 ==
PROVIDERS: ADMIT Psychiatry & Neurology Neurology; ATTEND Internal Medicine
PROC: 5A1D70Z Performance of Urinary Filtration, Intermittent, Less than 6 Hours Per Day (ICD-10-PCS; 2020-11-07)
PROC: 5A1D70Z Performance of Urinary Filtration, Intermittent, Less than 6 Hours Per Day (ICD-10-PCS; 2020-11-09)
PROC: 5A1D70Z Performance of Urinary Filtration, Intermittent, Less than 6 Hours Per Day (ICD-10-PCS; 2020-11-12)
PROC: 5A1D70Z Performance of Urinary Filtration, Intermittent, Less than 6 Hours Per Day (ICD-10-PCS; 2020-11-14)
PROC: 02HV33Z Insertion of Infusion Device into Superior Vena Cava, Percutaneous Approach (ICD-10-PCS; 2020-11-15)
PROC: B5181ZA Fluoroscopy of Superior Vena Cava using Low Osmolar Contrast, Guidance (ICD-10-PCS; 2020-11-15)
PROC: 5A1D70Z Performance of Urinary Filtration, Intermittent, Less than 6 Hours Per Day (ICD-10-PCS; 2020-11-16)
PROC: 30233N1 Transfusion of Nonautologous Red Blood Cells into Peripheral Vein, Percutaneous Approach (ICD-10-PCS; principal; 2020-11-17)
PROC: 5A1D70Z Performance of Urinary Filtration, Intermittent, Less than 6 Hours Per Day (ICD-10-PCS; 2020-11-17)
PROC: 5A1D70Z Performance of Urinary Filtration, Intermittent, Less than 6 Hours Per Day (ICD-10-PCS; 2020-11-19)
PROC: 5A1D70Z Performance of Urinary Filtration, Intermittent, Less than 6 Hours Per Day (ICD-10-PCS; 2020-11-21)
DX: I69.354 Hemiplegia and hemiparesis following cerebral infarction affecting left non-dominant side (principal); I63.40 Cerebral infarction due to embolism of unspecified cerebral artery; I13.2 Hypertensive heart and chronic kidney disease with heart failure and with stage 5 chronic kidney disease, or end stage renal disease; I67.4 Hypertensive encephalopathy; E11.22 Type 2 diabetes mellitus with diabetic chronic kidney disease; D64.9 Anemia, unspecified; E44.1 Mild protein-calorie malnutrition; D72.821 Monocytosis (symptomatic); E78.5 Hyperlipidemia, unspecified; E83.39 Other disorders of phosphorus metabolism; F32.9 Major depressive disorder, single episode, unspecified; I25.10 Atherosclerotic heart disease of native coronary artery without angina pectoris; I25.2 Old myocardial infarction; I34.0 Nonrheumatic mitral (valve) insufficiency; I50.42 Chronic combined systolic (congestive) and diastolic (congestive) heart failure; I89.0 Lymphedema, not elsewhere classified; K59.00 Constipation, unspecified; M13.0 Polyarthritis, unspecified; N18.6 End stage renal disease; N25.81 Secondary hyperparathyroidism of renal origin; N40.0 Benign prostatic hyperplasia without lower urinary tract symptoms; R47.01 Aphasia; S90.425A Blister (nonthermal), left lesser toe(s), initial encounter; Z53.20 Procedure and treatment not carried out because of patient's decision for unspecified reasons; Z20.822 Contact with and (suspected) exposure to COVID-19; L81.9 Disorder of pigmentation, unspecified; L84 Corns and callosities; R74.8 Abnormal levels of other serum enzymes; I16.9 Hypertensive crisis, unspecified; M25.461 Effusion, right knee; R31.9 Hematuria, unspecified; Z79.4 Long term (current) use of insulin; Z87.441 Personal history of nephrotic syndrome; Z68.29 Body mass index [BMI] 29.0-29.9, adult; Z95.2 Presence of prosthetic heart valve; Z99.2 Dependence on renal dialysis
CPT/HCPCS: 36415; 36573; 71045; 73560; 76881; 80048; 80202; 82270; 82962; 83540; 83550; 83970; 84100; 84145; 84153; 85025; 85027; 85044; 86705; 86706; 86803; 86850; 86900; 86920; 87340; 92523; 92610; 93923; 94640; 97110; 97112; 97163; 97166; 97530; 97535; 97542; A6261; C1725; J0696; J0885; J1200; J1815; J3370; J3490; J7040; J7060; P9016; P9021; Q0163; U0003; U0005; G0103

== ENCOUNTER 2021-02-06 13:03 | Emergency (ER) | payer MEDICAID ==
[~2021-02-06] VITALS: Ht 193 cm; Wt 97.5 kg
[~2021-02-06 13:03] MED LIST changes: +AMIO100T4 PO; +CALC0.253 PO; +CINA60 PO; +CLON-457 PO; +DILT60TA35 PO; +DIPH25TA24 PO; +DOCU100T PO; +FAMO20TA8 PO; +LIDO700A15 TP; -LISI20TA31 PO; +RENAVITE PO; +SENN-257 MT; +SERT25TA74 MT; +SEVE800T8 MT
[2021-02-06 15:17] LABS: BASOPHILS % 1.4 % (0.0-2.0); EOSINOPHILS % 1.3 % (0.0-5.0); LYMPHOCYTES % 17.9 % (20.0-50.0); MEAN CORPUSCULAR HEMOGLOBIN 34.6 pg (28.0-32.0); MEAN CORPUSCULAR VOLUME 101.5 fL (80.0-94.0); MEAN PLATELET VOLUME 7.9 fl (7.4-10.4); NEUTROPHILS % 68.4 % (40.0-76.0); PLATELET 396 x1000/uL (130-400); RED BLOOD CELL COUNT 2.02 mill/uL (4.7-6.1); RED CELL DISTRIBUTION WIDTH 18.3 % (11.6-14.6)
[2021-02-06 15:22] LABS: CHLORIDE 99 mEq/L (98-107)
[2021-02-06 15:24] LABS: HEMATOCRIT. 20.5 % (42.0-52.0)
[2021-02-06 15:26] LABS: INR 1.1; PARTIAL THROMBOPLASTIN TIME 27.4 sec (23.4-31.0); PROTHROMBIN TIME 11.3 sec (9.6-11.0)
[2021-02-06] MEDS ORDERED: HYDRALAZINE HCL 100MG TABLET PO STA (23:33)
[2021-02-06] MEDS ORDERED: DILTIAZEM HCL 60MG TABLET PO ONE (23:45)
[2021-02-06] MEDS ORDERED: CARVEDILOL 3.125 MG TABLET PO ONE (23:45)
[2021-02-07 00:07] VITALS: BP 150/71
== END 2021-02-07 00:17 ==
LOC: ER 13:03
DX: D64.9 Anemia, unspecified (principal); N17.9 Acute kidney failure, unspecified; R45.84 Anhedonia; I13.0 Hypertensive heart and chronic kidney disease with heart failure and stage 1 through stage 4 chronic kidney disease, or unspecified chronic kidney disease; I50.9 Heart failure, unspecified; E11.22 Type 2 diabetes mellitus with diabetic chronic kidney disease; N18.9 Chronic kidney disease, unspecified; Z79.4 Long term (current) use of insulin; Z79.899 Other long term (current) drug therapy; Z91.018 Allergy to other foods
CPT/HCPCS: 36415; 71045; 80053; 85025; 85610; 85730; 86850; 86900; 86901; 86920; 99285; J7040; Z7610; P9016

== ENCOUNTER 2021-08-09 07:36 | Emergency (ER) | payer MEDICAID ==
[~2021-08-09] VITALS: Ht 193 cm; Wt 112.0 kg
[2021-08-09] VITALS (16 sets, daily range): BP systolic 150–184; BP diastolic 84–100
[2021-08-09 08:33] LABS: EOSINOPHILS % 1.3 % (0.0-5.0); HEMATOCRIT. 33.2 % (42.0-52.0); HEMOGLOBIN. 10.6 g/dL (14.0-18.0); LYMPHOCYTES % 13.4 % (20.0-50.0); MEAN CORPUSCULAR VOLUME 97.4 fL (80.0-94.0); NEUTROPHILS % 70.3 % (40.0-76.0); PLATELET 290 x1000/uL (130-400); RED BLOOD CELL COUNT 3.41 mill/uL (4.7-6.1); RED CELL DISTRIBUTION WIDTH 18.7 % (11.6-14.6)
[2021-08-09 08:43] LABS: CHLORIDE 100 mEq/L (98-107); PROTHROMBIN TIME 10.7 sec (9.6-11.0)
[2021-08-09] MEDS ORDERED: CEFAZOLIN 1000MG PREMIX 50 ML IV SCH (08:45)
[2021-08-09] MEDS ORDERED: MORPHINE SULFATE 2 MG/ML CPJ (NOT FOR IM USE) IV ONE (09:00)
[2021-08-09] MEDS ORDERED: CEFAZOLIN 1000MG PREMIX 50 ML IV ONE (09:10)
[2021-08-09] MEDS ORDERED: LIDOCAINE HCL 1% 20ML VIAL (Pyxis) INJ ONE (09:10)
[2021-08-09] MEDS ORDERED: FENTANYL CITRATE/PF 50MCG/ML 2ML VIAL ONE (10:09)
[2021-08-09] MEDS ORDERED: FENTANYL CITRATE/PF 50MCG/ML 2ML VIAL IV SCH (10:15)
[2021-08-09] MEDS ORDERED: ACETAMINOPHEN 325MG TABLET PO ONE (11:15)
[2021-08-09] MEDS: SODIUM POLYSTYRENE SULFONATE 15 G/60 ML BOT PO ONE ×2 (11:17→11:24)
== END 2021-08-09 11:48 | disposition home or self-care (01) ==
LOC: ER 07:36
DX: T82.41XA Breakdown (mechanical) of vascular dialysis catheter, initial encounter (principal); E87.5 Hyperkalemia; I11.0 Hypertensive heart disease with heart failure; I50.9 Heart failure, unspecified; E78.00 Pure hypercholesterolemia, unspecified; E11.9 Type 2 diabetes mellitus without complications; Z20.822 Contact with and (suspected) exposure to COVID-19; Z91.018 Allergy to other foods; Z79.899 Other long term (current) drug therapy; Z86.73 Personal history of transient ischemic attack (TIA), and cerebral infarction without residual deficits; Z98.890 Other specified postprocedural states
CPT/HCPCS: 36415; 36558; 76937; 77001; 80053; 85025; 85610; 87426; 93005; 96365; 96375; 99284; C1750; C1769; C1887; J0690; J1642; J2270; J3010; J3490; Z7610; 99152; 99153; G0500

== ENCOUNTER → 2021-09-26 | Day surgery (SDC) | payer MEDICAID ==
[~2021-09-26] VITALS: Ht 193 cm; Wt 110.0 kg
[~2021-09-26] MED LIST changes: +AMLO5TAB88 PO; +ASCO500C18 PO; +BACITRACIN 15GM TUBE TOP ONE; +BUPIVACAINE HCL/PF 0.5% (5MG/ML) 30ML ONE; +CALC667C PO; +DEXAMETHASONE 4MG/ML 1ML VIAL ONE; +DIPH1TAB24 PO; +EPOE200014 SQ; +FENTANYL CITRATE/PF 50MCG/ML 2ML VIAL IV PRN; +FENTANYL CITRATE/PF 50MCG/ML 2ML VIAL ONE; +FOLI0.8T23 PO; +HEPARIN SODIUM 1,000 UNIT/1ML VIAL IV NR; +HEPARIN SODIUM 1,000 UNIT/1ML VIAL IV ONE; +HYDROCODONE/ACETAMINOPHEN 5/325MG TABLET PO PRN; +HYDROMORPHONE HCL/PF 2MG/ML CPJ IV PRN; +INSU100I24 SQ; +INSU100I32 SQ; +LIDOCAINE HCL 1% 20ML VIAL (Pyxis) INJ ONE; +LIDOCAINE HCL/PF 1% 10 MG/ML 5ML VIAL ONE; +MEPERIDINE HCL/PF 25MG/ML CPJ IV PRN; +METOCLOPRAMIDE HCL 10MG/2ML VIAL ONE; +MIDAZOLAM HCL 2 MG/2 ML VIAL ONE; +NALOXONE HCL 0.4MG/ML VIAL IV PRN; +ONDANSETRON HCL 4MG/2ML INJ IV PRN; +ONDANSETRON HCL 4MG/2ML INJ ONE; +POLYMYXIN B SULFATE 500000 UNITS/VIAL ONE; +PROPOFOL 200MG/20ML VIAL IV ONE; +SODIUM CHLORIDE 0.9% 1,000 ML IV SCH; +SODIUM CHLORIDE 0.9% 500 ML IV ONE; +THROMBIN (BOVINE) 5000 UNITS/VIAL TOP ONE
[2021-09-26 06:13] LABS: BASOPHILS % 1.4 % (0.0-2.0); EOSINOPHILS % 2.3 % (0.0-5.0); HEMATOCRIT. 28.4 % (42.0-52.0); HEMOGLOBIN. 9.2 g/dL (14.0-18.0); MEAN CORPUSCULAR HEMOGLOBIN 30.1 pg (28.0-32.0); MEAN CORPUSCULAR VOLUME 93.4 fL (80.0-94.0); MEAN PLATELET VOLUME 7.5 fl (7.4-10.4); MONOCYTES % 13.7 % (2.0-8.0); NEUTROPHILS % 61.6 % (40.0-76.0); PLATELET 359 x1000/uL (130-400); RED BLOOD CELL COUNT 3.04 mill/uL (4.7-6.1); RED CELL DISTRIBUTION WIDTH 20.3 % (11.6-14.6)
[2021-09-26 06:37] LABS: PARTIAL THROMBOPLASTIN TIME 32.3 sec (23.4-31.0); PROTHROMBIN TIME 11.1 sec (9.6-11.0)
== END | disposition home or self-care (01) ==
LOC: OR 05:36
PROVIDERS: ATTEND Surgery Vascular Surgery
DX: I12.0 Hypertensive chronic kidney disease with stage 5 chronic kidney disease or end stage renal disease (principal); N18.6 End stage renal disease; E11.22 Type 2 diabetes mellitus with diabetic chronic kidney disease; I25.10 Atherosclerotic heart disease of native coronary artery without angina pectoris; Z79.84 Long term (current) use of oral hypoglycemic drugs; Z79.899 Other long term (current) drug therapy; Z98.890 Other specified postprocedural states; Z91.013 Allergy to seafood; Z88.8 Allergy status to other drugs, medicaments and biological substances; Z20.822 Contact with and (suspected) exposure to COVID-19
CPT/HCPCS: 35903; 36415; 37607; 80048; 85025; 85610; 85730; 86850; 86900; 86901; 86920; 87426; 88300; 88304; C1884; J1100; J1644; J2250; J2405; J2704; J2765; J3010; J3490; J7040

== ENCOUNTER → 2021-11-12 | Day surgery (SDC) | payer MEDICAID ==
[~2021-11-12] VITALS: Ht 193 cm; Wt 104.0 kg
[~2021-11-12] MED LIST changes: +BUPIVACAINE HCL/PF 0.5% (5MG/ML) 10ML ONE; -BUPIVACAINE HCL/PF 0.5% (5MG/ML) 30ML ONE; +CEFAZOLIN SODIUM 1000MG/VIAL ONE; -DEXAMETHASONE 4MG/ML 1ML VIAL ONE; -DILT240C91 PO; -DILT60TA35 PO; -DOCU100T PO; -FAMO20TA8 PO; -HEPARIN SODIUM 1,000 UNIT/1ML VIAL IV NR; -INSLIS SUBCUT; +LABETALOL 5MG/ML SYR 20 MG/4 ML SYRINGE IV PRN; -LANTUSUD SUBCUT; -LIDO700A15 TP; -LIDOCAINE HCL/PF 1% 10 MG/ML 5ML VIAL ONE; -LIP40 PO; -LOSA100T3 PO; -METOCLOPRAMIDE HCL 10MG/2ML VIAL ONE; -MULT-1204 PO; -ONDANSETRON HCL 4MG/2ML INJ ONE; -PROT40 MT; -RENAVITE PO; -SERT25TA74 MT; -SEVE800T8 MT; -SODIUM CHLORIDE 0.9% 1,000 ML IV SCH; +SODIUM CHLORIDE 0.9% INJ 3ML FLUSH IVF SCH
[2021-11-12 12:04] LABS: BASOPHILS % 1.6 % (0.0-2.0); EOSINOPHILS % 3.8 % (0.0-5.0); HEMATOCRIT. 27.7 % (42.0-52.0); LYMPHOCYTES % 23.7 % (20.0-50.0); MEAN CORPUSCULAR HEMOGLOBIN 31.3 pg (28.0-32.0); MEAN CORPUSCULAR VOLUME 96.2 fL (80.0-94.0); MONOCYTES % 12.6 % (2.0-8.0); NEUTROPHILS % 58.3 % (40.0-76.0); PLATELET 310 x1000/uL (130-400); RED BLOOD CELL COUNT 2.88 mill/uL (4.7-6.1); RED CELL DISTRIBUTION WIDTH 20.1 % (11.6-14.6)
[2021-11-12 13:59] LABS: PARTIAL THROMBOPLASTIN TIME 30.6 sec (23.4-31.0); PROTHROMBIN TIME 10.9 sec (9.6-11.0)
[2021-11-12 18:47] VITALS: BP 160/82
== END | disposition home or self-care (01) ==
LOC: OR 11:01
PROVIDERS: ATTEND Surgery Vascular Surgery
DX: I13.2 Hypertensive heart and chronic kidney disease with heart failure and with stage 5 chronic kidney disease, or end stage renal disease (principal); N18.6 End stage renal disease; I50.42 Chronic combined systolic (congestive) and diastolic (congestive) heart failure; E11.22 Type 2 diabetes mellitus with diabetic chronic kidney disease; I25.10 Atherosclerotic heart disease of native coronary artery without angina pectoris; E78.5 Hyperlipidemia, unspecified; F32.9 Major depressive disorder, single episode, unspecified; Z99.2 Dependence on renal dialysis; Z79.4 Long term (current) use of insulin; Z79.899 Other long term (current) drug therapy; Z98.890 Other specified postprocedural states; Z91.013 Allergy to seafood; Z88.8 Allergy status to other drugs, medicaments and biological substances; Z20.822 Contact with and (suspected) exposure to COVID-19
CPT/HCPCS: 36415; 36819; 80048; 82962; 85025; 85610; 85730; 87426; 93005; C9803; J0690; J1644; J2250; J2704; J3010; J3490

== ENCOUNTER 2022-01-10 06:47 | Inpatient (IN) | payer MEDICAID ==
[~2022-01-10] VITALS: Ht 193 cm; Wt 78.0 kg
[~2022-01-10 06:47] MED LIST changes: -BACITRACIN 15GM TUBE TOP ONE; -BUPIVACAINE HCL/PF 0.5% (5MG/ML) 10ML ONE; -CEFAZOLIN SODIUM 1000MG/VIAL ONE; -FENTANYL CITRATE/PF 50MCG/ML 2ML VIAL IV PRN; -FENTANYL CITRATE/PF 50MCG/ML 2ML VIAL ONE; -HEPARIN SODIUM 1,000 UNIT/1ML VIAL IV ONE; -HYDROCODONE/ACETAMINOPHEN 5/325MG TABLET PO PRN; -HYDROMORPHONE HCL/PF 2MG/ML CPJ IV PRN; -LABETALOL 5MG/ML SYR 20 MG/4 ML SYRINGE IV PRN; -LIDOCAINE HCL 1% 20ML VIAL (Pyxis) INJ ONE; -MEPERIDINE HCL/PF 25MG/ML CPJ IV PRN; -MIDAZOLAM HCL 2 MG/2 ML VIAL ONE; -NALOXONE HCL 0.4MG/ML VIAL IV PRN; -ONDANSETRON HCL 4MG/2ML INJ IV PRN; -POLYMYXIN B SULFATE 500000 UNITS/VIAL ONE; -PROPOFOL 200MG/20ML VIAL IV ONE; -SODIUM CHLORIDE 0.9% 500 ML IV ONE; -SODIUM CHLORIDE 0.9% INJ 3ML FLUSH IVF SCH; -THROMBIN (BOVINE) 5000 UNITS/VIAL TOP ONE
[2022-01-10] MEDS ORDERED: SODIUM CHLORIDE 0.9% 1,000 ML IV ONE (07:15)
[2022-01-10 07:35] LABS: BASOPHILS % 0.4 % (0.0-2.0); EOSINOPHILS % 0.9 % (0.0-5.0); HEMATOCRIT. 38.3 % (42.0-52.0); HEMOGLOBIN. 12.4 g/dL (14.0-18.0); LYMPHOCYTES % 8.4 % (20.0-50.0); MEAN CORPUSCULAR HEMOGLOBIN 30.1 pg (28.0-32.0); MEAN CORPUSCULAR VOLUME 92.9 fL (80.0-94.0); MEAN PLATELET VOLUME 8.3 fl (7.4-10.4); MONOCYTES % 10.3 % (2.0-8.0); PLATELET 277 x1000/uL (130-400); RED BLOOD CELL COUNT 4.13 mill/uL (4.7-6.1)
[2022-01-10 07:41] LABS: CHLORIDE 99 mEq/L (98-107)
[2022-01-10 07:45] LABS: PROTHROMBIN TIME 10.9 sec (9.6-11.0)
[2022-01-10 12:40] VITALS: BP 157/77
[2022-01-10 12:50] VITALS: BP 157/77
[2022-01-10] MEDS ORDERED: AMLODIPINE 10MG TABLET PO SCH (14:15)
[2022-01-10] MEDS ORDERED: ACETAMINOPHEN 325MG TABLET PO PRN (14:15)
[2022-01-10] MEDS ORDERED: ONDANSETRON HCL 4MG/2ML INJ IV PRN (14:15)
[2022-01-10 16:00] VITALS: BP 155/80
[2022-01-10] MEDS ORDERED: TEMAZEPAM 15MG CAPSULE PO PRN (17:15)
[2022-01-10] MEDS ORDERED: SORBITOL 70% SOLN 30ML PO PRN (17:15)
[2022-01-10] MEDS: CALCIUM ACETATE 667MG CAPSULE PO SCH (18:32)
[2022-01-10] MEDS ORDERED: DEXTROSE 50% WATER 50ML SYRINGE IV PRN (19:00)
[2022-01-10 20:00] VITALS: BP 154/77
[2022-01-10 21:07] LABS: HEPATITIS B SURFACE ANTIGEN NEGATIVE
[2022-01-10] MEDS: CARVEDILOL 3.125 MG TABLET PO SCH (21:14)
[2022-01-10] MEDS: HYDRALAZINE HCL 100MG TABLET PO SCH (21:14)
[2022-01-10] MEDS: BLOOD SUGAR DIAGNOSTIC STRIP TEST SCH (21:18)
[2022-01-10] MEDS: INSULIN LISPRO 100 UNITS/ML SUBCUT SCH (21:24)
[2022-01-11] VITALS: BP 136/60
[2022-01-11] MEDS ORDERED: CEPH500C2 PO (00:31)
[2022-01-11] MEDS: BLOOD SUGAR DIAGNOSTIC STRIP TEST SCH ×4 (07:20→21:00)
[2022-01-11 08:32] VITALS: BP 137/61
[2022-01-11] MEDS: INSULIN LISPRO 100 UNITS/ML SUBCUT SCH ×4 (08:50→21:00)
[2022-01-11] MEDS: CALCIUM ACETATE 667MG CAPSULE PO SCH ×3 (08:51→18:28)
[2022-01-11] MEDS: DOCUSATE SODIUM 100MG CAPSULE PO SCH ×2 (08:51→17:00)
[2022-01-11] MEDS: HYDRALAZINE HCL 100MG TABLET PO SCH ×2 (08:51→21:49)
[2022-01-11] MEDS: AMIODARONE HCL 200 MG TABLET PO SCH ×2 (08:51→18:28)
[2022-01-11] MEDS: ASPIRIN 81MG TABLET PO SCH (08:51)
[2022-01-11] MEDS: CARVEDILOL 3.125 MG TABLET PO SCH ×2 (08:51→21:48)
[2022-01-11] MEDS: CINACALCET HCL 60MG TABLET PO SCH (08:51)
[2022-01-11] MEDS: CALCITRIOL 0.25MCG CAPSULE PO SCH (08:52)
[2022-01-11] MEDS: FOLIC ACID/VITAMIN B COMP W-C TABLET PO SCH (08:52)
[2022-01-11] MEDS: AMLODIPINE 10MG TABLET PO SCH (08:53)
[2022-01-11 09:16] LABS: BASOPHILS % 1.2 % (0.0-2.0); EOSINOPHILS % 2.8 % (0.0-5.0); HEMATOCRIT. 33.4 % (42.0-52.0); HEMOGLOBIN. 10.8 g/dL (14.0-18.0); MEAN CORPUSCULAR HEMOGLOBIN 29.8 pg (28.0-32.0); MEAN CORPUSCULAR VOLUME 91.8 fL (80.0-94.0); MEAN PLATELET VOLUME 9.3 fl (7.4-10.4); MONOCYTES % 13.7 % (2.0-8.0); NEUTROPHILS % 63.3 % (40.0-76.0); PLATELET 252 x1000/uL (130-400); RED BLOOD CELL COUNT 3.64 mill/uL (4.7-6.1); RED CELL DISTRIBUTION WIDTH 17.7 % (11.6-14.6)
[2022-01-11 09:39] LABS: PHOSPHORUS 7.7 mg/dL (2.5-4.9)
[2022-01-11] MEDS ORDERED: CEPHALEXIN 250 MG/5 ML 100ML PO SCH (11:15)
[2022-01-11] MEDS: CEPHALEXIN 250MG CAPSULE PO SCH ×2 (12:20→21:39)
[2022-01-11 16:00] VITALS: BP 131/64
[2022-01-11 20:00] VITALS: BP 138/71
[2022-01-12] VITALS: BP 132/74
[2022-01-12 04:00] VITALS: BP 140/64
[2022-01-12] MEDS: BLOOD SUGAR DIAGNOSTIC STRIP TEST SCH ×2 (07:20→12:05)
[2022-01-12 07:37] LABS: BASOPHILS % 0.9 % (0.0-2.0); EOSINOPHILS % 3.4 % (0.0-5.0); HEMATOCRIT. 32.6 % (42.0-52.0); HEMOGLOBIN. 10.6 g/dL (14.0-18.0); LYMPHOCYTES % 15.5 % (20.0-50.0); MEAN CORPUSCULAR HEMOGLOBIN 30.1 pg (28.0-32.0); MEAN CORPUSCULAR VOLUME 92.2 fL (80.0-94.0); MEAN PLATELET VOLUME 9.1 fl (7.4-10.4); MONOCYTES % 12.1 % (2.0-8.0); NEUTROPHILS % 68.1 % (40.0-76.0); PLATELET 275 x1000/uL (130-400); RED BLOOD CELL COUNT 3.53 mill/uL (4.7-6.1); RED CELL DISTRIBUTION WIDTH 17.9 % (11.6-14.6)
[2022-01-12] MEDS: DOCUSATE SODIUM 100MG CAPSULE PO SCH (09:00)
[2022-01-12] MEDS: CALCITRIOL 0.25MCG CAPSULE PO SCH (09:00)
[2022-01-12] MEDS: FOLIC ACID/VITAMIN B COMP W-C TABLET PO SCH (09:00)
[2022-01-12] MEDS: AMIODARONE HCL 200 MG TABLET PO SCH (09:00)
[2022-01-12] MEDS: AMLODIPINE 10MG TABLET PO SCH (09:07)
[2022-01-12] MEDS: INSULIN LISPRO 100 UNITS/ML SUBCUT SCH ×2 (09:09→12:50)
[2022-01-12] MEDS: HYDRALAZINE HCL 100MG TABLET PO SCH (09:11)
[2022-01-12] MEDS: ASPIRIN 81MG TABLET PO SCH (09:11)
[2022-01-12] MEDS: CARVEDILOL 3.125 MG TABLET PO SCH (09:11)
[2022-01-12] MEDS: CEPHALEXIN 250MG CAPSULE PO SCH (09:11)
[2022-01-12] MEDS: CINACALCET HCL 60MG TABLET PO SCH (09:11)
[2022-01-12] MEDS: CALCIUM ACETATE 667MG CAPSULE PO SCH ×2 (09:11→12:50)
== END 2022-01-12 18:29 | disposition home or self-care (01) | DRG 52 ==
LOC: ER 06:47 → 6WST 11:33 → EDBEDREQSVC 11:38 → EDBEDREQ 11:38 → ENRESERV 11:53
PROVIDERS: ADMIT Internal Medicine; ATTEND Internal Medicine
PROC: 5A1D70Z Performance of Urinary Filtration, Intermittent, Less than 6 Hours Per Day (ICD-10-PCS; principal; 2022-01-10)
DX: G93.41 Metabolic encephalopathy (principal); I13.2 Hypertensive heart and chronic kidney disease with heart failure and with stage 5 chronic kidney disease, or end stage renal disease; N18.6 End stage renal disease; D63.1 Anemia in chronic kidney disease; N25.81 Secondary hyperparathyroidism of renal origin; E11.21 Type 2 diabetes mellitus with diabetic nephropathy; E11.22 Type 2 diabetes mellitus with diabetic chronic kidney disease; E78.00 Pure hypercholesterolemia, unspecified; S00.03XA Contusion of scalp, initial encounter; N05.9 Unspecified nephritic syndrome with unspecified morphologic changes; F32.A Depression, unspecified; E21.3 Hyperparathyroidism, unspecified; E78.5 Hyperlipidemia, unspecified; I89.0 Lymphedema, not elsewhere classified; I25.10 Atherosclerotic heart disease of native coronary artery without angina pectoris; S81.811A Laceration without foreign body, right lower leg, initial encounter; I50.42 Chronic combined systolic (congestive) and diastolic (congestive) heart failure; Z96.659 Presence of unspecified artificial knee joint; Z79.899 Other long term (current) drug therapy; I69.921 Dysphasia following unspecified cerebrovascular disease; Z91.02 Food additives allergy status; Z99.2 Dependence on renal dialysis; Z95.2 Presence of prosthetic heart valve; Z87.441 Personal history of nephrotic syndrome; X58.XXXA Exposure to other specified factors, initial encounter; Y93.89 Activity, other specified; Y92.89 Other specified places as the place of occurrence of the external cause; Y99.8 Other external cause status
CPT/HCPCS: 36415; 71045; 80048; 80053; 82962; 83605; 84100; 84145; 85025; 86705; 86709; 86803; 87340; 93005; 99285; J1815; J7030

== ENCOUNTER 2022-06-09 09:23 | Inpatient (IN) | payer MEDICAID ==
[~2022-06-09] VITALS: Ht 193 cm; Wt 92.1 kg
[~2022-06-09 09:23] MED LIST changes: +CEPH500C2 PO
[2022-06-09 13:00] LABS: BASOPHILS % 1.2 % (0.0-2.0); EOSINOPHILS % 0.8 % (0.0-5.0); LYMPHOCYTES % 12.9 % (20.0-50.0); MEAN CORPUSCULAR HEMOGLOBIN 29.1 pg (28.0-32.0); MEAN CORPUSCULAR VOLUME 89.3 fL (80.0-94.0); MEAN PLATELET VOLUME 7.7 fl (7.4-10.4); MONOCYTES % 10.3 % (2.0-8.0); NEUTROPHILS % 74.8 % (40.0-76.0); PLATELET 458 x1000/uL (130-400); RED BLOOD CELL COUNT 2.27 mill/uL (4.7-6.1); RED CELL DISTRIBUTION WIDTH 18.5 % (11.6-14.6)
[2022-06-09 13:02] LABS: CHLORIDE 94 mEq/L (98-107)
[2022-06-09 13:26] LABS: HEMOGLOBIN. 6.6 g/dL (14.0-18.0)
[2022-06-09 13:27] LABS: HEMATOCRIT. 20.2 % (42.0-52.0)
[2022-06-09] MEDS ORDERED: BACITRACIN ZINC OINT UDPKT TOP SCH (14:45)
[2022-06-09] MEDS ORDERED: ASPIRIN 325MG EC TABLET PO NR (19:00)
[2022-06-10] VITALS (10 sets, daily range): BP systolic 104–144; BP diastolic 47–75
[2022-06-10] MEDS ORDERED: DEXTROSE 50% WATER 50ML SYRINGE IV PRN (01:45)
[2022-06-10] MEDS ORDERED: POTASSIUM CHLORIDE 20MEQ TABLET SR PO NR (01:45)
[2022-06-10] MEDS: BLOOD SUGAR DIAGNOSTIC STRIP TEST SCH ×4 (06:11→21:00)
[2022-06-10] MEDS: INSULIN LISPRO 100 UNITS/ML SUBCUT SCH ×4 (06:12→21:00)
[2022-06-10 09:57] LABS: BASOPHILS % 1.3 % (0.0-2.0); EOSINOPHILS % 1.8 % (0.0-5.0); LYMPHOCYTES % 17.7 % (20.0-50.0); MEAN CORPUSCULAR HEMOGLOBIN 29.7 pg (28.0-32.0); MEAN CORPUSCULAR VOLUME 91.1 fL (80.0-94.0); MONOCYTES % 12.6 % (2.0-8.0); NEUTROPHILS % 66.6 % (40.0-76.0); PLATELET 399 x1000/uL (130-400); RED BLOOD CELL COUNT 2.23 mill/uL (4.7-6.1); RED CELL DISTRIBUTION WIDTH 18.1 % (11.6-14.6)
[2022-06-10 10:05] LABS: HEMOGLOBIN. 6.6 g/dL (14.0-18.0)
[2022-06-10 10:06] LABS: HEMATOCRIT. 20.3 % (42.0-52.0)
[2022-06-10 10:35] LABS: CHLORIDE 95 mEq/L (98-107)
[2022-06-10] MEDS: CALCIUM ACETATE 667MG CAPSULE PO SCH (18:13)
[2022-06-10 20:11] LABS: HEPATITIS B SURFACE ANTIGEN NEGATIVE
[2022-06-10 20:22] LABS: HEMATOCRIT 23.1 % (42.0-52.0); HEMOGLOBIN 7.7 g/dL (14.0-18.0)
[2022-06-11] VITALS (15 sets, daily range): BP systolic 94–154; BP diastolic 55–85
[2022-06-11] MEDS: BLOOD SUGAR DIAGNOSTIC STRIP TEST SCH ×3 (06:05→17:10)
[2022-06-11] MEDS: INSULIN LISPRO 100 UNITS/ML SUBCUT SCH ×3 (06:15→17:40)
[2022-06-11 06:49] LABS: BASOPHILS % 1.4 % (0.0-2.0); EOSINOPHILS % 2.1 % (0.0-5.0); HEMATOCRIT. 22.5 % (42.0-52.0); HEMOGLOBIN. 7.5 g/dL (14.0-18.0); LYMPHOCYTES % 16.3 % (20.0-50.0); MEAN CORPUSCULAR HEMOGLOBIN 30.1 pg (28.0-32.0); MEAN CORPUSCULAR VOLUME 90.5 fL (80.0-94.0); MEAN PLATELET VOLUME 7.9 fl (7.4-10.4); MONOCYTES % 10.9 % (2.0-8.0); NEUTROPHILS % 69.3 % (40.0-76.0); PLATELET 374 x1000/uL (130-400); RED BLOOD CELL COUNT 2.49 mill/uL (4.7-6.1); RED CELL DISTRIBUTION WIDTH 17.9 % (11.6-14.6)
[2022-06-11] MEDS: CALCIUM ACETATE 667MG CAPSULE PO SCH ×3 (08:53→17:40)
[2022-06-11] MEDS ORDERED: CALCITRIOL 0.25MCG CAPSULE PO SCH (09:00)
[2022-06-11] MEDS ORDERED: AMLODIPINE 10MG TABLET PO SCH (09:00)
[2022-06-11] MEDS ORDERED: CINACALCET HCL 60MG TABLET PO SCH (09:00)
[2022-06-11] MEDS ORDERED: AMOX1TAB15 MT (10:26)
[2022-06-11] MEDS ORDERED: AMOXICILLIN/POTASSIUM CLAVULANATE 500/125MG TAB PO NR (12:00)
[2022-06-11] MEDS ORDERED: DIPHENHYDRAMINE 50MG/ML VIAL IV NR (14:15)
[2022-06-12 20:03] LABS: PHOSPHORUS 7.2 mg/dL (2.5-4.9)
== END 2022-06-11 19:46 | disposition home or self-care (01) | DRG 663 ==
LOC: ER 09:23 → MICUSO 18:48 → EDBEDREQ 19:04 → EDBEDREQTM 19:04 → 8WST 06-10 01:24
PROVIDERS: ADMIT Internal Medicine; ATTEND Internal Medicine
PROC: 30233N1 Transfusion of Nonautologous Red Blood Cells into Peripheral Vein, Percutaneous Approach (ICD-10-PCS; principal; 2022-06-09)
PROC: 5A1D70Z Performance of Urinary Filtration, Intermittent, Less than 6 Hours Per Day (ICD-10-PCS; 2022-06-11)
DX: D64.9 Anemia, unspecified (principal); I13.2 Hypertensive heart and chronic kidney disease with heart failure and with stage 5 chronic kidney disease, or end stage renal disease; E44.1 Mild protein-calorie malnutrition; N18.6 End stage renal disease; E87.1 Hypo-osmolality and hyponatremia; L03.115 Cellulitis of right lower limb; L97.919 Non-pressure chronic ulcer of unspecified part of right lower leg with unspecified severity; E10.22 Type 1 diabetes mellitus with diabetic chronic kidney disease; D63.1 Anemia in chronic kidney disease; I25.10 Atherosclerotic heart disease of native coronary artery without angina pectoris; I50.22 Chronic systolic (congestive) heart failure; E87.6 Hypokalemia; F32.A Depression, unspecified; E78.00 Pure hypercholesterolemia, unspecified; Z86.73 Personal history of transient ischemic attack (TIA), and cerebral infarction without residual deficits; Z99.2 Dependence on renal dialysis; Z87.441 Personal history of nephrotic syndrome; Z95.2 Presence of prosthetic heart valve; Z79.4 Long term (current) use of insulin; Z96.659 Presence of unspecified artificial knee joint; Z79.899 Other long term (current) drug therapy; Z20.822 Contact with and (suspected) exposure to COVID-19
CPT/HCPCS: 36415; 71045; 80048; 80053; 82962; 83036; 83735; 83880; 84100; 84484; 85014; 85018; 85025; 86705; 86709; 86803; 86850; 86900; 86920; 87340; 87426; 90935; 93005; 93970; 99291; J1200; P9016